=== PATIENT | female | born 1935 | race Native Hawaiian/Other Pacific Islander ===

== ENCOUNTER 2017-08-09 15:29 | Inpatient (IN) | payer MEDICARE, OTHER ==
[2017-08-09] MEDS ORDERED: ASPIRIN 325 MG TAB PO STA (17:19)
[2017-08-09 17:52] LABS: Anisocytosis Slight; Basophils # (A) 0.1 k/uL (0-0.2); Basophils % (A) 1 %; Eosinophils # (A) 0.3 k/uL (0-0.7); Eosinophils % (A) 2 %; Lymphocytes # (A) 2.3 k/uL (1.0-4.8); Lymphocytes % (A) 17 %; MCH 28.1 pg (25.0-35.0); MCHC 33.3 g/dL (31.0-37.0); MCV 84.2 fL (80.0-100.0); Mean Platelet Volume 6.8; Monocytes # (A) 0.9 k/uL (0-1.0); Monocytes % (A) 7 %; Neutrophils # (A) 9.7 k/uL (1.3-7.7); Neutrophils % (A) 71 %; Platelet Count 278 k/uL (150-450); RBC 4.27 m/uL (3.80-5.40); RDW 16.3 % (11.5-15.5); WBC 13.7 k/uL (3.8-10.6)
[2017-08-09 18:04] LABS: Calcium 8.9 mg/dL (8.4-10.2); Potassium 4.4 mmol/L (3.5-5.1)
[2017-08-09 18:07] LABS: Prothrombin Time 10.1 sec (9.0-12.0)
--- NOTE | 2017-08-09 18:13 | XR ---
EXAMINATION TYPE: XR chest 2V DATE OF EXAM: 08/09/2017 COMPARISON: 08/23/2013 HISTORY: Chest pain TECHNIQUE: Frontal and lateral views of the chest are obtained. FINDINGS: There is no heart failure nor confluent pneumonic infiltrate. There is some coarsening of interstitial markings. Bony thorax is intact. Costophrenic angles are clear. IMPRESSION: Mild pulmonary fibrosis. No active cardiopulmonary disease. No change. There is arthritic change noted at the shoulder joints.
[2017-08-09] MEDS ORDERED: traMADol 50 MG TAB PO PRN (20:22)
[2017-08-09] MEDS ORDERED: MORPHINE SULFATE 2 MG/ML SYRINGE IV PRN (20:22)
[2017-08-09] MEDS ORDERED: IBUPROFEN 400 MG TAB PO PRN (20:22)
[2017-08-09] MEDS ORDERED: NALOXONE 0.4 MG/ML 1 ML VIAL IV PRN (20:22)
[2017-08-09] MEDS ORDERED: ONDANSETRON 4 MG/2 ML VIAL IVP PRN (20:22)
[2017-08-09] MEDS ORDERED: ACETAMINOPHEN TAB 325 MG TAB PO PRN (20:22)
--- NOTE | 2017-08-09 20:22 | ED ---
General Adult HPI - General Chief complaint: Back Pain/Injury Stated complaint: left shoulder/back pain Time Seen by Provider: 08/09/17 16:37 Source: family Mode of arrival: ambulatory Limitations: language barrier - History of Present Illness Initial comments: 81-year-old female presenting for evaluation of left upper back pain for the last couple months. She states that there was no identifiable etiology that has been unrelenting. It is nonreproducible and there is no associated chest pain however she does state that she has some paresthesias to her left arm with it. The patient is not very active and is unsure if there is associated worsening with exertion. Denies associated fevers, chills, nausea, vomiting, shortness of breath. She does have risk factors and states she has a family history. Last stress test was years ago and she is unsure when it was. She does have a roofing superintendent Dr. Saha who she follows with. - Related Data Home Medications Medication Instructions Recorded Confirmed Atorvastatin [Lipitor] 10 mg PO HS 08/23/13 08/09/17 Gabapentin [Neurontin] 300 mg PO BID 08/23/13 08/09/17 Hydrocortisone [Cortef] 10 mg PO QAM 08/23/13 08/09/17 Hydrocortisone [Cortef] 20 mg PO HS 08/23/13 08/09/17 Insulin Aspart [NovoLOG 15 unit SQ TID 08/23/13 08/09/17 (formulary)] Insulin Glargine [Lantus] 26 unit SQ DAILY 08/23/13 08/09/17 Levothyroxine Sodium [Synthroid] 137 mcg PO DAILY 08/23/13 08/09/17 Allopurinol [Zyloprim] 100 mg PO DAILY 08/09/17 08/09/17 Carvedilol [Coreg] 25 mg PO HS 08/09/17 08/09/17 Furosemide [Lasix] 20 mg PO DAILY 08/09/17 08/09/17 amLODIPine BESYLATE [Norvasc] 10 mg PO HS 08/09/17 08/09/17 hydrALAZINE HCL [Apresoline] 25 mg PO TID 08/09/17 08/09/17 Allergies Allergy/AdvReac Type Severity Reaction Status Date / Time No Known Allergies Allergy Verified 08/09/17 16:51 Review of Systems ROS Statement: Those systems with pertinent positive or pertinent negative responses have been documented in the HPI. ROS Other: All systems not noted in ROS Statement are negative. Constitutional: Denies: fever, chills Eyes: Denies: eye pain, vision change ENT: Denies: ear pain, throat pain Respiratory: Denies: cough, dyspnea, wheezes Cardiovascular: Denies: chest pain, palpitations, dyspnea on exertion, syncope Endocrine: Denies: fatigue, polydipsia, polyuria Gastrointestinal: Denies: abdominal pain, nausea, vomiting, diarrhea, constipation Genitourinary: Denies: urgency, dysuria Musculoskeletal: Reports: back pain. Denies: arthralgia, myalgia Skin: Denies: rash, lesions Neurological: Reports: paresthesias (left arm). Denies: headache, weakness Psychiatric: Denies: anxiety, depression Hematological/Lymphatic: Denies: easy bleeding, easy bruising Past Medical History Past Medical History: COPD, Diabetes Mellitus, GERD/Reflux, Hyperlipidemia, Hypertension, Osteoarthritis (OA), Thyroid Disorder Additional Past Medical History / Comment(s): Adrenal insufficiency requiring chronic hydrocortisone replacement, menopause, prior UTI, diabetic neuropathy gout History of Any Multi-Drug Resistant Organisms: ESBL Date of last positivie culture/infection: 08-24-13 MDRO Source:: Urine Past Surgical History: Joint Replacement Past Anesthesia/Blood Transfusion Reactions: No Reported Reaction, Postoperative Nausea & Vomiting (PONV) Past Psychological History: No Psychological Hx Reported Smoking Status: Never smoker Past Alcohol Use History: None Reported Past Drug Use History: None Reported General Exam Limitations: language barrier General appearance: alert, in no apparent distress Head exam: Present: atraumatic, normocephalic Eye exam: Present: normal appearance, PERRL, EOMI ENT exam: Present: normal exam, normal oropharynx Neck exam: Present: normal inspection. Absent: tenderness Respiratory exam: Present: normal lung sounds bilaterally. Absent: respiratory distress, wheezes, rales, rhonchi, stridor Cardiovascular Exam: Present: regular rate, normal rhythm GI/Abdominal exam: Present: soft. Absent: distended, tenderness, guarding, rebound, rigid Rectal exam: Present: deferred Extremities exam: Present: normal inspection, full ROM Back exam: Present: normal inspection, full ROM Neurological exam: Present: alert, oriented X3 Psychiatric exam: Present: normal affect, normal mood Skin exam: Present: warm, dry, intact Course Vital Signs 06/22/18 06/22/18 15:37 19:01 Temperature 98.2 F Pulse Rate 90 82 Respiratory 20 18 Rate Blood Pressure 169/73 175/87 O2 Sat by Pulse 97 99 Oximetry EKG Findings - EKG Comments: EKG Findings:: Normal sinus rhythm with LVH and QRS widening and a rate of 80. QRS duration 116 MS Medical Decision Making - Medical Decision Making 81-year-old female with multiple risk factors for ACS (diabetes, hyperlipidemia, family history, hypertension) presented for evaluation of left upper back pain and paresthesias to the left upper extremity. On physical examination she appears to be in no apparent distress and vitals signs are stable. There is no worsened pain with range of motion of the upper extremity or movement of the back. No lower extremity edema, erythema, or pain. Remainder physical exam benign. Labs revealed a leukocytosis of 13.7 and mild kidney abnormalities however this is her baseline. There is an elevation of her BNP 899. Patient was reevaluated and had no change in physical exam. She was informed of all results and through shared decision making it was determined she would be admitted for further treatment and evaluation. Discussed the patient with 's PA who accepted the admission with request for consult with Dr. Saha her roofing superintendent. Admission order placed and bed request submitted. - Lab Data Result diagrams: 08/09/17 17:39 08/09/17 17:39 Lab Results 08/09/17 08/09/17 08/09/17 Range/Units 17:39 17:39 17:39 WBC 13.7 H (3.8-10.6) k/uL RBC 4.27 (3.80-5.40) m/uL Hgb 12.0 (11.4-16.0) gm/dL Hct 36.0 (34.0-46.0) % MCV 84.2 (80.0-100.0) fL MCH 28.1 (25.0-35.0) pg MCHC 33.3 (31.0-37.0) g/dL RDW 16.3 H (11.5-15.5) % Plt Count 278 (150-450) k/uL Neutrophils % 71 % Lymphocytes % 17 % Monocytes % 7 % Eosinophils % 2 % Basophils % 1 % Neutrophils # 9.7 H (1.3-7.7) k/uL Lymphocytes # 2.3 (1.0-4.8) k/uL Monocytes # 0.9 (0-1.0) k/uL Eosinophils # 0.3 (0-0.7) k/uL Basophils # 0.1 (0-0.2) k/uL Anisocytosis Slight PT (9.0-12.0) sec INR (<1.2) APTT (22.0-30.0) sec Sodium 138 (137-145) mmol/L Potassium 4.4 (3.5-5.1) mmol/L Chloride 100 (98-107) mmol/L Carbon Dioxide 25 (22-30) mmol/L Anion Gap 13 mmol/L BUN 33 H (7-17) mg/dL Creatinine 1.32 H (0.52-1.04) mg/dL Est GFR (CKD-EPI)AfAm 44 (>60 ml/min/1.73 sqM) Est GFR (CKD-EPI)NonAf 38 (>60 ml/min/1.73 sqM) Glucose 191 H (74-99) mg/dL Calcium 8.9 (8.4-10.2) mg/dL Troponin I (0.000-0.034) ng/mL NT-Pro-B Natriuret Pep 899 pg/mL 08/09/17 08/09/17 Range/Units 17:39 17:39 WBC (3.8-10.6) k/uL RBC (3.80-5.40) m/uL Hgb (11.4-16.0) gm/dL Hct (34.0-46.0) % MCV (80.0-100.0) fL MCH (25.0-35.0) pg MCHC (31.0-37.0) g/dL RDW (11.5-15.5) % Plt Count (150-450) k/uL Neutrophils % % Lymphocytes % % Monocytes % % Eosinophils % % Basophils % % Neutrophils # (1.3-7.7) k/uL Lymphocytes # (1.0-4.8) k/uL Monocytes # (0-1.0) k/uL Eosinophils # (0-0.7) k/uL Basophils # (0-0.2) k/uL Anisocytosis PT 10.1 (9.0-12.0) sec INR 1.0 (<1.2) APTT 21.0 L (22.0-30.0) sec Sodium (137-145) mmol/L Potassium (3.5-5.1) mmol/L Chloride (98-107) mmol/L Carbon Dioxide (22-30) mmol/L Anion Gap mmol/L BUN (7-17) mg/dL Creatinine (0.52-1.04) mg/dL Est GFR (CKD-EPI)AfAm (>60 ml/min/1.73 sqM) Est GFR (CKD-EPI)NonAf (>60 ml/min/1.73 sqM) Glucose (74-99) mg/dL Calcium (8.4-10.2) mg/dL Troponin I <0.012 (0.000-0.034) ng/mL NT-Pro-B Natriuret Pep pg/mL Disposition Clinical Impression: Moderate coronary artery risk chest pain Disposition: ADMITTED IP TO THIS HOSP Referrals: Lewis Isaac DO [Primary Care Provider] - 1-2 days Time of Disposition: 20:22
[2017-08-09 21:38] VITALS: BMI 32.0
[2017-08-09] MEDS: CARVEDILOL 12.5 MG TAB PO SCH (22:10)
[2017-08-09] MEDS: HYDROCORTISONE 20 MG TAB PO SCH (22:10)
[2017-08-09] MEDS: amLODIPine 10 MG TAB PO SCH (22:10)
[2017-08-09] MEDS: hydrALAZINE HCL 25 MG TAB PO SCH (22:10)
[2017-08-09] MEDS: ATORVASTATIN 10 MG TAB PO SCH (22:10)
[2017-08-09] MEDS: GABAPENTIN 300 MG CAP PO SCH (22:11)
[2017-08-10 01:08] LABS: Creatine Kinase MB 0.7 ng/mL (0.0-2.4)
[2017-08-10] MEDS: LEVOTHYROXINE 137 MCG TAB PO SCH (06:25)
[2017-08-10 06:36] LABS: Anisocytosis Slight; Basophils # (A) 0.1 k/uL (0-0.2); Basophils % (A) 1 %; Eosinophils # (A) 0.2 k/uL (0-0.7); Eosinophils % (A) 2 %; HCT 35.2 % (34.0-46.0); HGB 11.2 gm/dL (11.4-16.0); Lymphocytes # (A) 1.4 k/uL (1.0-4.8); Lymphocytes % (A) 16 %; MCH 27.4 pg (25.0-35.0); MCHC 31.8 g/dL (31.0-37.0); Mean Platelet Volume 7.3; Monocytes # (A) 0.4 k/uL (0-1.0); Monocytes % (A) 5 %; Neutrophils # (A) 6.6 k/uL (1.3-7.7); Neutrophils % (A) 74 %; Platelet Count 247 k/uL (150-450); RDW 16.4 % (11.5-15.5); WBC 8.9 k/uL (3.8-10.6)
[2017-08-10 06:46] LABS: Calcium 8.6 mg/dL (8.4-10.2)
[2017-08-10 06:52] LABS: Potassium 5.7 mmol/L (3.5-5.1)
[2017-08-10 06:54] LABS: Creatine Kinase 57 U/L (30-135)
[2017-08-10 07:06] LABS: Creatine Kinase MB 0.4 ng/mL (0.0-2.4); Troponin I <0.012 ng/mL (0.000-0.034)
[2017-08-10 07:41] LABS: Glucose,Whole Blood 296 mg/dL (75-99)
[2017-08-10] MEDS ORDERED: IBUPROFEN 600 MG TAB PO STA (09:08)
[2017-08-10] MEDS: GABAPENTIN 300 MG CAP PO SCH ×2 (09:32→20:19)
[2017-08-10] MEDS: HYDROCORTISONE 10 MG TAB PO SCH (09:32)
[2017-08-10] MEDS: FUROSEMIDE 20 MG TAB PO SCH (09:32)
[2017-08-10] MEDS: ALLOPURINOL 100 MG TAB PO SCH (09:34)
[2017-08-10] MEDS: hydrALAZINE HCL 25 MG TAB PO SCH ×3 (09:34→20:22)
[2017-08-10] MEDS: INSULIN DETEMIR 100 UNIT/ML 10 ML VIAL SQ SCH (09:34)
[2017-08-10] MEDS: INSULIN ASPART 100 UNIT/ML 1 ML 10 ML VIAL SQ SCH ×5 (10:08→21:10)
--- NOTE | 2017-08-10 11:18 | P.CRDCN ---
History of Present Illness History of present illness: 81-year-old female who speaks mostly Setsw[place] complaining of chest and left shoulder pain but predominantly left shoulder pain that goes around to her back. Blood pressure is fluctuating and has been heart control the past. Cardiac enzymes are normal Blood pressure 139/65 mmHg pulse rate in the 70s ECG does not show any ST segment abnormalities. Suggest CT chest/angiogram to evaluate the aorta. While the BUN and creatinine has improved the potassium is 5.7 today and we would like to repeat this before proceeding with CT of the chest with angina IV fluids 50 mL an hour Past Medical History Past Medical History: COPD, Diabetes Mellitus, GERD/Reflux, Hyperlipidemia, Hypertension, Osteoarthritis (OA), Thyroid Disorder Additional Past Medical History / Comment(s): Adrenal insufficiency requiring chronic hydrocortisone replacement, menopause, prior UTI, diabetic neuropathy gout History of Any Multi-Drug Resistant Organisms: ESBL Date of last positivie culture/infection: 08-24-13 MDRO Source:: Urine Past Surgical History: Joint Replacement Additional Past Surgical History / Comment(s): Total Lt knee replace and total Rt hip replace, cataracts removed bilat, Past Anesthesia/Blood Transfusion Reactions: No Reported Reaction, Postoperative Nausea & Vomiting (PONV) Past Psychological History: No Psychological Hx Reported Smoking Status: Never smoker Past Alcohol Use History: None Reported Past Drug Use History: None Reported - Past Family History Mother Family Medical History: Diabetes Mellitus Medications and Allergies Home Medications Medication Instructions Recorded Confirmed Type Atorvastatin [Lipitor] 10 mg PO HS 08/23/13 08/09/17 History Gabapentin [Neurontin] 300 mg PO BID 08/23/13 08/09/17 History Hydrocortisone [Cortef] 10 mg PO [facility] 08/23/13 08/09/17 History Hydrocortisone [Cortef] 20 mg PO 08/23/13 08/09/17 History Insulin Aspart [NovoLOG 15 unit SQ TID 08/23/13 08/09/17 History (formulary)] Insulin Glargine [Lantus] 26 unit SQ DAILY 08/23/13 08/09/17 History Levothyroxine Sodium [Synthroid] 137 mcg PO DAILY 08/23/13 08/09/17 History Allopurinol [Zyloprim] 100 mg PO DAILY 08/09/17 08/09/17 History Carvedilol [Coreg] 25 mg PO HS 08/09/17 08/09/17 History Furosemide [Lasix] 20 mg PO DAILY 08/09/17 08/09/17 History amLODIPine BESYLATE [Norvasc] 10 mg PO HS 08/09/17 08/09/17 History hydrALAZINE HCL [Apresoline] 25 mg PO TID 08/09/17 08/09/17 History Allergies Allergy/AdvReac Type Severity Reaction Status Date / Time No Known Allergies Allergy Verified 08/09/17 16:51 Physical Exam Vitals: Vital Signs Temp Pulse Pulse Resp BP BP Pulse Ox 08/10/17 08:00 98.1 F 76 16 137/58 95 08/10/17 04:00 98.5 F 72 18 139/65 96 08/10/17 00:00 68 18 08/09/17 23:45 98.3 F 68 18 150/69 95 08/09/17 21:31 98.2 F 78 18 199/86 98 08/09/17 19:01 82 18 175/87 99 08/09/17 15:37 98.2 F 90 20 169/73 97 Intake and Output 08/09/17 08/10/17 08/10/17 22:59 06:59 14:59 Intake Total 450 Balance 450 Intake: Oral 450 Other: Voiding Method Toilet Toilet # Voids 2 Weight 84.7 kg Results 08/10/17 05:33 08/10/17 05:33 Cardiac Enzymes 08/09/17 08/10/17 08/10/17 Range/Units 17:39 00:11 05:41 CK-MB (CK-2) 0.7 0.4 (0.0-2.4) ng/mL Troponin I <0.012 <0.012 (0.000-0.034) ng/mL Coagulation 08/09/17 Range/Units 17:39 PT 10.1 (9.0-12.0) sec APTT 21.0 L (22.0-30.0) sec CBC 08/09/17 08/10/17 Range/Units 17:39 05:33 WBC 13.7 H 8.9 (3.8-10.6) k/uL RBC 4.27 4.10 (3.80-5.40) m/uL Hgb 12.0 11.2 L (11.4-16.0) gm/dL Hct 36.0 35.2 (34.0-46.0) % Plt Count 278 247 (150-450) k/uL Comprehensive Metabolic Panel 08/09/17 08/10/17 Range/Units 17:39 05:33 Sodium 138 136 L (137-145) mmol/L Potassium 4.4 5.7 H (3.5-5.1) mmol/L Chloride 100 101 (98-107) mmol/L Carbon Dioxide 25 23 (22-30) mmol/L BUN 33 H 32 H (7-17) mg/dL Creatinine 1.32 H 1.15 H (0.52-1.04) mg/dL Glucose 191 H 325 H (74-99) mg/dL Calcium 8.9 8.6 (8.4-10.2) mg/dL Current Medications Generic Name Dose Route Start Last Admin Trade Name Freq PRN Reason Stop Dose Admin Acetaminophen 650 mg 08/09/17 20:22 Tylenol Tab PO Q6HR PRN Mild Pain or Fever > 100.5 Allopurinol 100 mg 08/10/17 09:00 08/10/17 09:34 Zyloprim PO 100 mg DAILY [facility] Administration Amlodipine Besylate 10 mg 08/09/17 21:00 08/09/17 22:10 Norvasc PO 10 mg HS [place] Administration Atorvastatin Calcium 10 mg 08/09/17 21:00 08/09/17 22:10 Lipitor PO 10 mg HS [place] Administration Carvedilol 25 mg 08/09/17 21:00 08/09/17 22:10 Coreg PO 25 mg HS [place] Administration Furosemide 20 mg 08/10/17 09:00 08/10/17 09:32 Lasix PO 20 mg DAILY [facility] Administration Gabapentin 300 mg 08/09/17 21:00 08/10/17 09:32 Neurontin PO 300 mg BID [place] Administration Hydralazine HCl 25 mg 08/09/17 22:00 08/10/17 09:34 Apresoline PO 25 mg TID [place] Administration Hydrocortisone 20 mg 08/09/17 21:00 08/09/17 22:10 Cortef PO 20 mg HS [facility] Administration Hydrocortisone 10 mg 08/10/17 09:00 08/10/17 09:32 Cortef PO 10 mg QAM [facility] Administration Ibuprofen 400 mg 08/09/17 20:22 Motrin PO Q6HR PRN Mild Pain or Fever > 100.5 Insulin Aspart 15 unit 08/10/17 07:30 08/10/17 10:08 Novolog SQ 15 unit AC-TID [facility] Administration Insulin Detemir 26 unit 08/10/17 09:00 08/10/17 09:34 Levemir SQ 26 unit DAILY [facility] Administration Levothyroxine Sodium 137 mcg 08/10/17 06:30 08/10/17 06:25 Synthroid PO 137 mcg DAILY@0630 [facility] Administration Morphine Sulfate 4 mg 08/09/17 20:22 Morphine Sulfate (Inj) IV Q4HR PRN Severe Pain Naloxone HCl 0.2 mg 08/09/17 20:22 Narcan IV Q2M PRN Opioid Reversal Ondansetron HCl 4 mg 08/09/17 20:22 Zofran IVP Q8HR PRN Nausea And Vomiting Tramadol HCl 50 mg 08/09/17 20:22 Ultram PO Q6H PRN Moderate Pain Intake and Output 08/09/17 08/10/17 08/10/17 22:59 06:59 14:59 Intake Total 450 Balance 450 Intake: Oral 450 Other: Voiding Method Toilet Toilet # Voids 2 Weight 84.7 kg 08/10/17 05:33 08/10/17 05:33
--- NOTE | 2017-08-10 11:25 | P.CRDCN ---
History of Present Illness History of present illness: Mrs. Casarez is a pleasant [place] female. Past medical history significant for diabetes mellitus, hypertension and dyslipidemia. If necessary consultation for symptoms of chest discomfort. The patient does not speak very good [place] and a staff member assisted with interpretation during the exam. The patient complains of an achy sensation in the left upper back radiates across to the right shoulder and into the left shoulder and in down into the left arm. She states this has been ongoing for a couple of months. No specific aggravating or alleviating factor. She does however states she has a history of arthritis. She states this achy sensation does feel similar to her arthritic pain. She denies associated shortness of breath, nausea, vomiting, diaphoresis, palpitations or dizziness. She follows in the office with Dr. Saha. She recently had an echocardiogram in the office 07/30/2017 which revealed normal left ventricular systolic function with ejection fraction 55% with mild mitral regurgitation noted. EKG on arrival reveals sinus mechanism with no acute ST or T wave abnormalities noted evidence of left ventricular hypertrophy. Chest x-ray reveals mild pulmonary fibrosis with no acute cardiopulmonary process. There is arthritic changes noted at the shoulder joints. Laboratory data reviewed, WBC on admission 13.7 repeat this morning 8.9, hemoglobin 11.2, platelets 247, sodium 136, potassium 5.7, creatinine on admission 1.32 repeat this morning 1.15, cardiac enzymes negative 2, proBNP 899. Recent stress test performed in the office 2014 with a Lexiscan stress test which was negative for reversible cardiac ischemia. Current cardiac medications include atorvastatin 10 mg daily, carvedilol 25 mg daily, Lasix 20 mg daily, amlodipine 10 mg daily and hydralazine 25 mg 3 times a day. At the time of my exam: CONSTITUTIONAL: Denies fever. Denies chills. EYES: Denies blurred vision. Denies vision changes. Denies eye pain. EARS, NOSE, MOUTH & THROAT: Denies headache. Denies sore throat. Denies ear pain. CARDIOVASCULAR: Denies chest pain. Denies shortness of breath. Denies orthopnea. Denies PND. Denies palpitations. RESPIRATORY: Denies cough. GASTROINTESTINAL: Denies abdominal pain. Denies diarrhea. Denies constipation. Denies nausea. Denies vomiting. MUSCULOSKELETAL: Dull ache to the left upper back in the scapular region as well as bilateral shoulder discomfort. INTEGUMENTARY: Denies pruitis. Denies rash. NEUROLOGIC: Denies numbness. Denies tingling. Denies weakness. PSYCHIATRIC: Denies anxiety. Denies depression. ENDOCRINE: Denies fatigue. Denies weight change. Denies polydipsia. Denies polyurina. GENITOURINARY: Denies burning, hematuria or urgency with micturation. HEMATOLOGIC: Denies history of anemia. Denies bleeding. Blood pressure 137/58 heart rate 76 afebrile maintaining oxygen saturation on room air GENERAL: This is a 81-year-old occasion female in no apparent distress at the time of my examination. HEENT: Head is atraumatic, normocephalic. Pupils are equal, round. Sclerae anicteric. Conjunctivae are clear. Mucous membranes of the mouth are moist. Neck is supple. There is no jugular venous distention. No carotid bruit is heard. LUNGS: Clear to auscultation no wheezes, rales or rhonchi. No chest wall tenderness is noted on palpation or with deep breathing. HEART: Regular rate and rhythm with systolic murmur at the left sternal border, no rubs or gallops. S1 and S2 heard. ABDOMEN: Soft, nontender. Bowel sounds are heard. No organomegaly noted. EXTREMITIES: No evidence of peripheral edema and no calf tenderness noted. Mild discomfort to the posterior left shoulder with movement. VASCULAR: Radial and dorsalis pedis pulses palpated, no evidence of clubbing. NEUROLOGIC: Patient is awake, alert and oriented x3. ASSESSMENT 1. Musculoskeletal shoulder and back pain 2. Hypertension 3. Dyslipidemia 4. Diabetes mellitus 5. COPD 6. Gastroesophageal reflux disease 7. Chronic kidney disease, GFR 38, stage III PLAN We will not repeat an echocardiogram this admission since she just had one in the office which was normal. Give dose of ibuprofen now for pain. Hydrate with normal saline, repeat bmp this afternoon. If potassium is normal we will order a CT angio of the chest to assess aorta. Further recommendations to follow. Thank you kindly for this consultation. Nurse Practitioner note has been reviewed, I agree with a documented findings and plan of care. Patient was seen and examined. Past Medical History Past Medical History: COPD, Diabetes Mellitus, GERD/Reflux, Hyperlipidemia, Hypertension, Osteoarthritis (OA), Thyroid Disorder Additional Past Medical History / Comment(s): Adrenal insufficiency requiring chronic hydrocortisone replacement, menopause, prior UTI, diabetic neuropathy gout History of Any Multi-Drug Resistant Organisms: ESBL Date of last positivie culture/infection: 08-24-13 MDRO Source:: Urine Past Surgical History: Joint Replacement Additional Past Surgical History / Comment(s): Total Lt knee replace and total Rt hip replace, cataracts removed bilat, Past Anesthesia/Blood Transfusion Reactions: No Reported Reaction, Postoperative Nausea & Vomiting (PONV) Past Psychological History: No Psychological Hx Reported Smoking Status: Never smoker Past Alcohol Use History: None Reported Past Drug Use History: None Reported - Past Family History Mother Family Medical History: Diabetes Mellitus Medications and Allergies Home Medications Medication Instructions Recorded Confirmed Type Atorvastatin [Lipitor] 10 mg PO HS 08/23/13 08/09/17 History Gabapentin [Neurontin] 300 mg PO BID 08/23/13 08/09/17 History Hydrocortisone [Cortef] 10 mg PO QAM 08/23/13 08/09/17 History Hydrocortisone [Cortef] 20 mg PO HS 08/23/13 08/09/17 History Insulin Aspart [NovoLOG 15 unit SQ TID 08/23/13 08/09/17 History (formulary)] Insulin Glargine [Lantus] 26 unit SQ DAILY 08/23/13 08/09/17 History Levothyroxine Sodium [Synthroid] 137 mcg PO DAILY 08/23/13 08/09/17 History Allopurinol [Zyloprim] 100 mg PO DAILY 08/09/17 08/09/17 History Carvedilol [Coreg] 25 mg PO HS 08/09/17 08/09/17 History Furosemide [Lasix] 20 mg PO DAILY 08/09/17 08/09/17 History amLODIPine BESYLATE [Norvasc] 10 mg PO HS 08/09/17 08/09/17 History hydrALAZINE HCL [Apresoline] 25 mg PO TID 08/09/17 08/09/17 History Allergies Allergy/AdvReac Type Severity Reaction Status Date / Time No Known Allergies Allergy Verified 08/09/17 16:51 Physical Exam Vitals: Vital Signs Temp Pulse Pulse Resp BP BP Pulse Ox 08/10/17 04:00 98.5 F 72 18 139/65 96 08/10/17 00:00 68 18 08/09/17 23:45 98.3 F 68 18 150/69 95 08/09/17 21:31 98.2 F 78 18 199/86 98 08/09/17 19:01 82 18 175/87 99 08/09/17 15:37 98.2 F 90 20 169/73 97 Intake and Output 08/09/17 08/10/17 08/10/17 22:59 06:59 14:59 Intake Total 450 Balance 450 Intake: Oral 450 Other: Voiding Method Toilet # Voids 2 Weight 84.7 kg Results 08/10/17 05:33 08/10/17 05:33 Cardiac Enzymes 08/09/17 08/10/17 08/10/17 Range/Units 17:39 00:11 05:41 CK-MB (CK-2) 0.7 0.4 (0.0-2.4) ng/mL Troponin I <0.012 <0.012 (0.000-0.034) ng/mL Coagulation 08/09/17 Range/Units 17:39 PT 10.1 (9.0-12.0) sec APTT 21.0 L (22.0-30.0) sec CBC 08/09/17 08/10/17 Range/Units 17:39 05:33 WBC 13.7 H 8.9 (3.8-10.6) k/uL RBC 4.27 4.10 (3.80-5.40) m/uL Hgb 12.0 11.2 L (11.4-16.0) gm/dL Hct 36.0 35.2 (34.0-46.0) % Plt Count 278 247 (150-450) k/uL Comprehensive Metabolic Panel 08/09/17 08/10/17 Range/Units 17:39 05:33 Sodium 138 136 L (137-145) mmol/L Potassium 4.4 5.7 H (3.5-5.1) mmol/L Chloride 100 101 (98-107) mmol/L Carbon Dioxide 25 23 (22-30) mmol/L BUN 33 H 32 H (7-17) mg/dL Creatinine 1.32 H 1.15 H (0.52-1.04) mg/dL Glucose 191 H 325 H (74-99) mg/dL Calcium 8.9 8.6 (8.4-10.2) mg/dL Current Medications Generic Name Dose Route Start Last Admin Trade Name Freq PRN Reason Stop Dose Admin Acetaminophen 650 mg 08/09/17 20:22 Tylenol Tab PO Q6HR PRN Mild Pain or Fever > 100.5 Allopurinol 100 mg 08/10/17 09:00 Zyloprim PO DAILY [facility] Amlodipine Besylate 10 mg 08/09/17 21:00 08/09/17 22:10 Norvasc PO 10 mg HS [facility] Administration Atorvastatin Calcium 10 mg 08/09/17 21:00 08/09/17 22:10 Lipitor PO 10 mg HS [facility] Administration Carvedilol 25 mg 08/09/17 21:00 08/09/17 22:10 Coreg PO 25 mg HS [facility] Administration Furosemide 20 mg 08/10/17 09:00 Lasix PO DAILY [facility] Gabapentin 300 mg 08/09/17 21:00 08/09/17 22:11 Neurontin PO 300 mg BID [facility] Administration Hydralazine HCl 25 mg 08/09/17 22:00 08/09/17 22:10 Apresoline PO 25 mg TID [facility] Administration Hydrocortisone 20 mg 08/09/17 21:00 08/09/17 22:10 Cortef PO 20 mg HS [facility] Administration Hydrocortisone 10 mg 08/10/17 09:00 Cortef PO QAM [facility] Ibuprofen 400 mg 08/09/17 20:22 Motrin PO Q6HR PRN Mild Pain or Fever > 100.5 Insulin Aspart 15 unit 08/10/17 07:30 Novolog SQ AC-TID [facility] Insulin Detemir 26 unit 08/10/17 09:00 Levemir SQ DAILY [facility] Levothyroxine Sodium 137 mcg 08/10/17 06:30 08/10/17 06:25 Synthroid PO 137 mcg DAILY@0630 [facility] Administration Morphine Sulfate 4 mg 08/09/17 20:22 Morphine Sulfate (Inj) IV Q4HR PRN Severe Pain Naloxone HCl 0.2 mg 08/09/17 20:22 Narcan IV Q2M PRN Opioid Reversal Ondansetron HCl 4 mg 08/09/17 20:22 Zofran IVP Q8HR PRN Nausea And Vomiting Tramadol HCl 50 mg 08/09/17 20:22 Ultram PO Q6H PRN Moderate Pain Intake and Output 08/09/17 08/10/17 08/10/17 22:59 06:59 14:59 Intake Total 450 Balance 450 Intake: Oral 450 Other: Voiding Method Toilet # Voids 2 Weight 84.7 kg 08/10/17 05:33 08/10/17 05:33
[2017-08-10] MEDS: SODIUM CHLORIDE 0.9% 1,000 ML IV SCH ×2 (12:41→15:06)
[2017-08-10 12:48] LABS: Glucose,Whole Blood 340 mg/dL (75-99)
[2017-08-10 13:03] LABS: Hemoglobin A1C 8.8 % (4.0-6.0)
[2017-08-10 13:39] LABS: Potassium 4.7 mmol/L (3.5-5.1)
--- NOTE | 2017-08-10 16:17 | P.HPIM ---
History of Present Illness Patient is German speaking or and translation was done with the help of her daughters at bedside This is a pleasant 81 years old female with past medical history of COPD on no home oxygen, diabetes mellitus, GERD, hyperlipidemia, hypertension, history of arthritis, thyroid disorder, adrenal insufficiency on chronic hydrocortisone replacement therapy, history of UTI and diabetic neuropathy, and gout who presents because of left upper back pain for 2 months associated with numbness in her left upper extremity. Patient has been evaluated in the emergency room and showing her sodium 136, potassium 5.7 creatinine 1.31 down to 1.125 GFR 44, 52. Troponins are negative. Chest x-ray shows no active cardiopulmonary disease. Patient has been evaluated by design painter was suspected aortic disease for example dissecting aortic aneurysm and recommended CT angina which was already done. By the time I saw the patient on the floor her upper back pain was minimal and almost resolved however patient is still complaining of from numbness in her left upper extremity Review of Systems CONSTITUTIONAL: No fever, no malaise, no fatigue. HEENT: No recent visual problems or hearing problems. Denied any sore throat. CARDIOVASCULAR: No orthopnea, PND, no palpitations, no syncope. PULMONARY: No shortness of breath, no cough, no hemoptysis. GASTROINTESTINAL: No diarrhea, no nausea, no vomiting, no abdominal pain. Normoactive bowel sounds. NEUROLOGICAL: No headaches, no weakness, no numbness. HEMATOLOGICAL: Denies any bleeding or petechiae. GENITOURINARY: Denies any burning micturition, frequency, or urgency. MUSCULOSKELETAL/RHEUMATOLOGICAL: Denies any joint pain, swelling, or any muscle pain. ENDOCRINE: Denies any polyuria or polydipsia. Past Medical History Past Medical History: COPD, Diabetes Mellitus, GERD/Reflux, Hyperlipidemia, Hypertension, Osteoarthritis (OA), Thyroid Disorder Additional Past Medical History / Comment(s): Adrenal insufficiency requiring chronic hydrocortisone replacement, menopause, prior UTI, diabetic neuropathy gout History of Any Multi-Drug Resistant Organisms: ESBL Date of last positivie culture/infection: 08-24-13 MDRO Source:: Urine Past Surgical History: Joint Replacement Additional Past Surgical History / Comment(s): Total Lt knee replace and total Rt hip replace, cataracts removed bilat, Past Anesthesia/Blood Transfusion Reactions: No Reported Reaction, Postoperative Nausea & Vomiting (PONV) Past Psychological History: No Psychological Hx Reported Smoking Status: Never smoker Past Alcohol Use History: None Reported Past Drug Use History: None Reported - Past Family History Mother Family Medical History: Diabetes Mellitus Medications and Allergies Home Medications Medication Instructions Recorded Confirmed Type Atorvastatin [Lipitor] 10 mg PO HS 08/23/13 08/09/17 History Gabapentin [Neurontin] 300 mg PO BID 08/23/13 08/09/17 History Hydrocortisone [Cortef] 10 mg PO QAM 08/23/13 08/09/17 History Hydrocortisone [Cortef] 20 mg PO HS 08/23/13 08/09/17 History Insulin Aspart [NovoLOG 15 unit SQ TID 08/23/13 08/09/17 History (formulary)] Insulin Glargine [Lantus] 26 unit SQ DAILY 08/23/13 08/09/17 History Levothyroxine Sodium [Synthroid] 137 mcg PO DAILY 08/23/13 08/09/17 History Allopurinol [Zyloprim] 100 mg PO DAILY 08/09/17 08/09/17 History Carvedilol [Coreg] 25 mg PO HS 08/09/17 08/09/17 History Furosemide [Lasix] 20 mg PO DAILY 08/09/17 08/09/17 History amLODIPine BESYLATE [Norvasc] 10 mg PO HS 08/09/17 08/09/17 History hydrALAZINE HCL [Apresoline] 25 mg PO TID 08/09/17 08/09/17 History Allergies Allergy/AdvReac Type Severity Reaction Status Date / Time No Known Allergies Allergy Verified 08/09/17 16:51 Physical Exam Vitals: Vital Signs Temp Pulse Pulse Resp BP BP Pulse Ox 08/10/17 12:00 97.9 F 78 16 166/75 98 08/10/17 08:00 98.1 F 76 16 137/58 95 08/10/17 04:00 98.5 F 72 18 139/65 96 08/10/17 00:00 68 18 08/09/17 23:45 98.3 F 68 18 150/69 95 08/09/17 21:31 98.2 F 78 18 199/86 98 08/09/17 19:01 82 18 175/87 99 Intake and Output 08/10/17 08/10/17 08/10/17 06:59 14:59 22:59 Intake Total 450 120 Balance 450 120 Intake: Oral 450 120 Other: Voiding Method Toilet Toilet # Voids 2 Weight 84.2 kg GENERAL: The patient is alert and oriented x3, not in any acute distress. Well developed, well nourished. HEENT: Pupils are round and equally reacting to light. EOMI. No scleral icterus. No conjunctival pallor. Normocephalic, atraumatic. No pharyngeal erythema. No thyromegaly. CARDIOVASCULAR: S1 and S2 present. No murmurs, rubs, or gallops. PULMONARY: Chest is clear to auscultation, no wheezing or crackles. ABDOMEN: Soft, nontender, nondistended, normoactive bowel sounds. No palpable organomegaly. MUSCULOSKELETAL: No joint swelling or deformity. EXTREMITIES: No cyanosis, clubbing, or pedal edema. NEUROLOGICAL: Gross neurological examination did not reveal any focal deficits. SKIN: No rashes. Results CBC & Chem 7: 08/10/17 05:33 08/10/17 13:15 Labs: Abnormal Lab Results - Last 24 Hours (Table) 08/09/17 08/09/17 08/09/17 Range/Units 17:39 17:39 17:39 WBC 13.7 H (3.8-10.6) k/uL Hgb (11.4-16.0) gm/dL RDW 16.3 H (11.5-15.5) % Neutrophils # 9.7 H (1.3-7.7) k/uL APTT 21.0 L (22.0-30.0) sec Sodium (137-145) mmol/L Potassium (3.5-5.1) mmol/L BUN 33 H (7-17) mg/dL Creatinine 1.32 H (0.52-1.04) mg/dL Glucose 191 H (74-99) mg/dL POC Glucose (mg/dL) (75-99) mg/dL 08/10/17 08/10/17 08/10/17 Range/Units 05:33 05:33 07:26 WBC (3.8-10.6) k/uL Hgb 11.2 L (11.4-16.0) gm/dL RDW 16.4 H (11.5-15.5) % Neutrophils # (1.3-7.7) k/uL APTT (22.0-30.0) sec Sodium 136 L (137-145) mmol/L Potassium 5.7 H (3.5-5.1) mmol/L BUN 32 H (7-17) mg/dL Creatinine 1.15 H (0.52-1.04) mg/dL Glucose 325 H (74-99) mg/dL POC Glucose (mg/dL) 296 H (75-99) mg/dL 08/10/17 08/10/17 Range/Units 12:28 13:15 WBC (3.8-10.6) k/uL Hgb (11.4-16.0) gm/dL RDW (11.5-15.5) % Neutrophils # (1.3-7.7) k/uL APTT (22.0-30.0) sec Sodium (137-145) mmol/L Potassium (3.5-5.1) mmol/L BUN 29 H (7-17) mg/dL Creatinine 1.20 H (0.52-1.04) mg/dL Glucose 348 H (74-99) mg/dL POC Glucose (mg/dL) 340 H (75-99) mg/dL Thrombosis Risk Factor Assmnt - Choose All That Apply Each Factor Represents 1 point: Swollen legs (current) Each Risk Factor Represents 3 Points: Age 75 years or older Thrombosis Risk Factor Assessment Total Risk Factor Score: 4 Thrombosis Risk Factor Assessment Level: Moderate Risk Assessment and Plan Plan: -Left upper back pain, suspicious for aortic dissection. Pouncer evaluated the patient and recommended CT angio. Continue with pain management -History of diabetes continue with Levemir 26 units daily and NovoLog 15 units 3 times a day with meals -Chronic kidney disease stage III with GFR between 44 and 52, patient already got IV contrast. And she is already on IV fluids normal saline at 75 mL/h. Follow-up creatinine level. DC ibuprofen -Bilateral lower extremity swelling, we'll check Doppler to rule out DVT -History of gout, continue with same and treatment -History of arterial insufficiency on Cortef 10 mg daily and 20 mg at bedtime -History of hypertension on hydralazine and Norvasc and Coreg -DVT prophylaxis, SCDs. No heparin in view SUSPECTED aortic aneurysm and bleeding risk GI prophylaxis continue with Pepcid PT OT is pending
[2017-08-10 17:03] LABS: Glucose,Whole Blood 297 mg/dL (75-99)
[2017-08-10] MEDS: FAMOTIDINE 20 MG/2 ML VIAL IV SCH (17:16)
[2017-08-10 17:31] LABS: Calcium 9.3 mg/dL (8.4-10.2); Potassium 4.6 mmol/L (3.5-5.1)
--- NOTE | 2017-08-10 20:08 | US ---
EXAMINATION TYPE: US venous doppler duplex LE BI DATE OF EXAM: 08/10/2017 4:17 PM COMPARISON: 81-year-old female CLINICAL HISTORY: Rule out DVT. Bilateral leg swelling. Not on blood thinners. No redness. SIDE PERFORMED: Bilateral TECHNIQUE: The lower extremity deep venous system is examined utilizing real time linear array sonog john with graded compression, doppler sonography and color-flow sonography. FINDINGS: VESSELS IMAGED: External Iliac Vein (EIV) Common Femoral Vein Deep Femoral Vein Greater Saphenous Vein * Femoral Vein Popliteal Vein Small Saphenous Vein * Proximal Calf Veins (* superficial vessels) Right Leg: Negative for DVT Left Leg: Negative for DVT IMPRESSION: No evidence for DVT within the bilateral lower extremities imaged from the groin to the upper calves.
[2017-08-10] MEDS: ATORVASTATIN 10 MG TAB PO SCH (20:19)
[2017-08-10] MEDS: CARVEDILOL 12.5 MG TAB PO SCH (20:19)
[2017-08-10] MEDS: amLODIPine 10 MG TAB PO SCH (20:19)
[2017-08-10] MEDS: HYDROCORTISONE 20 MG TAB PO SCH (20:19)
[2017-08-10 20:49] LABS: Glucose,Whole Blood 127 mg/dL (75-99)
--- NOTE | 2017-08-10 21:27 | CT ---
EXAMINATION TYPE: CT angio thoracic/abd aorta DATE OF EXAM: 08/10/2017 COMPARISON: Abdomen and pelvis 08/23/2013 HISTORY: 81-year-old female with pain, assess aorta for dissection TECHNIQUE: Contiguous axial scanning of the chest, abdomen, and pelvis performed with IV Contrast, pa tient injected with 80 mL of Isovue 370. Coronal/sagittal MIP reconstructions performed. 3-D reconstr uctions generated on a dedicated independent workstation. CT DLP: 814 mGycm Automated exposure control for dose reduction was used. FINDINGS: Heart is upper limits of normal in size without pericardial effusion. Scattered coronary vessel calci fications are present entering marker for coronary artery disease. The aorta is normal caliber with a bovine configuration to the aortic arch and mild atherosclerotic a rch calcifications. The descending thoracic aorta is mildly tortuous. No evidence for aortic dissecti on. Prominent but nonenlarged 9 mm right paratracheal lymph node. Prominent but not enlarged 1.3 cm subca rinal lymph node. No thoracic lymphadenopathy by CT size criteria. Strandy atelectasis at the lung bases. No pleural effusion. ABDOMEN: Small hiatal hernia. Liver mildly enlarged at 19.4 cm. Arterial phase imaging of the liver, gallbladd er, adrenal glands, kidneys, spleen, and pancreas show no gross abnormally. No dilated small bowel, free fluid, or free air. Some prominent fluid-filled small bowel loops in the mid and lower abdomen and pelvis nonspecific possibly transient. No mesenteric or retroperitoneal ly mphadenopathy. Mild atherosclerotic calcification within the abdominal aorta without aneurysm. Moderate atherosclero tic calcifications at the origin of the celiac axis and mild at the origin of the SMA. Contreras clara l arteries. Scattered mild to moderate stool with left hemicolonic diverticulosis greatest in the sigmoid colon. No pericolonic inflammatory change. Pelvis: Bladder urine distended. There is a small uterus with arcuate vessel calcifications. No adnexal mass or pelvic free fluid. No pelvic lymphadenopathy identified. 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 Degenerative changes throughout the lumbar spine with grade 1 anterolisthesis at L4- L5 and grade 1 retrolisthesis at L1-L2. Baastrup's disease. End-stage degenerative change of the righ t shoulder and severe at the left. IMPRESSION: 1. NO EVIDENCE FOR AORTIC DISSECTION OR ANEURYSM. 2. SMALL HIATAL HERNIA, HEPATOMEGALY (19.4 CM) AND LEFT-SIDED COLONIC DIVERTICULOSIS, GREATEST IN THE SIGMOID COLON. 3. SOME PROMINENT FLUID-FILLED SMALL BOWEL LOOPS COULD BE TRANSIENT OR COULD REPRESENT AN ENTERITIS.
[2017-08-11 03:51] LABS: Bilirubin, Delta 0.2 mg/dL (0.0-0.2); Total Bilirubin 0.2 mg/dL (0.2-1.3); Total Protein 7.6 g/dL (6.3-8.2)
[2017-08-11 06:17] LABS: Glucose,Whole Blood 244 mg/dL (75-99)
[2017-08-11] MEDS: LEVOTHYROXINE 137 MCG TAB PO SCH (06:39)
[2017-08-11] MEDS: INSULIN ASPART 100 UNIT/ML 1 ML 10 ML VIAL SQ SCH ×7 (07:00→21:59)
[2017-08-11 07:19] LABS: Albumin 3.2 g/dL (3.5-5.0); Bilirubin, Delta 0.2 mg/dL (0.0-0.2); Calcium 8.3 mg/dL (8.4-10.2); Potassium 4.7 mmol/L (3.5-5.1); Total Bilirubin 0.2 mg/dL (0.2-1.3); Total Protein 6.1 g/dL (6.3-8.2)
[2017-08-11 07:24] LABS: Anisocytosis Slight; Basophils # (A) 0.1 k/uL (0-0.2); Basophils % (A) 1 %; Eosinophils # (A) 0.2 k/uL (0-0.7); Eosinophils % (A) 2 %; HCT 33.4 % (34.0-46.0); HGB 11.1 gm/dL (11.4-16.0); Lymphocytes % (A) 19 %; MCH 28.4 pg (25.0-35.0); MCHC 33.2 g/dL (31.0-37.0); MCV 85.5 fL (80.0-100.0); Mean Platelet Volume 7.4; Monocytes # (A) 0.6 k/uL (0-1.0); Monocytes % (A) 6 %; Neutrophils # (A) 7.4 k/uL (1.3-7.7); Neutrophils % (A) 70 %; Platelet Count 252 k/uL (150-450); RDW 16.3 % (11.5-15.5); WBC 10.4 k/uL (3.8-10.6)
[2017-08-11] MEDS: INSULIN DETEMIR 100 UNIT/ML 10 ML VIAL SQ SCH (08:09)
[2017-08-11] MEDS: FAMOTIDINE 20 MG/2 ML VIAL IV SCH (08:10)
[2017-08-11] MEDS: FUROSEMIDE 20 MG TAB PO SCH (08:10)
[2017-08-11] MEDS: GABAPENTIN 300 MG CAP PO SCH ×2 (08:10→20:36)
[2017-08-11] MEDS: ALLOPURINOL 100 MG TAB PO SCH (08:10)
[2017-08-11] MEDS: hydrALAZINE HCL 25 MG TAB PO SCH (08:11)
[2017-08-11] MEDS: HYDROCORTISONE 10 MG TAB PO SCH (08:11)
--- NOTE | 2017-08-11 09:01 | P.PN ---
Subjective Patient is Croatian speaking or and translation was done with the help of her daughters at bedside This is a pleasant 81 years old female with past medical history of COPD on no home oxygen, diabetes mellitus, GERD, hyperlipidemia, hypertension, history of arthritis, thyroid disorder, adrenal insufficiency on chronic hydrocortisone replacement therapy, history of UTI and diabetic neuropathy, and gout who presents because of left upper back pain for 2 months associated with numbness in her left upper extremity. Patient has been evaluated in the emergency room and showing her sodium 136, potassium 5.7 creatinine 1.31 down to 1.125 GFR 44, 52. Troponins are negative. Chest x-ray shows no active cardiopulmonary disease. Patient has been evaluated by dag coater was suspected aortic disease for example dissecting aortic aneurysm and recommended CT angina which was already done. By the time I saw the patient on the floor her upper back pain was minimal and almost resolved however patient is still complaining of from numbness in her left upper extremity Review of Systems CONSTITUTIONAL: No fever, no malaise, no fatigue. HEENT: No recent visual problems or hearing problems. Denied any sore throat. CARDIOVASCULAR: No orthopnea, PND, no palpitations, no syncope. PULMONARY: No shortness of breath, no cough, no hemoptysis. GASTROINTESTINAL: No diarrhea, no nausea, no vomiting, no abdominal pain. Normoactive bowel sounds. NEUROLOGICAL: No headaches, no weakness, no numbness. HEMATOLOGICAL: Denies any bleeding or petechiae. GENITOURINARY: Denies any burning micturition, frequency, or urgency. MUSCULOSKELETAL/RHEUMATOLOGICAL: Denies any joint pain, swelling, or any muscle pain. ENDOCRINE: Denies any polyuria or polydipsia. Objective - Vital Signs Vital signs: Vital Signs Temp 97.1 F L 08/11/17 08:10 Pulse 76 08/11/17 08:10 Resp 16 08/11/17 08:10 BP 151/67 08/11/17 08:10 Pulse Ox 97 08/11/17 08:10 Intake & Output 08/10/17 08/11/17 08/11/17 18:59 06:59 18:59 Intake Total 660 650 240 Balance 660 650 240 Weight 84.2 kg 83.1 kg Intake: Intake, IV Titration 300 650 Amount Sodium Chloride 0.9% 1, 300 650 000 ml @ 75 mls/hr IV . [id number] [facility] Rx#:[id number] Oral 360 240 Other: Voiding Method Toilet Toilet # Voids 2 - Exam GENERAL: The patient is alert and oriented x3, not in any acute distress. Well developed, well nourished. HEENT: Pupils are round and equally reacting to light. EOMI. No scleral icterus. No conjunctival pallor. Normocephalic, atraumatic. No pharyngeal erythema. No thyromegaly. CARDIOVASCULAR: S1 and S2 present. No murmurs, rubs, or gallops. PULMONARY: Chest is clear to auscultation, no wheezing or crackles. ABDOMEN: Soft, nontender, nondistended, normoactive bowel sounds. No palpable organomegaly. MUSCULOSKELETAL: No joint swelling or deformity. EXTREMITIES: No cyanosis, clubbing, or pedal edema. NEUROLOGICAL: Gross neurological examination did not reveal any focal deficits. SKIN: No rashes. - Labs CBC & Chem 7: 08/11/17 05:54 08/11/17 05:54 Labs: Abnormal Lab Results - Last 24 Hours (Table) 08/10/17 08/10/17 08/10/17 Range/Units 05:33 12:28 13:15 Hgb (11.4-16.0) gm/dL Hct (34.0-46.0) % RDW (11.5-15.5) % Carbon Dioxide (22-30) mmol/L BUN 29 H (7-17) mg/dL Creatinine 1.20 H (0.52-1.04) mg/dL Glucose 348 H (74-99) mg/dL POC Glucose (mg/dL) 340 H (75-99) mg/dL Hemoglobin A1c 8.8 H (4.0-6.0) % Calcium (8.4-10.2) mg/dL Total Protein (6.3-8.2) g/dL Albumin (3.5-5.0) g/dL 08/10/17 08/10/17 08/10/17 Range/Units 16:40 16:51 20:47 Hgb (11.4-16.0) gm/dL Hct (34.0-46.0) % RDW (11.5-15.5) % Carbon Dioxide (22-30) mmol/L BUN 30 H (7-17) mg/dL Creatinine 1.40 H (0.52-1.04) mg/dL Glucose 273 H (74-99) mg/dL POC Glucose (mg/dL) 297 H 127 H (75-99) mg/dL Hemoglobin A1c (4.0-6.0) % Calcium (8.4-10.2) mg/dL Total Protein (6.3-8.2) g/dL Albumin (3.5-5.0) g/dL 08/11/17 08/11/17 08/11/17 Range/Units 05:54 05:54 06:15 Hgb 11.1 L (11.4-16.0) gm/dL Hct 33.4 L (34.0-46.0) % RDW 16.3 H (11.5-15.5) % Carbon Dioxide 21 L (22-30) mmol/L BUN 29 H (7-17) mg/dL Creatinine 1.29 H (0.52-1.04) mg/dL Glucose 232 H (74-99) mg/dL POC Glucose (mg/dL) 244 H (75-99) mg/dL Hemoglobin A1c (4.0-6.0) % Calcium 8.3 L (8.4-10.2) mg/dL Total Protein 6.1 L (6.3-8.2) g/dL Albumin 3.2 L (3.5-5.0) g/dL Assessment and Plan Plan: -Left upper back pain, suspicious for aortic dissection. Windows Deployment Technician evaluated the patient and recommended CT angio: No evidence of aortic dissection or aneurysm. Continue with pain management -History of diabetes continue with Levemir 26 units daily and NovoLog 15 units 3 times a day with meals -Chronic kidney disease stage III with GFR between 44 and 52, patient already got IV contrast. And she is already on IV fluids normal saline at 75 mL/h. Follow-up creatinine level. DC ibuprofen. Call nephrology consult -Bilateral lower extremity swelling, Doppler negative for DVT -History of gout, continue with same and treatment -History of arterial insufficiency on Cortef 10 mg daily and 20 mg at bedtime -History of hypertension on hydralazine and Norvasc and Coreg -DVT prophylaxis, SCDs. heparin GI prophylaxis continue with Pepcid PT OT is pending
[2017-08-11] MEDS ORDERED: FUROSEMIDE 10 MG/ML 2 ML VIAL IV ONE (10:22)
--- NOTE | 2017-08-11 10:34 | P.NPCON ---
History of Present Illness - Reason for Consult chronic renal failure - History of Present Illness Reason for consultation: Chronic kidney disease History of present illness: Patient is a 81-year-old female seen in renal consultation for chronic kidney disease. Patient has chronic kidney disease stage III with baseline creatinine in the range of 1.1-1.3. Creatinine peaked at 1.4 this admission and is 1.29 today. She does have history of diabetes mellitus. Patient presented to the hospital with left-sided back pain which has been going on for quite some time. She underwent CAT scan with IV contrast which revealed no evidence of aortic dissection. Patient speaks [place] and a family member is at bedside who does the translation. She admits to good urine output. Denies any hematuria or dysuria. Denies any nausea vomiting or diarrhea. Her back pain has resolved. Denies chest pain or shortness of breath. Oral intake is good. Denies use of NSAIDs. She does not follow with a installation technician as an outpatient. Blood pressures are running in the systolic 140s to 150s. She does have some swelling in her legs. She is currently maintained on normal saline at 75 mL an hour. Vital signs are stable. General: The patient appeared well nourished and normally developed. HEENT: Head exam is unremarkable. Neck is without jugular venous distension. LUNGS: Lungs are clear to auscultation and percussion. Breath sounds decreased. HEART: Rate and Rhythm are regular. First and second heart sounds normal. No murmurs, rubs or gallops. ABDOMEN: Abdominal exam reveals normal bowel sounds. Non-tender and non- distended. No evidence of peritonitis. EXTREMITITES: 1+ edema. Past Medical History Past Medical History: COPD, Diabetes Mellitus, GERD/Reflux, Hyperlipidemia, Hypertension, Osteoarthritis (OA), Thyroid Disorder Additional Past Medical History / Comment(s): Adrenal insufficiency requiring chronic hydrocortisone replacement, menopause, prior UTI, diabetic neuropathy gout History of Any Multi-Drug Resistant Organisms: ESBL Date of last positivie culture/infection: 08-24-13 MDRO Source:: Urine Past Surgical History: Joint Replacement Additional Past Surgical History / Comment(s): Total Lt knee replace and total Rt hip replace, cataracts removed bilat, Past Anesthesia/Blood Transfusion Reactions: No Reported Reaction, Postoperative Nausea & Vomiting (PONV) Past Psychological History: No Psychological Hx Reported Smoking Status: Never smoker Past Alcohol Use History: None Reported Past Drug Use History: None Reported - Past Family History Mother Family Medical History: Diabetes Mellitus Medications and Allergies Home Medications Medication Instructions Recorded Confirmed Type Atorvastatin [Lipitor] 10 mg PO HS 08/23/13 08/09/17 History Gabapentin [Neurontin] 300 mg PO BID 08/23/13 08/09/17 History Hydrocortisone [Cortef] 10 mg PO QAM 08/23/13 08/09/17 History Hydrocortisone [Cortef] 20 mg PO HS 08/23/13 08/09/17 History Insulin Aspart [NovoLOG 15 unit SQ TID 08/23/13 08/09/17 History (formulary)] Insulin Glargine [Lantus] 26 unit SQ DAILY 08/23/13 08/09/17 History Levothyroxine Sodium [Synthroid] 137 mcg PO DAILY 08/23/13 08/09/17 History Allopurinol [Zyloprim] 100 mg PO DAILY 08/09/17 08/09/17 History Carvedilol [Coreg] 25 mg PO HS 08/09/17 08/09/17 History Furosemide [Lasix] 20 mg PO DAILY 08/09/17 08/09/17 History amLODIPine BESYLATE [Norvasc] 10 mg PO HS 08/09/17 08/09/17 History hydrALAZINE HCL [Apresoline] 25 mg PO TID 08/09/17 08/09/17 History Allergies Allergy/AdvReac Type Severity Reaction Status Date / Time No Known Allergies Allergy Verified 08/09/17 16:51 Physical Exam Vitals: Vital Signs Temp Pulse Resp BP Pulse Ox 08/11/17 08:10 97.1 F L 76 16 151/67 97 08/11/17 04:00 96.5 F L 68 16 149/69 95 08/11/17 00:00 97.5 F L 71 18 151/67 94 L 08/10/17 20:00 97.0 F L 70 16 163/71 96 08/10/17 16:30 70 16 177/73 97 08/10/17 12:00 97.9 F 78 16 166/75 98 Intake and Output 08/10/17 08/11/17 08/11/17 22:59 06:59 14:59 Intake Total 890 240 Balance 890 240 Intake: Intake, IV Titration 650 Amount Sodium Chloride 0.9% 1, 650 000 ml @ 75 mls/hr IV . [id number] [facility] Rx#:[id number] Oral 240 240 Other: Voiding Method Toilet Toilet Toilet # Voids 1 2 Weight 83.1 kg Results - Lab Results Most recent lab results Calcium 8.3 mg/dL (8.4-10.2) L 08/11/17 05:54 08/11/17 05:54 08/11/17 05:54 Assessment and Plan Plan: Assessment: 1. Mild nonoliguric acute kidney injury mostly prerenal. Improved. Creatinine peaked at 1.4 this admission and is 1.29 today. 2. Chronic kidney disease stage III with baseline creatinine in the range of 1.1-1.3. Etiology is nephrosclerosis most likely. 3. Hypertension with chronic kidney disease. Blood pressures in the systolic 140s to 150s. 4. Mild metabolic acidosis secondary to IV fluids. 5. Diabetes mellitus. 6. Hyperkalemia on admission. Potassium today was 4.7. Plan: Hep-Lock IV fluids. Check urinalysis. Continue with current antihypertensives. Discussed with cardiology regarding resuming Coreg as well. Avoid nephrotoxic agents and hypotensive episodes. Additional dose of Lasix 20 mg IV once due to edema. Repeat electrolytes in the morning. Thank you for the consultation. I will continue to follow patient with you during her hospital stay.
--- NOTE | 2017-08-11 11:28 | PN ---
PROGRESS NOTE Ms. Casarez is an 81-year-old female who presented with shoulder discomfort going to her back. She underwent a CT of the chest which did not show any evidence for aortic dissection. Her blood pressure was quite elevated and she was started on antihypertensives and her antihypertensive therapy was adjusted. While her shoulder discomfort continues, she does not have any back pain. No anterior chest wall pain. She is lying comfortably in bed. PHYSICAL EXAMINATION: On examination, she is afebrile 97.1 degrees Fahrenheit. Pulse rate 60s to 70s. Respirations normal at 14 to 16. Blood pressure 149/69 and 151/67 mmHg. Head and neck examination normal. Heart sounds are normal. Lungs are clear to auscultation. Extremities are warm. No edema. LABS: Reviewed. Hemoglobin is 11.1, electrolytes are normal. The glucose is elevated. Liver functions are normal. She is currently on antihypertensive therapy. She is on amlodipine 10 mg q.h.s. as well as carvedilol 12.5 mg twice daily. She has also been started on hydrocortisone. She has diabetes and is on losartan. IMPRESSION: 1. Uncontrolled hypertension, hypertensive urgency, hydralazine will be discontinued. Clonidine will be discontinued. Carvedilol will be changed to twice daily and losartan will be added. 2. Adult onset diabetes. 3. No evidence for aortic dissection. 4. Lipid panel. 5. Continue statin therapy. MMODL / IJN: [id number] /
[2017-08-11] MEDS: CARVEDILOL 12.5 MG TAB PO SCH ×2 (11:32→17:39)
[2017-08-11] MEDS: HEPARIN SODIUM,PORCINE 5,000 UNIT/ML 1 ML VIAL SQ SCH ×2 (11:32→20:36)
[2017-08-11] MEDS: LOSARTAN 50 MG TAB PO SCH (11:32)
[2017-08-11 11:44] LABS: Cholesterol 140 mg/dL (<200); HDL Cholesterol 26 mg/dL (40-60); LDL Cholesterol,Calculated 60 mg/dL (0-99); Triglycerides 271 mg/dL (<150)
[2017-08-11 12:20] LABS: Glucose,Whole Blood 250 mg/dL (75-99)
[2017-08-11 12:26] LABS: Appearance,Urine Clear (Clear); Bilirubin,Urine Negative (Negative); Blood,Urine Negative (Negative); Color,Urine Light Yellow; Glucose,Urine (UA) Negative (Negative); Ketones,Urine Negative (Negative); Leukocyte Esterase,Urine Negative (Negative); Nitrite,Urine Negative (Negative); Protein,Urine Trace (Negative); Specific Gravity,Urine 1.007 (1.001-1.035); Urobilinogen,Urine <2.0 mg/dL (<2.0)
[2017-08-11 17:21] LABS: Glucose,Whole Blood 142 mg/dL (75-99)
[2017-08-11] MEDS: amLODIPine 10 MG TAB PO SCH (20:36)
[2017-08-11] MEDS: ATORVASTATIN 10 MG TAB PO SCH (20:36)
[2017-08-11] MEDS: HYDROCORTISONE 20 MG TAB PO SCH (20:36)
[2017-08-11 21:20] LABS: Glucose,Whole Blood 153 mg/dL (75-99)
[2017-08-12 06:01] LABS: Glucose,Whole Blood 215 mg/dL (75-99)
[2017-08-12 06:16] VITALS: RESP 18
[2017-08-12] MEDS: LEVOTHYROXINE 137 MCG TAB PO SCH (06:30)
[2017-08-12] MEDS: CARVEDILOL 12.5 MG TAB PO SCH (06:30)
[2017-08-12 06:53] LABS: Anisocytosis Slight; Basophils # (A) 0.1 k/uL (0-0.2); Basophils % (A) 1 %; Eosinophils # (A) 0.2 k/uL (0-0.7); Eosinophils % (A) 2 %; HCT 35.3 % (34.0-46.0); HGB 11.5 gm/dL (11.4-16.0); Lymphocytes # (A) 2.5 k/uL (1.0-4.8); Lymphocytes % (A) 25 %; MCH 28.1 pg (25.0-35.0); MCHC 32.7 g/dL (31.0-37.0); Mean Platelet Volume 6.9; Monocytes # (A) 0.6 k/uL (0-1.0); Monocytes % (A) 6 %; Neutrophils # (A) 6.2 k/uL (1.3-7.7); Neutrophils % (A) 64 %; Platelet Count 261 k/uL (150-450); RDW 16.8 % (11.5-15.5); WBC 9.8 k/uL (3.8-10.6)
[2017-08-12] MEDS: INSULIN ASPART 100 UNIT/ML 1 ML 10 ML VIAL SQ SCH ×4 (06:57→12:29)
[2017-08-12 07:04] LABS: Albumin 3.6 g/dL (3.5-5.0); Bilirubin, Delta 0.2 mg/dL (0.0-0.2); Calcium 8.9 mg/dL (8.4-10.2); Potassium 4.6 mmol/L (3.5-5.1); Total Bilirubin 0.2 mg/dL (0.2-1.3); Total Protein 6.8 g/dL (6.3-8.2)
[2017-08-12] MEDS: FUROSEMIDE 20 MG TAB PO SCH (08:44)
[2017-08-12] MEDS: ALLOPURINOL 100 MG TAB PO SCH (08:44)
[2017-08-12] MEDS: FAMOTIDINE 20 MG/2 ML VIAL IV SCH (08:44)
[2017-08-12] MEDS: LOSARTAN 50 MG TAB PO SCH (08:44)
[2017-08-12] MEDS: HEPARIN SODIUM,PORCINE 5,000 UNIT/ML 1 ML VIAL SQ SCH (08:44)
[2017-08-12] MEDS: HYDROCORTISONE 10 MG TAB PO SCH (08:44)
[2017-08-12] MEDS: GABAPENTIN 300 MG CAP PO SCH (08:44)
[2017-08-12] MEDS: INSULIN DETEMIR 100 UNIT/ML 10 ML VIAL SQ SCH (08:45)
[2017-08-12] MEDS ORDERED: LOSARTAN 50 MG TAB PO ONE (10:00)
[2017-08-12] MEDS ORDERED: CARVEDILOL 12.5 MG TAB PO STA (10:04)
--- NOTE | 2017-08-12 10:39 | P.PN ---
Subjective Progress Note Date: 08/12/17 Principal diagnosis: hypertension Mrs. Casarez is a pleasant [place] female. Past medical history significant for diabetes mellitus, hypertension and dyslipidemia. If necessary consultation for symptoms of chest discomfort. The patient does not speak very good Hebrew and a staff member assisted with interpretation during the exam. The patient complains of an achy sensation in the left upper back radiates across to the right shoulder and into the left shoulder and in down into the left arm. She states this has been ongoing for a couple of months. No specific aggravating or alleviating factor. She does however states she has a history of arthritis. She states this achy sensation does feel similar to her arthritic pain. She denies associated shortness of breath, nausea, vomiting, diaphoresis, palpitations or dizziness. She follows in the office with Dr. Saha. She recently had an echocardiogram in the office 07/30/2017 which revealed normal left ventricular systolic function with ejection fraction 55% with mild mitral regurgitation noted. EKG on arrival reveals sinus mechanism with no acute ST or T wave abnormalities noted evidence of left ventricular hypertrophy.Chest x-ray reveals mild pulmonary fibrosis with no acute cardiopulmonary process. There is arthritic changes noted at the shoulder joints.Laboratory data reviewed, WBC on admission 13.7 repeat this morning 8.9, hemoglobin 11.2, platelets 247, sodium 136, potassium 5.7, creatinine on admission 1.32 repeat this morning 1.15, cardiac enzymes negative 2, proBNP 899. Recent stress test performed in the office 2014 with a Lexiscan stress test which was negative for reversible cardiac ischemia.Current cardiac medications include atorvastatin 10 mg daily, carvedilol 25 mg daily, Lasix 20 mg daily, amlodipine 10 mg daily and hydralazine 25 mg 3 times a day. 08/12/2017 Patient seen and examined this morning, blood pressure 150/80, heart rate in the 70s, 98% on room air. White blood cell count 9.8, hemoglobin 11.5, platelet count 261. Sodium 137, potassium 4.6, BUN 29, creatinine 1.2. Objective - Vital Signs Vital signs: Vital Signs Temp 98.4 F 08/12/17 04:00 Pulse 70 08/12/17 04:00 Resp 18 08/12/17 04:00 BP 151/89 08/12/17 04:00 Pulse Ox 98 08/12/17 04:00 Intake & Output 08/11/17 08/12/17 08/12/17 18:59 06:59 18:59 Intake Total 630 180 Output Total 400 Balance 230 180 Weight 86.5 kg Intake: Intake, IV Titration 150 Amount Sodium Chloride 0.9% 1, 150 000 ml @ 75 mls/hr IV . [id number] [place] Rx#:[id number] Oral 480 180 Output: Urine 400 Other: Voiding Method Toilet Toilet # Voids 1 2 - Exam Blood pressure 137/58 heart rate 76 afebrile maintaining oxygen saturation on room air GENERAL: This is a 81-year-old occasion female in no apparent distress at the time of my examination. HEENT: Head is atraumatic, normocephalic. Pupils are equal, round. Sclerae anicteric. Conjunctivae are clear. Mucous membranes of the mouth are moist. Neck is supple. There is no jugular venous distention. No carotid bruit is heard. LUNGS: Clear to auscultation no wheezes, rales or rhonchi. No chest wall tenderness is noted on palpation or with deep breathing. HEART: Regular rate and rhythm with systolic murmur at the left sternal border, no rubs or gallops. S1 and S2 heard. ABDOMEN: Soft, nontender. Bowel sounds are heard. No organomegaly noted. EXTREMITIES: No evidence of peripheral edema and no calf tenderness noted. Mild discomfort to the posterior left shoulder with movement. VASCULAR: Radial and dorsalis pedis pulses palpated, no evidence of clubbing. NEUROLOGIC: Patient is awake, alert and oriented x3. - Labs CBC & Chem 7: 08/12/17 06:19 08/12/17 06:19 Labs: Abnormal Lab Results - Last 24 Hours (Table) 08/11/17 08/11/17 08/11/17 Range/Units 05:54 11:44 12:15 RDW (11.5-15.5) % Carbon Dioxide (22-30) mmol/L BUN (7-17) mg/dL Creatinine (0.52-1.04) mg/dL Glucose (74-99) mg/dL POC Glucose (mg/dL) 250 H (75-99) mg/dL Triglycerides 271 H (<150) mg/dL HDL Cholesterol 26 L (40-60) mg/dL Urine Protein Trace H (Negative) 08/11/17 08/11/17 08/12/17 Range/Units 16:58 21:19 06:00 RDW (11.5-15.5) % Carbon Dioxide (22-30) mmol/L BUN (7-17) mg/dL Creatinine (0.52-1.04) mg/dL Glucose (74-99) mg/dL POC Glucose (mg/dL) 142 H 153 H 215 H (75-99) mg/dL Triglycerides (<150) mg/dL HDL Cholesterol (40-60) mg/dL Urine Protein (Negative) 08/12/17 08/12/17 Range/Units 06:19 06:19 RDW 16.8 H (11.5-15.5) % Carbon Dioxide 20 L (22-30) mmol/L BUN 29 H (7-17) mg/dL Creatinine 1.20 H (0.52-1.04) mg/dL Glucose 199 H (74-99) mg/dL POC Glucose (mg/dL) (75-99) mg/dL Triglycerides (<150) mg/dL HDL Cholesterol (40-60) mg/dL Urine Protein (Negative) Assessment and Plan Plan: ASSESSMENT 1. Musculoskeletal shoulder and back pain 2. accelerated hypertension 3. Dyslipidemia 4. Diabetes mellitus 5. COPD 6. Gastroesophageal reflux disease 7. Chronic kidney disease, GFR 38, stage III Plan From cardiology's perspective, patient may be able to be discharged home once cleared by primary. We will make a follow-up appointment in the office post discharge.
[2017-08-12 11:57] LABS: Glucose,Whole Blood 181 mg/dL (75-99)
[2017-08-12 16:12] VITALS: BP 154/76; PULSE 70; TEMP 97
[2017-08-12] MEDS ORDERED: CARVEDILOL 12.5 MG TAB PO SCH ×2 (17:30)
--- NOTE | 2017-08-12 22:58 | P.DS ---
Providers Date of admission: 08/10/17 08:31 Attending physician: Mirella Antonio Consults: 08/09/17 20:23 Consult Physician Routine Consulting Provider: Catrachito Saha Consult Reason/Comments: Back pain/chest pain Do you want consulting provider notified?: Yes 08/10/17 19:41 Consult Physician Routine Consulting Provider: Crystal Pak Consult Reason/Comments: chronic kidney disease Do you want consulting provider notified?: Yes Primary care physician: [facility] Course: Patient is Zambian speaking or and translation was done with the help of her daughters at bedside , her daughter Miss Pinon was on the room on the day of discharge home she speaks Iranian and helped and translation This is a pleasant 81 years old female with past medical history of COPD on no home oxygen, diabetes mellitus, GERD, hyperlipidemia, hypertension, history of arthritis, thyroid disorder, adrenal insufficiency on chronic hydrocortisone replacement therapy, history of UTI and diabetic neuropathy, and gout who presents because of left upper back pain for 2 months associated with numbness in her left upper extremity. Patient has been evaluated in the emergency room and showing her sodium 136, potassium 5.7 creatinine 1.31 down to 1.125 GFR 44, 52. Troponins are negative. Chest x-ray shows no active cardiopulmonary disease. Patient has been evaluated by hazardous materials tanker driver was suspected aortic disease for example dissecting aortic aneurysm and recommended CT angina which was negative. Patient showed interval improvement and on the day of discharge she denies to me any chest pain. No dyspnea. And stating that her back pain is completely resolved. And the numbness is also completely resolved. Most likely it was musculoskeletal 18. Chest x-ray showed arthritic changes involving the left shoulder, however there is no restriction of movement both passive and active or tenderness on shoulders on the day of discharge. Patient was cleared by hazardous materials tanker driver for discharge and asked her to follow-up as an outpatient in the office. On the presentation blood pressure was uncontrolled with her blood pressure medication was adjusted. She will be discharged on Coreg 25 mg twice a day and losartan 50 mg daily plus Lasix. On discontinue hydralazine. Patient's and daughter at bedside. Her creatinine on admission since improved from 1.4-1.2 Informed with these changes or recommendations and they verbalized understanding and acceptance. Patient was cleared by cardiology and nephrology for discharge. Problem list and management plan were discussed with the patient and she and her daughter Kathrin both verbalized understanding and acceptance and Patient is found stable and can be discharged home however she needs follow-up as an outpatient. An appointment is made with a hazardous materials tanker driver and PCP. An appointment and timing were discussed with the patient and daughters and both agreed with them. Also instructed to make an appointment and follow-up with nephrology and they agree to. Please look at today's note for discharge examination Time spent more than 35 minutes Patient Condition at Discharge: Good Plan - Discharge Summary Discharge Rx Participant: No New Discharge Prescriptions: New Acetaminophen Tab [Tylenol] 650 mg PO Q6HR PRN 3 Days tab PRN Reason: Mild Pain Or Fever > 100.5 Losartan [Cozaar] 100 mg PO DAILY #30 tab Continue Gabapentin [Neurontin] 300 mg PO BID Levothyroxine Sodium [Synthroid] 137 mcg PO DAILY Hydrocortisone [Cortef] 10 mg PO QAM Insulin Glargine [Lantus] 26 unit SQ DAILY Atorvastatin [Lipitor] 10 mg PO HS Insulin Aspart [NovoLOG (formulary)] 15 unit SQ TID Hydrocortisone [Cortef] 20 mg PO HS Furosemide [Lasix] 20 mg PO DAILY Allopurinol [Zyloprim] 100 mg PO DAILY amLODIPine BESYLATE [Norvasc] 10 mg PO HS Carvedilol [Coreg] 25 mg PO HS Discontinued hydrALAZINE HCL [Apresoline] 25 mg PO TID Discharge Medication List Atorvastatin [Lipitor] 10 mg PO HS 08/23/13 [History] Gabapentin [Neurontin] 300 mg PO BID 08/23/13 [History] Hydrocortisone [Cortef] 10 mg PO QAM 08/23/13 [History] Hydrocortisone [Cortef] 20 mg PO HS 08/23/13 [History] Insulin Aspart [NovoLOG (formulary)] 15 unit SQ TID 08/23/13 [History] Insulin Glargine [Lantus] 26 unit SQ DAILY 08/23/13 [History] Levothyroxine Sodium [Synthroid] 137 mcg PO DAILY 08/23/13 [History] Allopurinol [Zyloprim] 100 mg PO DAILY 08/09/17 [History] Carvedilol [Coreg] 25 mg PO HS 08/09/17 [History] Furosemide [Lasix] 20 mg PO DAILY 08/09/17 [History] amLODIPine BESYLATE [Norvasc] 10 mg PO HS 08/09/17 [History] Acetaminophen Tab [Tylenol] 650 mg PO Q6HR PRN 3 Days tab 08/12/17 [Rx] Losartan [Cozaar] 100 mg PO DAILY #30 tab 08/12/17 [Rx] Follow up Appointment(s)/Referral(s): Catrachito Saha MD [STAFF PHYSICIAN] - 08/27/17 3:00 pm (Saturday. Plasma Table Operator.) [facility], [NON-STAFF] - Lewis Isaac DO [Primary Care Provider] - 08/19/17 2:10 pm (Saturday.) Lloyd Fernandez DO [STAFF PHYSICIAN] - 2 Weeks (Office to call with follow up appointment. Kidney doctor.) Patient Instructions/Handouts: Chest Pain (DC), Potassium Content of Foods List (DC), DASH Eating Plan (DC), Hypertension (DC) Activity/Diet/Wound Care/Special Instructions: cardiac diet Activity as tolerated Discharge Disposition: HOME WITH HOME HEALTH SERVICES
[2017-08-13] MEDS ORDERED: LOSARTAN 50 MG TAB PO SCH (09:00)
== END 2017-08-12 17:22 | disposition home health service (06) | DRG 552 ==
LOC: EC 15:29 → 3OBS 20:22 → OBSVTOIN 08-10 08:31 → 6SEL 08-10 12:25
PROVIDERS: ADMIT Hospitalist; ATTEND Hospitalist
DX: M54.89 Other dorsalgia (principal); E27.40 Unspecified adrenocortical insufficiency; E87.2 Acidosis; N17.9 Acute kidney failure, unspecified; D72.829 Elevated white blood cell count, unspecified; E11.22 Type 2 diabetes mellitus with diabetic chronic kidney disease; E11.40 Type 2 diabetes mellitus with diabetic neuropathy, unspecified; E78.5 Hyperlipidemia, unspecified; E87.5 Hyperkalemia; M19.012 Primary osteoarthritis, left shoulder; I12.9 Hypertensive chronic kidney disease with stage 1 through stage 4 chronic kidney disease, or unspecified chronic kidney disease; I16.0 Hypertensive urgency; I34.0 Nonrheumatic mitral (valve) insufficiency; J44.9 Chronic obstructive pulmonary disease, unspecified; J84.10 Pulmonary fibrosis, unspecified; K21.9 Gastro-esophageal reflux disease without esophagitis; N18.3 Chronic kidney disease, stage 3 (moderate); M10.9 Gout, unspecified; Z96.641 Presence of right artificial hip joint; Z96.652 Presence of left artificial knee joint; Z79.4 Long term (current) use of insulin; Z79.899 Other long term (current) drug therapy; Z82.49 Family history of ischemic heart disease and other diseases of the circulatory system; Z83.3 Family history of diabetes mellitus; Z87.440 Personal history of urinary (tract) infections; Z98.42 Cataract extraction status, left eye; Z98.41 Cataract extraction status, right eye; Z79.890 Hormone replacement therapy; Z79.52 Long term (current) use of systemic steroids
CPT/HCPCS: 36415; 71046; 71275; 75635; 80048; 80061; 80076; 81003; 82550; 82553; 83036; 83880; 84484; 85025; 85610; 85730; 93005; 93970; 99284

== ENCOUNTER 2018-09-01 11:10 | Inpatient (IN) | payer MEDICARE, OTHER ==
[~2018-09-01 11:10] MED LIST: ACETAMINOPHEN TAB 500 MG TAB PO ONE; HYDROmorphone 0.5 MG/0.5 ML SYRINGE IVP PRN; LIDOCAINE 1% 20 ML VIAL (10MG/ML) FOR IV START INTRADERMA PRN; MELOXICAM 7.5 MG TAB PO ONE; ONDANSETRON 4 MG/2 ML VIAL IVP ONE; TRANEXAMIC ACID 1,000 MG in SODIUM CHLORIDE 0.9% 100 ML IVPB ONE; VANCOMYCIN 1,250 MG in SODIUM CHLORIDE 0.9% 250 ML IVPB ONE
[2018-09-01] MEDS: LACTATED RINGERS 1,000 ML IV SCH ×3 (11:43→20:22)
[2018-09-01 11:44] LABS: Glucose,Whole Blood 110 mg/dL (75-99)
[2018-09-01] MEDS ORDERED: MIDAZOLAM (PF) 2 MG/2 ML VIAL IV ONE (12:01)
[2018-09-01] MEDS ORDERED: fentaNYL (PF) 50 MCG/ML 2 ML AMP IV ONE (12:01)
[2018-09-01] MEDS ORDERED: ROPIVACAINE 246.25 MG, EPINEPHrine 0.5 MG, KETOROLAC 30 MG, cloNIDine HCL/PF 80 MCG, WA... MISCELLANE ONE ×5 (12:20)
[2018-09-01] MEDS ORDERED: fentaNYL (PF) 50 MCG/ML 2 ML AMP ONE (12:54)
[2018-09-01] MEDS ORDERED: PROPOFOL 10 MG/ML 20 ML VIAL IV ONE (12:54)
[2018-09-01] MEDS ORDERED: TRANEXAMIC ACID 1,000 MG/10 ML VIAL ONE (12:54)
[2018-09-01] MEDS ORDERED: MIDAZOLAM 2 MG/2 ML VIAL ONE (12:54)
[2018-09-01] MEDS ORDERED: [UNRECOGNIZED DRUG - OTHER] ONE (12:54)
[2018-09-01] MEDS ORDERED: SODIUM CHLORIDE 0.9% 100 ML BAG ONE (12:54)
[2018-09-01] MEDS ORDERED: ceFAZolin 3,000 MG in SODIUM CHLORIDE 0.9% IRRIGATIO 3,000 ML IRRIGATION ONE (12:59)
[2018-09-01] MEDS ORDERED: ROPIVACAINE 1,100 MG, SODIUM CHLORIDE 0.9% 500 ML 330 ML MISCELLANE PRN ×2 (14:19)
--- NOTE | 2018-09-01 14:21 | P.ANPRN ---
Procedure Note - Anesthesia - Nerve Block Performed Right Adductor Canal Infusion Time Out Performed: Yes Date of Procedure: 09/01/18 Procedure Start Time: 12:00 Procedure Stop Time: 12:10 Location of Patient Procedure: PreOp Indication: Acute Post-Operative Pain Sedation Type: Sedate with meaningful contact maintained Preparation: Sterile Prep, Sterile Dressing Position: Supine Catheter: Indwelling Needle Types: Pajunk Needle Gauge: 18 Technique: Ultrasound Injectate: 0.5% Ropivacaine (see comment for volume) (20 ml)
--- NOTE | 2018-09-01 15:03 | P.OP ---
Date of Procedure: 09/01/18 Procedure(s) Performed: PREOPERATIVE DIAGNOSIS: Right knee severe osteoarthritis with genu varum POSTOPERATIVE DIAGNOSIS: Right knee severe osteoarthritis with genu varum OPERATION: Right knee cemented total replacement arthroplasty. ANESTHESIA: Spinal ESTIMATED BLOOD LOSS: 50 ml. MARKETING PROJECT MANAGER: Lauren Zamorano PA-C (assistance with: patient positioning, retraction, exposure, hemostasis, leg positioning, implantation, irrigation, closure, dressing) COMPLICATIONS: None apparent. COMPONENTS IMPLANTED: Journey II total knee system from [employer] INDICATIONS: Mrs. Casarez is an 82-year-old lady with a history of right knee osteoarthritis. She has already undergone successful left knee replacement previously. The patient's right knee is end-stage, and conservative management has failed. The operation of knee replacement has been discussed at length in the office, as well as potential risks and complications. These are inclusive of, but not limited to: bleeding, infection, scarring, discomfort, blood vessel and nerve damage, need for further surgery, failure to relieve symptoms, persistence, recurrence, or worsening of problems, loosening, dislocation, wear, blood clot, pulmonary embolism, , gait dysfunction, stiffness, and other risks as discussed in the office. The patient elects to proceed and the consent form has been signed. PROCEDURE: The patient was taken to the operating room and positioned on the operating room table in the supine position. Anesthesia was initiated. Care was taken to make sure that all pressure points were adequately padded. The right operative lower extremity was prepped and draped in the usual aseptic fashion using ChloraPrep. Ioban drape was used for the case and the patient received intravenous antibiotics within one hour of the incision. A pneumotourniquet and leg mcbride were used for the case. The limb was exsanguinated with an Esmarch bandage and the tourniquet was inflated to 350 mmHg. Time-out was called confirming the patient's identity, side, procedure and administration of antibiotics and tranexamic acid. The incision was then created midline directly over the left knee, carried down through skin and into the subcutaneous tissues and down to fascia. Full thickness subcutaneous medial flap was developed. Medial parapatellar arthrotomy was performed and the interior of the knee was inspected. There was end-stage osteoarthritis of the knee with a mild to moderate genu varum type deformity. The fat pad was excised and proximal medial release on the tibia was completed using meticulous dissection and a curved osteotome. The anterior cruciate ligament was taken down. Note was made of significant attrition of the anterior and significant degenerative appearance of the cruciate ligaments. The exposure was excellent. The knee was flexed 90 degrees and the patella was everted. The [employer] pre- made distal cutting block was attached and pinned into position. The planned cut was analyzed visually and found to be satisfactory without the need for any adjustment. The oscillating saw was then used to make the distal femoral cut. This cut was confirmed to be flat with the flat end of an osteotome. The retractors were placed around the tibia and the tibial surface was addressed. The [employer] pre-made guide was placed onto the exposed tibial surface and pinned into position to alonso the rotational alignment. The alignment of the guide was checked for depth of plannned resection, slope, and varus valgus. Guide was confirmed to be in good position and the tibial cut was then created with protection of the posterior neurovascular structures and the collateral ligaments. The tibial cut surface was removed and sized. Femoral sizing was then accomplished using posterior referencing. Care was taken to analyze the posterior condyles for signs of deficiency or severe wear, and adjustments to the guide were made, as appropriate. 3 degree external rotation pins were placed relative to [place]'s line. The cutting jig for the femur was applied to these pins. The planned cuts were further analyzed prior to performing them with the oscillating saw. No femoral notching was produced. Bone fragments were removed and the cut surfaces were finished, as necessary, with a reciprocating saw. Spacer block technique was then used to confirm that the flexion and extension gaps were equal. Soft tissue releases and adjustment of the tibial and/or femoral cuts were made, as necessary, until the gaps were equal. This included release of the posterior cruciate ligament, which was excessively tight in this patient. The femur was then further finished for a posterior cruciate ligament substituting component. Patellar resurfacing was performed using a reamer. The size of the required patellar component was estimated and the patellar surface was then reamed down t o a residual thickness which would recreate the gakona thickness with the component. The exact placement of the patellar component was adjusted for position based on preoperative x-rays and intraoperative findings. Prior to placing trial components, anesthetic solution consisting of ropivicaine with epinephrine, ketorolac, and clonidine was injected carefully and methodically in a grid pattern using aspiration technique into the soft tissue around the knee circumferentially, starting with the deeper tissues first and progressing to fascia, and then finally the skin/subcutaneous tissue. Par ticular care was taken when injecting the posterior capsule. The trial components were inserted. The tibial tray was allowed to self center and the patella was noted to track very well. The position of the tibial component was marked and noted to be nearly exactly aligned with the pre-drilled holes from the [employer] guide. The tibia was then finished for a stemmed tibial component. Cement was mixed on the back table and applied to the final components. Trial components were removed and the cut surfaces of the bone were pulse lavaged thoroughly and dried. Cement was then applied to the tibial surface and pressurized into the surface using finger pressurization technique. The tibial component was then applied and excess cement was removed after it was impacted securely and noted to be flush with the cut surface. In similar fashion, the cement was applied to the cut femoral surface, pressurized in using finger pressurization and the component was impacted into place. Excess cement was removed. The polyethylene spacer was then implanted and locked into position. The patellar component was then applied in similar technique and a patellar clamp was used to hold the patella in place as the cement hardened. Once the cement had fully hardened, the knee was reinspected. Any other cement extrusion was removed and final kinematic testing showed range of motion from 0 to 130 degrees with excellent stability, both medially and laterally and appropriate alignment of the leg. Patellar tracking was excellent. The knee was then thoroughly pulse lavaged with normal saline. The tourniquet was deflated and hemostasis was obtained with electrocautery and IV tranexamic acid, 1 g given at the start of the operation and 1 g at the start of closure. Closure was with #2 Ethibond in the fascia/capsule and supplemented with #2 Quill, 2-0 Vicryl suture was used for the subcutaneous tissues and 3-0 Quill for the skin. Dermabond/Steri-Strips were then applied. A lightly compressive dres sing was applied using Webril and an Dennis wrap. The patient was then transferred to stretcher and taken to the recovery room in stable condition. Sponge and needle counts were correct.
[2018-09-01] MEDS ORDERED: TEMAZEPAM 15 MG CAP PO PRN (15:20)
[2018-09-01] MEDS ORDERED: HYDROmorphone 0.5 MG/0.5 ML SYRINGE IVP PRN ×3 (15:20)
[2018-09-01] MEDS ORDERED: ONDANSETRON 4 MG/2 ML VIAL IVP PRN (15:20)
[2018-09-01] MEDS ORDERED: NA PHOS,M-B/NA PHOS,DI-BA 133 ML ENEMA RECTAL PRN (15:20)
[2018-09-01] MEDS ORDERED: BISACODYL 10 MG SUPP RECTAL PRN (15:20)
[2018-09-01] MEDS ORDERED: NALOXONE 0.4 MG/ML 1 ML VIAL IV PRN (15:20)
[2018-09-01] MEDS ORDERED: MAGNESIUM HYDROXIDE 2,400 MG/10 ML CUP PO PRN (15:20)
--- NOTE | 2018-09-01 16:04 | XR ---
EXAMINATION TYPE: XR knee limited RT DATE OF EXAM: 09/01/2018 COMPARISON: NONE TECHNIQUE: Two views submitted HISTORY: Post op FINDINGS: There is a prosthetic knee in near anatomic alignment. There is soft tissue edema and emphysema. IMPRESSION: 1. Postoperative change. Appears in near-anatomic alignment
[2018-09-01 16:13] LABS: Glucose,Whole Blood 198 mg/dL (75-99)
[2018-09-01] MEDS: ceFAZolin IN SWFI 2 GM/20 ML SYRINGE IVP SCH (16:52)
[2018-09-01 16:58] VITALS: BMI 31.7
[2018-09-01] MEDS: HYDROcodone/APAP 5-325MG 1 EACH TAB PO PRN (17:08)
[2018-09-01 17:13] LABS: Glucose,Whole Blood 246 mg/dL (75-99)
[2018-09-01] MEDS: ASPIRIN 325 MG TAB PO SCH (20:22)
[2018-09-01] MEDS: SENNOSIDES-DOCUSATE SODIUM 1 EACH TAB PO SCH (20:22)
[2018-09-01 21:10] LABS: Glucose,Whole Blood 269 mg/dL (75-99)
[2018-09-02 00:14] LABS: Glucose,Whole Blood 278 mg/dL (75-99)
[2018-09-02] MEDS: amLODIPine 10 MG TAB PO SCH ×2 (00:14→20:56)
[2018-09-02] MEDS: HYDROCORTISONE 20 MG TAB PO SCH ×2 (00:14→20:56)
[2018-09-02] MEDS: CARVEDILOL 12.5 MG TAB PO SCH ×2 (00:14→20:55)
[2018-09-02] MEDS: ATORVASTATIN 10 MG TAB PO SCH ×2 (00:14→20:56)
[2018-09-02] MEDS: ceFAZolin IN SWFI 2 GM/20 ML SYRINGE IVP SCH (00:15)
[2018-09-02] MEDS: INSULIN DETEMIR (LEVEMIR) 100 UNIT/ML SYR SQ SCH ×2 (00:15→22:05)
[2018-09-02] MEDS: LACTATED RINGERS 1,000 ML IV SCH ×4 (02:59→21:09)
[2018-09-02] MEDS: LEVOTHYROXINE 137 MCG TAB PO SCH (05:29)
[2018-09-02 07:35] LABS: Glucose,Whole Blood 196 mg/dL (75-99)
[2018-09-02] MEDS: ALLOPURINOL 100 MG TAB PO SCH (07:55)
[2018-09-02] MEDS: LOSARTAN 50 MG TAB PO SCH (07:55)
[2018-09-02] MEDS: ASPIRIN 325 MG TAB PO SCH ×2 (07:55→20:55)
[2018-09-02] MEDS: CHOLECALCIFEROL 1,000 UNIT TAB PO SCH (07:55)
[2018-09-02] MEDS: MELOXICAM 7.5 MG TAB PO SCH (07:56)
[2018-09-02] MEDS: MULTIVITAMINS, THERA 1 EACH TAB PO SCH (07:57)
[2018-09-02] MEDS: INSULIN ASPART (NovoLOG) 100 UNIT/ML VIAL SQ SCH ×3 (07:57→20:55)
[2018-09-02] MEDS: HYDROCORTISONE 10 MG TAB PO SCH (07:57)
[2018-09-02 07:58] LABS: Basophils % (A) 0 %; Eosinophils % (A) 0 %; HCT 36.8 % (34.0-46.0); Lymphocytes # (A) 1.3 k/uL (1.0-4.8); Lymphocytes % (A) 7 %; MCH 31.5 pg (25.0-35.0); MCHC 32.5 g/dL (31.0-37.0); MCV 96.8 fL (80.0-100.0); Mean Platelet Volume 7.1; Monocytes # (A) 0.8 k/uL (0-1.0); Monocytes % (A) 4 %; Neutrophils # (A) 17.6 k/uL (1.3-7.7); Neutrophils % (A) 88 %; Platelet Count 260 k/uL (150-450); RDW 14.9 % (11.5-15.5); WBC 19.9 k/uL (3.8-10.6)
--- NOTE | 2018-09-02 09:51 | P.PN ---
Subjective Progress Note Date: 09/02/18 Principal diagnosis: Degenerative arthritis right knee. Status post total right knee arthroplasty. This is an 82-year-old female who is status post total right knee arthroplasty. She is doing well from an orthopedic standpoint. She has no new complaints or concerns today. She did require some assistance with ambulation today. Vital signs are stable. Objective - Vital Signs Vital signs: Vital Signs Temp 98.2 F 09/02/18 07:07 Pulse 76 09/02/18 07:07 Resp 16 09/02/18 07:07 BP 130/70 09/02/18 07:07 Pulse Ox 97 09/02/18 07:07 Intake & Output 09/01/18 09/02/18 09/02/18 18:59 06:59 18:59 Intake Total 1411 1150 420 Output Total 50 Balance 1361 1150 420 Intake: IV 1051 Intake, IV Titration 900 Amount Lactated Ringers 1,000 ml 900 @ 100 mls/hr IV .Q10H [place] Rx#:[id number] Oral 360 250 420 Output: Estimated Blood Loss 50 Other: Voiding Method Toilet # Voids 1 - Exam This is a pleasant 82-year-old female in no acute distress. She is alert and oriented at this time. Exam of the right knee reveals that her dressing is clean, dry and intact. She has full foot and ankle motion without difficulty or pain. Neurovascular status to the lower extremity is intact. - Labs CBC & Chem 7: 09/02/18 07:37 Labs: Abnormal Lab Results - Last 24 Hours (Table) 09/01/18 09/01/18 09/01/18 Range/Units 11:42 16:10 17:12 WBC (3.8-10.6) k/uL Neutrophils # (1.3-7.7) k/uL POC Glucose (mg/dL) 110 H 198 H 246 H (75-99) mg/dL 09/01/18 09/02/18 09/02/18 Range/Units 21:08 00:13 07:24 WBC (3.8-10.6) k/uL Neutrophils # (1.3-7.7) k/uL POC Glucose (mg/dL) 269 H 278 H 196 H (75-99) mg/dL 09/02/18 Range/Units 07:37 WBC 19.9 H (3.8-10.6) k/uL Neutrophils # 17.6 H (1.3-7.7) k/uL POC Glucose (mg/dL) (75-99) mg/dL Assessment and Plan (1) Diabetes Current Visit: Yes Status: Acute Code(s): E11.9 - TYPE 2 DIABETES MELLITUS WITHOUT COMPLICATIONS SNOMED Code(s): 19790160 (2) Diabetic neuropathy Current Visit: Yes Status: Acute Code(s): E11.40 - TYPE 2 DIABETES MELLITUS WITH DIABETIC NEUROPATHY, UNSP SNOMED Code(s): 532004323 (3) Status post total right knee replacement Current Visit: Yes Status: Acute Code(s): Z96.651 - PRESENCE OF RIGHT ARTIFICIAL KNEE JOINT SNOMED Code(s): 5740454629824 (4) Moderate coronary artery risk chest pain Current Visit: No Status: Acute Code(s): R07.9 - CHEST PAIN, UNSPECIFIED SNOMED Code(s): 89533527 Plan: The clinical findings are discussed with the patient. We are planning discharge to home tomorrow if cleared medically. Continue current care.
[2018-09-02 11:50] LABS: Glucose,Whole Blood 193 mg/dL (75-99)
--- NOTE | 2018-09-02 11:51 | P.PN ---
Progress Note - Text Progress Note Date: 09/02/18 Postoperative day # 1 status post right total knee arthroplasty, under spinal anesthesia, and adductor canal catheter placed for postoperative analgesia, currently at ropivacaine 0.2% 8 mL per hour and continuous infusion, visual analogue scale is 5-6/10. Assessment and plan= Acute postoperative pain, adductor canal catheter for pain control, encouraged patient to use oral breakthrough pain medication. Note= patient was seen today at 6:45 AM 09/02/2018
[2018-09-02] MEDS: HYDROcodone/APAP 5-325MG 1 EACH TAB PO PRN ×2 (13:24→20:54)
--- NOTE | 2018-09-02 15:32 | P.CONS ---
History of Present Illness - Reason for Consult Leukocytosis - History of Present Illness Patient is a pleasant 8-year-old female came in for right total knee arthroplasty is excess renin surgery patient denied any fever chills nausea vomiting abdominal pain. Patient does have leukocytosis but doesn't have any Dysuria no evidence of infection at this time. Patient does have multiple other the chronic medical problems including chronic disease stage II this time creatinine 1.1 is on Lasix which will be continued I do not have any basic metabolic profile available. Patient probably will be discharged today and is medically stable to be discharged. If patient is taking back I'll obtain a basic metabolic profile tomorrow morning patient was resumed on her antiemesis including Lasix was with fairly controlled the blood pressure and vital signs. Review of Systems REVIEW OF SYSTEMS: CONSTITUTIONAL: No fever, no malaise, no fatigue. HEENT: No recent visual problems or hearing problems. Denied any sore throat. CARDIOVASCULAR: No chest pain, orthopnea, PND, no palpitations, no syncope. PULMONARY: No shortness of breath, no cough, no hemoptysis. GASTROINTESTINAL: No diarrhea, no nausea, no vomiting, no abdominal pain. NEUROLOGICAL: No headaches, no weakness, no numbness. HEMATOLOGICAL: Denies any bleeding or petechiae. GENITOURINARY: Denies any burning micturition, frequency, or urgency. MUSCULOSKELETAL/RHEUMATOLOGICAL: Denies any joint pain, swelling, or any muscle pain. ENDOCRINE: Denies any polyuria or polydipsia. The rest of the 14-point review of systems is negative. Past Medical History Past Medical History: COPD, Diabetes Mellitus, GERD/Reflux, Hyperlipidemia, Hypertension, Osteoarthritis (OA), Thyroid Disorder Additional Past Medical History / Comment(s): Adrenal insufficiency requiring chronic hydrocortisone replacement, menopause, prior UTI, diabetic neuropathy go ut History of Any Multi-Drug Resistant Organisms: ESBL Year Discovered:: 08-24-13 MDRO Source:: Urine Past Surgical History: Joint Replacement Additional Past Surgical History / Comment(s): Total Lt knee replace and total Rt hip replace, cataracts removed bilat, Past Anesthesia/Blood Transfusion Reactions: Previous Problems w/ Anesthesia, Postoperative Nausea & Vomiting (PONV) Past Psychological History: No Psychological Hx Reported Additional Psychological History / Comment(s): Patient does not have any O2 requirements at home she lives with family members at daughter there is no assistive devices. patient's full code there is no CPAP needs no assistive devices for ambulation Smoking Status: Never smoker Past Alcohol Use History: None Reported Past Drug Use History: None Reported - Past Family History Mother Family Medical History: Diabetes Mellitus Medications and Allergies Home Medications Medication Instructions Recorded Confirmed Type Atorvastatin [Lipitor] 10 mg PO HS 08/23/13 09/01/18 History Hydrocortisone [Cortef] 10 mg PO QAM 08/23/13 09/01/18 History Hydrocortisone [Cortef] 20 mg PO HS 08/23/13 09/01/18 History INSULIN ASPART (NovoLOG) [NovoLOG 15 unit SQ TID 08/23/13 09/01/18 History (formulary)] Insulin Glargine [Lantus] 26 unit SQ HS 08/23/13 09/01/18 History Levothyroxine Sodium [Synthroid] 137 mcg PO DAILY 08/23/13 09/01/18 History Allopurinol [Zyloprim] 100 mg PO DAILY 08/09/17 09/01/18 History Carvedilol [Coreg] 25 mg PO HS 08/09/17 09/01/18 History Furosemide [Lasix] 20 mg PO DAILY 08/09/17 09/01/18 History amLODIPine BESYLATE [Norvasc] 10 mg PO HS 08/09/17 09/01/18 History Acetaminophen Tab [Tylenol] 650 mg PO Q6HR PRN 3 Days tab 08/12/17 09/01/18 Rx Losartan [Cozaar] 100 mg PO DAILY #30 tab 08/12/17 09/01/18 Rx Cholecalciferol (Vitamin D3) 2,000 unit PO DAILY 08/28/18 09/01/18 History [Vitamin D3] Ciprofloxacin HCl [Cipro] 500 mg PO Q12HR 08/28/18 09/01/18 History Denosumab [Prolia] 60 mg SQ Q6M 08/28/18 09/01/18 History Multivitamins, Thera [Multivitamin 1 tab PO DAILY 08/28/18 09/01/18 History (formulary)] Mupirocin 2% Oint [Bactroban 2% 1 applic NASAL DAILY 08/28/18 09/01/18 History Oint] Pioglitazone HCl [Actos] 15 mg PO DAILY 08/28/18 09/01/18 History Aspirin 325 mg PO BID #1 tab 07/15/19 Rx HYDROcodone/APAP 5-325MG [[place] 1 - 2 each PO Q4-6H PRN #50 tab 09/01/18 Rx 5-325] Sennosides-Docusate Sodium 1 tab PO BID #60 tablet 09/01/18 Rx [Senokot-S] Allergies Allergy/AdvReac Type Severity Reaction Status Date / Time No Known Allergies Allergy Verified 08/28/18 14:53 Physical Exam Vitals: Vital Signs Temp Pulse Pulse Resp BP BP Pulse Ox 09/02/18 14:31 98.4 F 81 16 150/70 97 09/02/18 07:07 98.2 F 76 16 130/70 97 09/02/18 03:07 16 09/02/18 01:11 97.8 F 73 18 119/69 95 09/02/18 00:20 84 131/68 09/02/18 00:15 15 09/01/18 21:43 75 138/80 09/01/18 19:14 97.6 F 70 18 127/75 94 L 09/01/18 18:43 80 154/77 09/01/18 18:13 89 152/77 09/01/18 17:58 83 148/75 09/01/18 17:44 81 149/66 09/01/18 17:28 81 148/69 09/01/18 17:13 75 18 138/68 97 09/01/18 16:58 81 18 151/73 95 09/01/18 16:43 97.7 F 82 18 146/70 93 L 09/01/18 16:03 77 16 153/69 94 L 09/01/18 15:45 76 16 151/66 93 L 09/01/18 15:30 76 16 148/65 94 L Intake and Output 09/02/18 09/02/18 09/02/18 06:59 14:59 22:59 Intake Total 900 657 Balance 900 657 Intake: Intake, IV Titration 900 Amount Lactated Ringers 1,000 ml 900 @ 100 mls/hr IV .Q10H ON LICENSE OF [facility] Rx#:[id number] Oral 657 Other: # Voids 1 2 PHYSICAL EXAMINATION: GENERAL: The patient is alert and oriented x3, not in any acute distress. Well developed, well nourished. HEENT: Pupils are round and equally reacting to light. EOMI. No scleral icterus. No conjunctival pallor. Normocephalic, atraumatic. No pharyngeal erythema. No thyromegaly. CARDIOVASCULAR: S1 and S2 present. No murmurs, rubs, or gallops. PULMONARY: Chest is clear to auscultation, no wheezing or crackles. ABDOMEN: Soft, nontender, nondistended, normoactive bowel sounds. No palpable organomegaly. MUSCULOSKELETAL: No joint swelling or deformity. EXTREMITIES: No cyanosis, clubbing, or pedal edema. Right knee has a postsurg ical plaquing without any drains. NEUROLOGICAL: Gross neurological examination did not reveal any focal deficits. SKIN: No rashes. Results CBC & Chem 7: 09/02/18 07:37 Labs: Abnormal Lab Results - Last 24 Hours (Table) 09/01/18 09/01/18 09/01/18 Range/Units 16:10 17:12 21:08 WBC (3.8-10.6) k/uL Neutrophils # (1.3-7.7) k/uL POC Glucose (mg/dL) 198 H 246 H 269 H (75-99) mg/dL 09/02/18 09/02/18 09/02/18 Range/Units 00:13 07:24 07:37 WBC 19.9 H (3.8-10.6) k/uL Neutrophils # 17.6 H (1.3-7.7) k/uL POC Glucose (mg/dL) 278 H 196 H (75-99) mg/dL 09/02/18 Range/Units 11:38 WBC (3.8-10.6) k/uL Neutrophils # (1.3-7.7) k/uL POC Glucose (mg/dL) 193 H (75-99) mg/dL Assessment and Plan Plan: -Hypertension patient was resumed on all her home medications with out hypotension -Leukocytosis: Reactive secondary to surgery -COPD without any acute acceleration -hyperlipidemia -Hypertension -Knee arthroplasty pain management due to prophylaxis per memory service Line-type 2 diabetes mellitus patient was resumed on home regimen monitor blood sugars
[2018-09-02 15:56] LABS: Glucose,Whole Blood 293 mg/dL (75-99)
[2018-09-02 20:43] LABS: Glucose,Whole Blood 220 mg/dL (75-99)
[2018-09-02] MEDS: SENNOSIDES-DOCUSATE SODIUM 1 EACH TAB PO SCH (20:55)
[2018-09-03 02:20] VITALS: RESP 18
[2018-09-03] MEDS: LEVOTHYROXINE 137 MCG TAB PO SCH (05:26)
[2018-09-03 07:11] LABS: Glucose,Whole Blood 109 mg/dL (75-99)
[2018-09-03 07:48] VITALS: BP 171/77; PULSE 68; TEMP 97.8
[2018-09-03] MEDS: LACTATED RINGERS 1,000 ML IV SCH (08:31)
[2018-09-03 08:39] LABS: Calcium 9.1 mg/dL (8.4-10.2); Potassium 4.8 mmol/L (3.5-5.1)
[2018-09-03] MEDS: HYDROCORTISONE 10 MG TAB PO SCH (08:45)
[2018-09-03] MEDS: MELOXICAM 7.5 MG TAB PO SCH (08:45)
[2018-09-03] MEDS: MULTIVITAMINS, THERA 1 EACH TAB PO SCH (08:45)
[2018-09-03] MEDS: LOSARTAN 50 MG TAB PO SCH (08:45)
[2018-09-03] MEDS: INSULIN ASPART (NovoLOG) 100 UNIT/ML VIAL SQ SCH (08:46)
[2018-09-03] MEDS: ASPIRIN 325 MG TAB PO SCH (08:46)
[2018-09-03] MEDS: CHOLECALCIFEROL 1,000 UNIT TAB PO SCH (08:46)
[2018-09-03] MEDS: ALLOPURINOL 100 MG TAB PO SCH (08:46)
--- NOTE | 2018-09-03 10:24 | P.DS ---
Providers Date of admission: 09/03/18 08:38 Expected date of discharge: 09/03/18 Attending physician: Cortez Christie Consults: 09/01/18 17:55 Consult Physician Routine Consulting Provider: Mirella Antonio Consult Reason/Comments: Medical management Do you want consulting provider notified?: Yes Primary care physician: Lewis Isaac - Discharge Diagnosis(es) (1) Diabetes Current Visit: Yes Status: Acute (2) Diabetic neuropathy Current Visit: Yes Status: Acute (3) Status post total right knee replacement Current Visit: Yes Status: Acute (4) Moderate coronary artery risk chest pain Current Visit: No Status: Acute Hospital Course: This is an 82-year-old female who was last seen with complaint of continued right knee pain. The patient has a known history of degenerative arthritis of the right knee and presents to discuss surgical options. After discussion and consideration the patient elects to proceed with total right knee arthroplasty. The patient is seen preoperatively by her primary care physician and cleared for surgery. The patient is admitted to [facility] for total right knee arthroplasty. The procedures performed without complication or sequelae. Patient is doing well postoperatively. Vital signs are stable at discharge. Labs are stable at discharge. the patient is ambulating well with walker with minimal assistance. The patient is discharged to home on postop day #2 pending medical clearance. Please see orders and refer to the [facility] rec for accurate list of medications. Plan - Discharge Summary Discharge Rx Participant: Yes New Discharge Prescriptions: New Aspirin 325 mg PO BID #1 tab HYDROcodone/APAP 5-325MG [[place] 5-325] 1 - 2 each PO Q4-6H PRN #50 tab PRN Reason: Pain Sennosides-Docusate Sodium [Senokot-S] 1 tab PO BID #60 tablet No Action Levothyroxine Sodium [Synthroid] 137 mcg PO DAILY Hydrocortisone [Cortef] 10 mg PO QAM Insulin Glargine [Lantus] 26 unit SQ HS Atorvastatin [Lipitor] 10 mg PO HS INSULIN ASPART (NovoLOG) [NovoLOG (formulary)] 15 unit SQ TID Hydrocortisone [Cortef] 20 mg PO HS Furosemide [Lasix] 20 mg PO DAILY Allopurinol [Zyloprim] 100 mg PO DAILY amLODIPine BESYLATE [Norvasc] 10 mg PO HS Carvedilol [Coreg] 25 mg PO HS Acetaminophen Tab [Tylenol] 650 mg PO Q6HR PRN 3 Days tab PRN Reason: Mild Pain Or Fever > 100.5 Losartan [Cozaar] 100 mg PO DAILY #30 tab Denosumab [Prolia] 60 mg SQ Q180D Pioglitazone HCl [Actos] 15 mg PO DAILY Multivitamins, Thera [Multivitamin (formulary)] 1 tab PO DAILY Ciprofloxacin HCl [Cipro] 500 mg PO Q12HR Mupirocin 2% Oint [Bactroban 2% Oint] 1 applic NASAL DAILY Cholecalciferol (Vitamin D3) [Vitamin D3] 2,000 unit PO DAILY Discharge Medication List Atorvastatin [Lipitor] 10 mg PO HS 08/23/13 [History] Hydrocortisone [Cortef] 10 mg PO QAM 08/23/13 [History] Hydrocortisone [Cortef] 20 mg PO HS 08/23/13 [History] INSULIN ASPART (NovoLOG) [NovoLOG (formulary)] 15 unit SQ TID 08/23/13 [History] Insulin Glargine [Lantus] 26 unit SQ HS 08/23/13 [History] Levothyroxine Sodium [Synthroid] 137 mcg PO DAILY 08/23/13 [History] Allopurinol [Zyloprim] 100 mg PO DAILY 08/09/17 [History] Carvedilol [Coreg] 25 mg PO HS 08/09/17 [History] Furosemide [Lasix] 20 mg PO DAILY 08/09/17 [History] amLODIPine BESYLATE [Norvasc] 10 mg PO HS 08/09/17 [History] Acetaminophen Tab [Tylenol] 650 mg PO Q6HR PRN 3 Days tab 08/12/17 [Rx] Losartan [Cozaar] 100 mg PO DAILY #30 tab 08/12/17 [Rx] Cholecalciferol (Vitamin D3) [Vitamin D3] 2,000 unit PO DAILY 08/28/18 [History] Ciprofloxacin HCl [Cipro] 500 mg PO Q12HR 08/28/18 [History] Denosumab [Prolia] 60 mg SQ Q180D 08/28/18 [History] Multivitamins, Thera [Multivitamin (formulary)] 1 tab PO DAILY 08/28/18 [History] Mupirocin 2% Oint [Bactroban 2% Oint] 1 applic NASAL DAILY 08/28/18 [History] Pioglitazone HCl [Actos] 15 mg PO DAILY 08/28/18 [History] Aspirin 325 mg PO BID #1 tab 09/01/18 [Rx] HYDROcodone/APAP 5-325MG [[place] 5-325] 1 - 2 each PO Q4-6H PRN #50 tab 09/01/18 [Rx] Sennosides-Docusate Sodium [Senokot-S] 1 tab PO BID #60 tablet 09/01/18 [Rx] Follow up Appointment(s)/Referral(s): Lauren Zamorano PAC [PHYSICIAN [facility]OR[facility]] - 09/17/18 2:45 pm [facility], [NON-STAFF] - Lewis Isaac DO [Primary Care Provider] - 09/09/18 2:00 pm Activity/Diet/Wound Care/Special Instructions: May bear wt as tolerated w walker. May shower if no drainage from incision. Discharge Disposition: HOME WITH HOME HEALTH SERVICES
[2018-09-03 11:29] LABS: Glucose,Whole Blood 187 mg/dL (75-99)
[2018-09-03] MEDS: HYDROcodone/APAP 5-325MG 1 EACH TAB PO PRN (11:56)
--- NOTE | 2018-09-03 14:27 | P.PN ---
Subjective No overnight events patient is clinically doing well is being discharged from orthopedic perspective and medical patient is medically stable to be discharged discharge medications were reviewed. Patient's creatinine is 1.1 Constitutional: Denied any fatigue denied any fever. Cardio vascular: denied any chest pain, palpitations Gastrointestinal denied any nausea vomiting Pulmonary: Denied any shortness of breath cough Neurologic denied any new focal deficits All inpatient medications were reviewed and appropriate changes in these medications as dictated in the interval history and assessment and plan. Objective - Vital Signs Vital signs: Vital Signs Temp 97.8 F 09/03/18 07:03 Pulse 68 09/03/18 07:03 Resp 18 09/03/18 03:53 BP 171/77 09/03/18 07:03 Pulse Ox 98 09/03/18 07:03 Intake & Output 09/02/18 09/03/18 09/03/18 18:59 06:59 18:59 Intake Total 957 200 300 Balance 957 200 300 Intake: Oral 957 200 300 Other: Voiding Method Toilet Toilet # Voids 1 1 3 - Exam PHYSICAL EXAMINATION: GENERAL: The patient is alert and oriented x3, not in any acute distress. Well developed, well nourished. HEENT: Pupils are round and equally reacting to light. EOMI. No scleral icterus. No conjunctival pallor. Normocephalic, atraumatic. No pharyngeal erythema. No thyromegaly. CARDIOVASCULAR: S1 and S2 present. No murmurs, rubs, or gallops. PULMONARY: Chest is clear to auscultation, no wheezing or crackles. ABDOMEN: Soft, nontender, nondistended, normoactive bowel sounds. No palpable organomegaly. MUSCULOSKELETAL: No joint swelling or deformity. EXTREMITIES: No cyanosis, clubbing, or pedal edema. Right knee has a postsurgical packing without any drains. NEUROLOGICAL: Gross neurological examination did not reveal any focal deficits. SKIN: No rashes. - Labs CBC & Chem 7: 09/02/18 07:37 09/03/18 07:46 Labs: Abnormal Lab Results - Last 24 Hours (Table) 09/02/18 09/02/18 09/03/18 Range/Units 15:45 20:32 07:00 Chloride (98-107) mmol/L BUN (7-17) mg/dL Creatinine (0.52-1.04) mg/dL Glucose (74-99) mg/dL POC Glucose (mg/dL) 293 H 220 H 109 H (75-99) mg/dL 09/03/18 09/03/18 Range/Units 07:46 11:18 Chloride 109 H (98-107) mmol/L BUN 36 H (7-17) mg/dL Creatinine 1.14 H (0.52-1.04) mg/dL Glucose 162 H (74-99) mg/dL POC Glucose (mg/dL) 187 H (75-99) mg/dL Assessment and Plan Plan: -Hypertension patient was resumed on all her home medications with out hypotension -Leukocytosis: Reactive secondary to surgery -COPD without any acute acceleration -hyperlipidemia -Hypertension -Knee arthroplasty pain management due to prophylaxis per memory service Line-type 2 diabetes mellitus patient was resumed on home regimen and blood sugars are fairly well controlled titration can be done as an outpatient
== END 2018-09-03 14:20 | disposition home health service (06) | DRG 470 ==
LOC: OR 11:10 → EDSTATUS 12:30 → 4SSUR 15:46 → OR 09-03 08:38 → 4SSUR 09-03 08:38
PROVIDERS: ADMIT Orthopaedic Surgery; ATTEND Orthopaedic Surgery
PROC: 0SRC069 Replacement of Right Knee Joint with Oxidized Zirconium on Polyethylene Synthetic Substitute, Cemented, Open Approach (ICD-10-PCS; principal; 2018-09-03)
DX: M17.11 Unilateral primary osteoarthritis, right knee (principal); E27.40 Unspecified adrenocortical insufficiency; E11.40 Type 2 diabetes mellitus with diabetic neuropathy, unspecified; J44.9 Chronic obstructive pulmonary disease, unspecified; M21.161 Varus deformity, not elsewhere classified, right knee; E03.9 Hypothyroidism, unspecified; M10.9 Gout, unspecified; I10 Essential (primary) hypertension; E78.5 Hyperlipidemia, unspecified; D72.829 Elevated white blood cell count, unspecified; K21.9 Gastro-esophageal reflux disease without esophagitis; G89.18 Other acute postprocedural pain; Z79.4 Long term (current) use of insulin; Z79.890 Hormone replacement therapy; Z79.82 Long term (current) use of aspirin; Z79.52 Long term (current) use of systemic steroids; Z79.899 Other long term (current) drug therapy; Z86.19 Personal history of other infectious and parasitic diseases; Z96.653 Presence of artificial knee joint, bilateral; Z96.641 Presence of right artificial hip joint; Z87.440 Personal history of urinary (tract) infections; Z98.42 Cataract extraction status, left eye; Z98.41 Cataract extraction status, right eye; Z83.3 Family history of diabetes mellitus
CPT/HCPCS: 80048; 85025; 88300

== ENCOUNTER 2020-02-14 13:43 | Inpatient (IN) | payer MEDICARE, OTHER ==
--- NOTE | 2020-02-14 14:24 | ED ---
General Adult HPI - General Chief complaint: Shortness of Breath Stated complaint: SOB Time Seen by Provider: 02/14/20 13:52 Source: family Mode of arrival: EMS Limitations: altered mental status, physical limitation - History of Present Illness Initial comments: Dictation was produced using [employer] dictation software. please excuse any grammatical, word or spelling errors. This patient was cared for during a federal and state declared state of emergency secondary to Covid 19 Chief Complaint: 84-year-old female presents with shortness of breath cough and fever 2 days. History of Present Illness: His 84-year-old female she was accompanied by her daughter. Patient has multiple comorbidities. She has history of heart failure, COPD and diabetes. Patient was recently admitted for 7 days at [facility] for similar complaint. Daughter at bedside reports that her shortness of breath was secondary to CHF exacerbation. Patient states that since last week her swelling has improved. Over the last couple days she's developed a productive cough. Daughter states that she's not sure if she was tested for coronavirus easily. Patient does have mild fevers at home. Denies a sore throat runny nose. The ROS documented in this emergency department record has been reviewed and confirmed by me. Those systems with pertinent positive or negative responses have been documented in the HPI. All other systems are other negative and/or noncontributory. PHYSICAL EXAM: General Impression: Alert and oriented x3, mildly dyspneic HEENT: Normocephalic atraumatic, extra-ocular movements intact, pupils equal and reactive to light bilaterally, mucous membranes moist. Cardiovascular: Heart regular rate and rhythm Chest: Able to complete full sentences, no retractions, no tachypnea Abdomen: abdomen soft, non-tender, non-distended, no organomegaly Musculoskeletal: Pulses present and equal in all extremities, 2+ pitting edema to bilateral lower extremities Motor: no focal deficits noted Neurological: CN II-XII grossly intact, no focal motor or sensory deficits noted Skin: Intact with no visualized rashes Psych: Normal affect and mood ED course: 84-year-old female presents emergency department for chief complaint of dyspnea. She's recently admitted and [facility] for CHF exacerbation. Vital signs upon arrival shows temperature of 99.3, 94% on 2 L nasal cannula. Patient's oxygen drops to the low 90s and upper 80s without any oxygen. Laboratory evaluation obtained. No leukocytosis. Coag panel is unremarkable. Metabolic panel shows sodium 131 glucose 57. Patient given dextrose. Renal markers repeated be elevated slightly from recent treatment for heart failure exacerbation. She has elevated LDH and CRP coronavirus is positive. Patient given dextrose with improvement of blood sugars. Chest x-ray shows CHF and pulmonary infiltrates concerning for infectious process. Slightly infiltrates secondary to Clomid 19. Patient given 6 mg of Decadron. Patient reevaluated at bedside and still has mild respiratory distress. Although not significantly hypoxic given her age, comorbidities and work of breathing we will have her admitted with consultation pulmonology. Case discussed with Dr. Che who is willing to accept patients care. Pulmonology will be on consult. EKG interpretation: Ventricular rate 65, normal sinus rhythm,. Interval 150, QRS 120, QTC 4:30. No VA prolongation, no QTC prolongation, no ST or T-wave changes noted. EKG compared to August 09 2017 showing no changes. Overall, this EKG is unremarkable - Related Data Home Medications Medication Instructions Recorded Confirmed Hydrocortisone [Cortef] 10 mg PO DAILY 08/23/13 02/14/20 Hydrocortisone [Cortef] 20 mg PO HS 08/23/13 02/14/20 Levothyroxine Sodium [Synthroid] 137 mcg PO DAILY 08/23/13 02/14/20 amLODIPine BESYLATE [Norvasc] 10 mg PO HS 08/09/17 02/14/20 Acetaminophen Tab [Tylenol] 650 mg PO Q6H PRN 02/14/20 02/14/20 Allopurinol [Zyloprim] 300 mg PO DAILY 02/14/20 02/14/20 Aspirin EC [Ecotrin Low Dose] 81 mg PO DAILY 02/14/20 02/14/20 Carvedilol [Coreg] 25 mg PO BID 02/14/20 02/14/20 Furosemide [Lasix] 40 mg PO DAILY 02/14/20 02/14/20 Insulin Glargine,Hum.rec.anlog 30 unit SQ HS 02/14/20 02/14/20 [Lantus Solostar] Insulin Lispro [humaLOG Kwikpen] 28 unit SQ AC-TID 02/14/20 02/14/20 Rosuvastatin Calcium [Crestor] 5 mg PO DAILY 02/14/20 02/14/20 hydrALAZINE HCL [Apresoline] 25 mg PO TID 02/14/20 02/14/20 Allergies Allergy/AdvReac Type Severity Reaction Status Date / Time No Known Allergies Allergy Verified 02/14/20 15:17 Review of Systems ROS Statement: Those systems with pertinent positive or pertinent negative responses have been documented in the HPI. ROS Other: All systems not noted in ROS Statement are negative. Past Medical History Past Medical History: Heart Failure, COPD, Diabetes Mellitus, GERD/Reflux, Hyperlipidemia, Hypertension, Osteoarthritis (OA), Thyroid Disorder Additional Past Medical History / Comment(s): Adrenal insufficiency requiring chronic hydrocortisone replacement, menopause, prior UTI, diabetic neuropathy gout History of Any Multi-Drug Resistant Organisms: ESBL Date of last positivie culture/infection: 08-24-13 MDRO Source:: Urine Past Surgical History: Joint Replacement Additional Past Surgical History / Comment(s): Total Lt knee replace and total Rt hip replace, cataracts removed bilat, Past Anesthesia/Blood Transfusion Reactions: Previous Problems w/ Anesthesia, Postoperative Nausea & Vomiting (PONV) Past Psychological History: No Psychological Hx Reported Smoking Status: Never smoker Past Alcohol Use History: None Reported Past Drug Use History: None Reported - Past Family History Mother Family Medical History: Diabetes Mellitus General Exam Limitations: altered mental status, physical limitation Course Vital Signs 02/14/20 02/14/20 02/14/20 13:50 13:57 14:00 Temperature 99.3 F Pulse Rate 66 Respiratory 24 28 H Rate Blood Pressure 151/68 O2 Sat by Pulse 90 L 94 L Oximetry Medical Decision Making - Lab Data Result diagrams: 02/14/20 14:22 02/14/20 14:22 Lab Results 02/14/20 02/14/20 02/14/20 Range/Units 14:22 14:22 14:22 WBC 10.4 (3.8-10.6) k/uL RBC 3.44 L (3.80-5.40) m/uL Hgb 11.2 L (11.4-16.0) gm/dL Hct 33.2 L (34.0-46.0) % MCV 96.4 (80.0-100.0) fL MCH 32.5 (25.0-35.0) pg MCHC 33.7 (31.0-37.0) g/dL RDW 14.6 (11.5-15.5) % Plt Count 212 (150-450) k/uL MPV 7.6 Neutrophils % 83 % Lymphocytes % 7 % Monocytes % 6 % Eosinophils % 1 % Basophils % 2 % Neutrophils # 8.6 H (1.3-7.7) k/uL Lymphocytes # 0.8 L (1.0-4.8) k/uL Monocytes # 0.6 (0-1.0) k/uL Eosinophils # 0.1 (0-0.7) k/uL Basophils # 0.2 (0-0.2) k/uL PT 10.4 (9.0-12.0) sec INR 1.0 (<1.2) APTT 27.8 (22.0-30.0) sec Sodium 131 L (137-145) mmol/L Potassium 5.2 H (3.5-5.1) mmol/L Chloride 100 (98-107) mmol/L Carbon Dioxide 22 (22-30) mmol/L Anion Gap 9 mmol/L BUN 61 H (7-17) mg/dL Creatinine 2.20 H (0.52-1.04) mg/dL Est GFR (CKD-EPI)AfAm 23 (>60 ml/min/1.73 sqM) Est GFR (CKD-EPI)NonAf 20 (>60 ml/min/1.73 sqM) Glucose 57 L (74-99) mg/dL POC Glucose (mg/dL) (75-99) mg/dL POC Glu [employer] Sales Agent ID Plasma Lactic Acid Janak (0.7-2.0) mmol/L Calcium 8.8 (8.4-10.2) mg/dL Magnesium 2.0 (1.6-2.3) mg/dL Total Bilirubin 0.5 (0.2-1.3) mg/dL AST 42 H (14-36) U/L ALT 29 (4-34) U/L Alkaline Phosphatase 77 (38-126) U/L Lactate Dehydrogenase 1000 H (313-618) U/L C-Reactive Protein 79.0 H (<10.0) mg/L NT-Pro-B Natriuret Pep pg/mL Total Protein 7.3 (6.3-8.2) g/dL Albumin 4.0 (3.5-5.0) g/dL Coronavirus (PCR) (Not Detectd) 02/14/20 02/14/20 02/14/20 Range/Units 14:22 14:22 14:22 WBC (3.8-10.6) k/uL RBC (3.80-5.40) m/uL Hgb (11.4-16.0) gm/dL Hct (34.0-46.0) % MCV (80.0-100.0) fL MCH (25.0-35.0) pg MCHC (31.0-37.0) g/dL RDW (11.5-15.5) % Plt Count (150-450) k/uL MPV Neutrophils % % Lymphocytes % % Monocytes % % Eosinophils % % Basophils % % Neutrophils # (1.3-7.7) k/uL Lymphocytes # (1.0-4.8) k/uL Monocytes # (0-1.0) k/uL Eosinophils # (0-0.7) k/uL Basophils # (0-0.2) k/uL PT (9.0-12.0) sec INR (<1.2) APTT (22.0-30.0) sec Sodium (137-145) mmol/L Potassium (3.5-5.1) mmol/L Chloride (98-107) mmol/L Carbon Dioxide (22-30) mmol/L Anion Gap mmol/L BUN (7-17) mg/dL Creatinine (0.52-1.04) mg/dL Est GFR (CKD-EPI)AfAm (>60 ml/min/1.73 sqM) Est GFR (CKD-EPI)NonAf (>60 ml/min/1.73 sqM) Glucose (74-99) mg/dL POC Glucose (mg/dL) (75-99) mg/dL POC Glu Mutual Fund Sales Agent ID Plasma Lactic Acid Janak 0.9 (0.7-2.0) mmol/L Calcium (8.4-10.2) mg/dL Magnesium (1.6-2.3) mg/dL Total Bilirubin (0.2-1.3) mg/dL AST (14-36) U/L ALT (4-34) U/L Alkaline Phosphatase (38-126) U/L Lactate Dehydrogenase (313-618) U/L C-Reactive Protein (<10.0) mg/L NT-Pro-B Natriuret Pep 2490 pg/mL Total Protein (6.3-8.2) g/dL Albumin (3.5-5.0) g/dL Coronavirus (PCR) Detected A (Not Detectd) 02/14/20 Range/Units 15:11 WBC (3.8-10.6) k/uL RBC (3.80-5.40) m/uL Hgb (11.4-16.0) gm/dL Hct (34.0-46.0) % MCV (80.0-100.0) fL MCH (25.0-35.0) pg MCHC (31.0-37.0) g/dL RDW (11.5-15.5) % Plt Count (150-450) k/uL MPV Neutrophils % % Lymphocytes % % Monocytes % % Eosinophils % % Basophils % % Neutrophils # (1.3-7.7) k/uL Lymphocytes # (1.0-4.8) k/uL Monocytes # (0-1.0) k/uL Eosinophils # (0-0.7) k/uL Basophils # (0-0.2) k/uL PT (9.0-12.0) sec INR (<1.2) APTT (22.0-30.0) sec Sodium (137-145) mmol/L Potassium (3.5-5.1) mmol/L Chloride (98-107) mmol/L Carbon Dioxide (22-30) mmol/L Anion Gap mmol/L BUN (7-17) mg/dL Creatinine (0.52-1.04) mg/dL Est GFR (CKD-EPI)AfAm (>60 ml/min/1.73 sqM) Est GFR (CKD-EPI)NonAf (>60 ml/min/1.73 sqM) Glucose (74-99) mg/dL POC Glucose (mg/dL) 56 L (75-99) mg/dL POC Glu Mutual Fund Sales Agent ID Lilliana Miller Plasma Lactic Acid Janak (0.7-2.0) mmol/L Calcium (8.4-10.2) mg/dL Magnesium (1.6-2.3) mg/dL Total Bilirubin (0.2-1.3) mg/dL AST (14-36) U/L ALT (4-34) U/L Alkaline Phosphatase (38-126) U/L Lactate Dehydrogenase (313-618) U/L C-Reactive Protein (<10.0) mg/L NT-Pro-B Natriuret Pep pg/mL Total Protein (6.3-8.2) g/dL Albumin (3.5-5.0) g/dL Coronavirus (PCR) (Not Detectd) Disposition Clinical Impression: COVID-19 Disposition: ADMITTED IP TO THIS HOSP Condition: Fair Referrals: Lewis Isaac DO [Primary Care Provider] - 1-2 days Decision Time: 15:31
[2020-02-14 14:43] LABS: Basophils # (A) 0.2 k/uL (0-0.2); Basophils % (A) 2 %; Eosinophils # (A) 0.1 k/uL (0-0.7); Eosinophils % (A) 1 %; HCT 33.2 % (34.0-46.0); HGB 11.2 gm/dL (11.4-16.0); Lymphocytes # (A) 0.8 k/uL (1.0-4.8); Lymphocytes % (A) 7 %; MCH 32.5 pg (25.0-35.0); MCHC 33.7 g/dL (31.0-37.0); MCV 96.4 fL (80.0-100.0); Mean Platelet Volume 7.6; Monocytes # (A) 0.6 k/uL (0-1.0); Monocytes % (A) 6 %; Neutrophils # (A) 8.6 k/uL (1.3-7.7); Neutrophils % (A) 83 %; Platelet Count 212 k/uL (150-450); RBC 3.44 m/uL (3.80-5.40); RDW 14.6 % (11.5-15.5); WBC 10.4 k/uL (3.8-10.6)
[2020-02-14 14:57] LABS: Calcium 8.8 mg/dL (8.4-10.2); Potassium 5.2 mmol/L (3.5-5.1); Total Bilirubin 0.5 mg/dL (0.2-1.3); Total Protein 7.3 g/dL (6.3-8.2)
[2020-02-14 15:00] LABS: Partial Thromboplastin Time 27.8 sec (22.0-30.0); Prothrombin Time 10.4 sec (9.0-12.0)
[2020-02-14] MEDS ORDERED: DEXTROSE 50% SYRINGE 50 ML IVP STA (15:09)
--- NOTE | 2020-02-14 15:09 | XR ---
EXAMINATION TYPE: XR chest 1V portable DATE OF EXAM: 02/14/2020 COMPARISON: 08/09/2017 HISTORY: Short of breath. TECHNIQUE: FINDINGS: There is pulmonary vascular congestion and pulmonary interstitial edema. Heart is enlarged. There are chest leads. There is mild blunting of the costophrenic angles. There is poor inspiration. IMPRESSION: Congestive heart failure. There is also evidence of right upper lobe and right lower lobe hernia. There is probably underlying pulmonary fibrosis. Heart failure and pneumonia are new compare d to old exam.
[2020-02-14] MEDS ORDERED: DEXAMETHASONE SOD PHOSPHATE 10 MG/ML 1 ML VIAL IV STA (15:16)
[2020-02-14 15:23] LABS: Glucose,Whole Blood 56 mg/dL (75-99)
[2020-02-14] MEDS ORDERED: NALOXONE 0.4 MG/ML 1 ML VIAL IV PRN (15:27)
[2020-02-14] MEDS ORDERED: ACETAMINOPHEN TAB 325 MG TAB PO PRN (15:27)
[2020-02-14 15:42] LABS: Glucose,Whole Blood 175 mg/dL (75-99)
[2020-02-14] MEDS ORDERED: ALBUTEROL HFA INHALER INHALATION PRN (16:05)
[2020-02-14] MEDS ORDERED: PNEUMONIA PROTOCOL UTILIZED 1 EACH MISC PO PRN (16:11)
[2020-02-14 16:34] LABS: Glucose,Whole Blood 119 mg/dL (75-99)
--- NOTE | 2020-02-14 16:40 | P.HPIM ---
History of Present Illness H&P Date: 02/14/20 Chief Complaint: CC: shortness of breath Patient is a 84-year-old lady with a past medical history of COPD (not on home O2), diabetes, chronic diastolic heart failure, hyperlipidemia, hypertension, hypothyroidism, arthritis, adrenal insufficiency who presents to the ED with shortness of breath 1 day. Patient is spanic speaking so history was obtained with the help of her daughter at bedside who is translating. Patient was rencently treated for heart failure at [facility] and discharged on 02/08. Patient states she was doing well until yesterday. She had trouble breathing at night. She stated that she was compliant with her medication and also with her fluid restriction. She says that her breathing is worse when she lays down flat. In the ED patient COVID 19 PCR wasa positive. Her chest x-ray showed findings consistent with congestive heart failure and there is also right upper lobe and right lower lobe consolidation consistent with pneumonia. Patient's creatinine was 2.2. She is satting 90% on room air however is short of breath. Review of Systems 10 ROS reviewed and are negative except as noted in HPI Past Medical History Past Medical History: Heart Failure, COPD, Diabetes Mellitus, GERD/Reflux, Hyperlipidemia, Hypertension, Osteoarthritis (OA), Thyroid Disorder Additional Past Medical History / Comment(s): Adrenal insufficiency requiring chronic hydrocortisone replacement, menopause, prior UTI, diabetic neuropathy gout History of Any Multi-Drug Resistant Organisms: ESBL Date of last positivie culture/infection: 08-24-13 MDRO Source:: Urine Past Surgical History: Joint Replacement Additional Past Surgical History / Comment(s): 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 patient's full code there is no CPAP needs no assistive devices for ambulation Smoking Status: Never smoker, Second hand smoke exposure Past Alcohol Use History: None Reported Past Drug Use History: None Reported - Past Family History Mother Family Medical History: Diabetes Mellitus Medications and Allergies Home Medications Medication Instructions Recorded Confirmed Type Hydrocortisone [Cortef] 10 mg PO DAILY 08/23/13 02/14/20 History Hydrocortisone [Cortef] 20 mg PO HS 08/23/13 02/14/20 History Levothyroxine Sodium [Synthroid] 137 mcg PO DAILY 08/23/13 02/14/20 History amLODIPine BESYLATE [Norvasc] 10 mg PO HS 08/09/17 02/14/20 History Acetaminophen Tab [Tylenol] 650 mg PO Q6H PRN 02/14/20 02/14/20 History Allopurinol [Zyloprim] 300 mg PO DAILY 02/14/20 02/14/20 History Aspirin EC [Ecotrin Low Dose] 81 mg PO DAILY 02/14/20 02/14/20 History Carvedilol [Coreg] 25 mg PO BID 02/14/20 02/14/20 History Furosemide [Lasix] 40 mg PO DAILY 02/14/20 02/14/20 History Insulin Glargine,Hum.rec.anlog 30 unit SQ HS 02/14/20 02/14/20 History [Lantus Solostar] Insulin Lispro [humaLOG Kwikpen] 28 unit SQ AC-TID 02/14/20 02/14/20 History Rosuvastatin Calcium [Crestor] 5 mg PO DAILY 02/14/20 02/14/20 History hydrALAZINE HCL [Apresoline] 25 mg PO TID 02/14/20 02/14/20 History Allergies Allergy/AdvReac Type Severity Reaction Status Date / Time No Known Allergies Allergy Verified 02/14/20 15:17 Physical Exam Osteopathic Statement: *. No significant issues noted on an osteopathic structural exam other than those noted in the History and Physical/Consult. Vitals: Vital Signs Temp Pulse Resp BP Pulse Ox 02/14/20 15:33 58 L 26 H 144/83 92 L 02/14/20 14:00 28 H 02/14/20 13:57 94 L 02/14/20 13:50 99.3 F 66 24 151/68 90 L Intake and Output 02/14/20 02/14/20 02/14/20 06:59 14:59 22:59 Other: Weight 80.966 kg 81.445 kg General: [Alert and oriented, well nourished, mild respiratory distress, appears chronically debilitated]. Eye: [PERRL, EOMI, normal conjunctiva]. HENT: [Normocephalic, clear tympanic membranes, normal hearing, moist oral mucosa, no scleral icterus, no sinus tenderness]. Neck: [Supple, non-tender, no carotid bruits, no JVD, no lymphadenopathy]. Lungs: [Diminished breath sounds bilaterally]. Heart: [Normal rate, regular rhythm, no murmur, gallop or +3 pitting edema bilaterally]. Abdomen: [Soft, non-tender, non-distended, normal bowel sounds, no masses]. Musculoskeletal: [Normal range of motion and strength, no tenderness or swelling]. Skin: [Skin is warm, dry and pink, no rashes or lesions]. Neurologic: [Awake, alert, and oriented X3, CN II-XII intact]. Psychiatric: [Cooperative, appropriate mood and affect]. Results CBC & Chem 7: 02/14/20 14:22 02/14/20 14:22 Labs: Abnormal Lab Results - Last 24 Hours (Table) 02/14/20 02/14/20 02/14/20 Range/Units 14:22 14:22 14:22 RBC 3.44 L (3.80-5.40) m/uL Hgb 11.2 L (11.4-16.0) gm/dL Hct 33.2 L (34.0-46.0) % Neutrophils # 8.6 H (1.3-7.7) k/uL Lymphocytes # 0.8 L (1.0-4.8) k/uL Sodium 131 L (137-145) mmol/L Potassium 5.2 H (3.5-5.1) mmol/L BUN 61 H (7-17) mg/dL Creatinine 2.20 H (0.52-1.04) mg/dL Glucose 57 L (74-99) mg/dL POC Glucose (mg/dL) (75-99) mg/dL AST 42 H (14-36) U/L Lactate Dehydrogenase 1000 H (313-618) U/L C-Reactive Protein 79.0 H (<10.0) mg/L Coronavirus (PCR) Detected A (Not Detectd) 02/14/20 02/14/20 02/14/20 Range/Units 15:11 15:31 16:33 RBC (3.80-5.40) m/uL Hgb (11.4-16.0) gm/dL Hct (34.0-46.0) % Neutrophils # (1.3-7.7) k/uL Lymphocytes # (1.0-4.8) k/uL Sodium (137-145) mmol/L Potassium (3.5-5.1) mmol/L BUN (7-17) mg/dL Creatinine (0.52-1.04) mg/dL Glucose (74-99) mg/dL POC Glucose (mg/dL) 56 L 175 H 119 H (75-99) mg/dL AST (14-36) U/L Lactate Dehydrogenase (313-618) U/L C-Reactive Protein (<10.0) mg/L Coronavirus (PCR) (Not Detectd) Assessment and Plan Assessment: Patient is a 84-year-old lady with a past medical history of COPD (not on home O2), diabetes, chronic diastolic heart failure, hyperlipidemia, hypertension, hypothyroidism, arthritis, adrenal insufficiency who presents to the ED with shortness of breath 1 day. #Acute dyspnea which is multifocal #COVID 19 pneumonia #Acute on chronic diastolic heart failure -We'll start patient on IV Lasix 40 mg twice a day -2 L fluid restriction, daily weight, strict I's and O's -Start dexamethasone -D-dimer pending. We'll start patient on Lovenox 30 mg daily -Pro calcitonin pending. We'll empirically start patient on IV ceftriaxone and azithromycin -Vitamin D, zinc and vitamin C -O2 supplement as needed, albuterol scheduled and as needed -Check echocardiogram, trend troponin 3 -Consult cardiology and pulmonology #Acute kidney injury likely cardiorenal (baseline creatinine 1.2) -Creatinine on admission is 2.2 -Start IV Lasix 40 mg twice a day -Nephrology consult #COPD -No wheezing -Stable #Hypertension -Resume home meds however discontinue amlodipine due to heart failure #Hyperlipidemia -Resume statin #Hypothyroidism -Resume Synthroid #Adrenal insufficiency -Resume home dose hydrocortisone -Patient also started on dexamethasone which will be her stress dose steroids as well as treatment to Covid 19 #Gout -Resume allopurinol #Diabetes -Resume Lantus 30 units subcu bedtime -Sliding-scale insulin -Diabetic diet -Check hemoglobin A1c CODE STATUS:full code DVT prophylaxis: Lovenox Discussed with: Patient, ER, rn Anticipated length of stay > than [address]: home A total of 75 minutes was spent on the care of this complex patient more than 50% of the time was spent in counseling and care coordination.
[2020-02-14] MEDS: ASCORBIC ACID 500 MG TAB PO SCH (18:12)
[2020-02-14] MEDS: carvediloL 12.5 MG TAB PO SCH (18:12)
[2020-02-14] MEDS: INSULIN ASPART (NovoLOG) 100 UNIT/ML VIAL SQ SCH ×2 (18:12→20:43)
[2020-02-14] MEDS: FUROSEMIDE 10 MG/ML 4 ML VIAL IV SCH (18:12)
[2020-02-14] MEDS: ZINC SULFATE 220 MG CAP PO SCH (18:12)
[2020-02-14] MEDS: SODIUM CHLORIDE 0.9% 1,000 ML IV SCH (18:26)
[2020-02-14] MEDS: CHOLECALCIFEROL 400 UNIT TAB PO SCH (18:32)
[2020-02-14] MEDS: ENOXAPARIN 30 MG/0.3 ML SYRINGE SQ SCH (18:32)
[2020-02-14 20:11] LABS: Glucose,Whole Blood 309 mg/dL (75-99)
[2020-02-14] MEDS: INSULIN DETEMIR (LEVEMIR) 100 UNIT/ML SYR SQ SCH (20:35)
[2020-02-14] MEDS: hydrALAZINE HCL 25 MG TAB PO SCH (20:42)
[2020-02-14] MEDS: HYDROCORTISONE 20 MG TAB PO SCH (20:42)
[2020-02-14] MEDS: ALBUTEROL HFA INHALER INHALATION SCH (21:09)
[2020-02-14 22:46] LABS: Ferritin 122.5 ng/mL (10.0-291.0)
[2020-02-15] MEDS: ALBUTEROL HFA INHALER INHALATION SCH ×4 (02:52→19:46)
[2020-02-15] MEDS: FUROSEMIDE 10 MG/ML 4 ML VIAL IV SCH ×2 (04:39→16:31)
[2020-02-15] MEDS: LEVOTHYROXINE 137 MCG TAB PO SCH (05:35)
[2020-02-15 05:59] LABS: Basophils % (A) 0 %; Eosinophils % (A) 0 %; HCT 31.3 % (34.0-46.0); HGB 10.3 gm/dL (11.4-16.0); Lymphocytes # (A) 0.5 k/uL (1.0-4.8); Lymphocytes % (A) 6 %; MCH 32.9 pg (25.0-35.0); MCHC 32.9 g/dL (31.0-37.0); MCV 99.8 fL (80.0-100.0); Macrocytosis Slight; Mean Platelet Volume 7.7; Monocytes # (A) 0.2 k/uL (0-1.0); Monocytes % (A) 2 %; Neutrophils # (A) 7.4 k/uL (1.3-7.7); Neutrophils % (A) 92 %; Platelet Count 184 k/uL (150-450); RBC 3.13 m/uL (3.80-5.40); RDW 14.4 % (11.5-15.5); WBC 8.1 k/uL (3.8-10.6)
[2020-02-15 07:04] LABS: Glucose,Whole Blood 427 mg/dL (75-99)
[2020-02-15] MEDS: ENOXAPARIN 30 MG/0.3 ML SYRINGE SQ SCH (08:30)
[2020-02-15] MEDS: INSULIN ASPART (NovoLOG) 100 UNIT/ML VIAL SQ SCH ×8 (08:31→20:45)
[2020-02-15] MEDS: dexAMETHasone 2 MG TAB PO SCH (08:32)
[2020-02-15] MEDS: ZINC SULFATE 220 MG CAP PO SCH (08:32)
[2020-02-15] MEDS: ASPIRIN 81 MG PO SCH (08:32)
[2020-02-15] MEDS: HYDROCORTISONE 10 MG TAB PO SCH (08:33)
[2020-02-15] MEDS: ASCORBIC ACID 500 MG TAB PO SCH (08:33)
[2020-02-15] MEDS: ATORVASTATIN 10 MG TAB PO SCH (08:33)
[2020-02-15] MEDS: carvediloL 12.5 MG TAB PO SCH ×2 (08:33→16:31)
[2020-02-15] MEDS: hydrALAZINE HCL 25 MG TAB PO SCH ×3 (08:33→21:50)
[2020-02-15] MEDS: CHOLECALCIFEROL 400 UNIT TAB PO SCH (08:34)
[2020-02-15] MEDS ORDERED: allopurinoL 300 MG TAB PO SCH (09:00)
[2020-02-15] MEDS ORDERED: AZITHROMYCIN 500 MG TAB PO SCH (09:00)
--- NOTE | 2020-02-15 09:18 | P.CRDCN ---
History of Present Illness History of present illness: 84-year-old female admitted with altered mental status and shortness of breath Diagnoses chart review Patient was brought in with shortness of breath cough and fever for the last 2 days. She was at [facility] for the same complaint and was admitted for week At home she has low-grade fever and a productive cough She was short of breath at rest but alert and oriented 3 according to the ER heart rate was normal regular rhythm 2+ pitting edema was noted in the lower extremities She is febrile 99.3, also walks 94% on 2 L oxygen Without oxygen it would drop into the upper 80s Positive PCR for coronavirus she received Decadron Twelve-lead ECG shows sinus rhythm normal VA narrow QRS and no ST segment abnormalities. LVH noted Labs reviewed White count 10.4 thousand him a hemoglobin 11.2, platelet count 212,000 Lymphopenia D-dimer 1.67 Sodium 131 potassium 5.2, BUN 61 creatinine 2.2 Normal troponin Imes to Coronavirus PCR detected C-reactive protein 79 Per calcitonin normal LDH 1000, ALT and AST minimally abnormal, normal ferritin On examination blood pressure 144/65, pulse rate is in the 60s and 70s, currently afebrile Medications reviewed Medical plan reviewed Blood pressure control with hydralazine 25 mg 3 times a day and carvedilol 25 mg twice daily Atorvastatin 10 mg daily Aspirin 81 mg by mouth daily Patient is on subcutaneous heparin and is also on dexamethasone line she is on Lasix Suggest From a cardiac standpoint she has elevated CRP with normal troponins & normal ECG Continue blood pressure control continue IV diuresis Management of Covid per primary team No other specific cardiac issues at this time Please call as needed Consideration for workup of elevated d-dimer per primary team Past Medical History Past Medical History: Heart Failure, COPD, Diabetes Mellitus, GERD/Reflux, Hyperlipidemia, Hypertension, Osteoarthritis (OA), Thyroid Disorder Additional Past Medical History / Comment(s): Adrenal insufficiency requiring chronic hydrocortisone replacement, menopause, prior UTI, diabetic neuropathy gout History of Any Multi-Drug Resistant Organisms: ESBL Date of last positivie culture/infection: 08-24-13 MDRO Source:: Urine Past Surgical History: Joint Replacement Additional Past Surgical History / Comment(s): 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 patient's full code there is no CPAP needs no assistive devices for ambulation Smoking Status: Never smoker, Second hand smoke exposure Past Alcohol Use History: None Reported Past Drug Use History: None Reported - Past Family History Mother Family Medical History: Diabetes Mellitus Medications and Allergies Home Medications Medication Instructions Recorded Confirmed Type Hydrocortisone [Cortef] 10 mg PO DAILY 08/23/13 02/14/20 History Hydrocortisone [Cortef] 20 mg PO HS 08/23/13 02/14/20 History Levothyroxine Sodium [Synthroid] 137 mcg PO DAILY 08/23/13 02/14/20 History amLODIPine BESYLATE [Norvasc] 10 mg PO HS 08/09/17 02/14/20 History Acetaminophen Tab [Tylenol] 650 mg PO Q6H PRN 02/14/20 02/14/20 History Allopurinol [Zyloprim] 300 mg PO DAILY 02/14/20 02/14/20 History Aspirin EC [Ecotrin Low Dose] 81 mg PO DAILY 02/14/20 02/14/20 History Carvedilol [Coreg] 25 mg PO BID 02/14/20 02/14/20 History Furosemide [Lasix] 40 mg PO DAILY 02/14/20 02/14/20 History Insulin Glargine,Hum.rec.anlog 30 unit SQ HS 02/14/20 02/14/20 History [Lantus Solostar] Insulin Lispro [humaLOG Kwikpen] 28 unit SQ AC-TID 02/14/20 02/14/20 History Rosuvastatin Calcium [Crestor] 5 mg PO DAILY 02/14/20 02/14/20 History hydrALAZINE HCL [Apresoline] 25 mg PO TID 02/14/20 02/14/20 History Allergies Allergy/AdvReac Type Severity Reaction Status Date / Time No Known Allergies Allergy Verified 02/14/20 15:17 Physical Exam Vitals: Vital Signs Temp Pulse Pulse Resp BP BP Pulse Ox 02/15/20 05:15 97.8 F 56 L 16 124/63 94 L 02/14/20 22:26 97.7 F 60 20 135/61 93 L 02/14/20 21:09 92 L 02/14/20 20:00 60 20 02/14/20 18:35 97.0 F L 78 18 144/65 93 L 02/14/20 15:33 58 L 26 H 144/83 92 L 02/14/20 14:00 28 H 02/14/20 13:57 94 L 02/14/20 13:50 99.3 F 66 24 151/68 90 L Intake and Output 02/14/20 02/15/20 02/15/20 22:59 06:59 14:59 Intake Total 60 590 Balance 60 590 Intake: Oral 60 590 Other: Voiding Method Bedside Commode Diaper Incontinent # Voids 3 # Bowel Movements 1 3 Weight 81.445 kg Results 02/15/20 04:51 02/14/20 14:22 Cardiac Enzymes 02/14/20 02/14/20 02/14/20 Range/Units 14:22 14:22 17:10 AST 42 H (14-36) U/L Lactate Dehydrogenase 1000 H (313-618) U/L Troponin I <0.012 <0.012 (0.000-0.034) ng/mL Coagulation 02/14/20 Range/Units 14:22 PT 10.4 (9.0-12.0) sec APTT 27.8 (22.0-30.0) sec CBC 02/14/20 02/15/20 Range/Units 14:22 04:51 WBC 10.4 8.1 (3.8-10.6) k/uL RBC 3.44 L 3.13 L (3.80-5.40) m/uL Hgb 11.2 L 10.3 L (11.4-16.0) gm/dL Hct 33.2 L 31.3 L (34.0-46.0) % Plt Count 212 184 (150-450) k/uL Comprehensive Metabolic Panel 02/14/20 Range/Units 14:22 Sodium 131 L (137-145) mmol/L Potassium 5.2 H (3.5-5.1) mmol/L Chloride 100 (98-107) mmol/L Carbon Dioxide 22 (22-30) mmol/L BUN 61 H (7-17) mg/dL Creatinine 2.20 H (0.52-1.04) mg/dL Glucose 57 L (74-99) mg/dL Calcium 8.8 (8.4-10.2) mg/dL AST 42 H (14-36) U/L ALT 29 (4-34) U/L Alkaline Phosphatase 77 (38-126) U/L Total Protein 7.3 (6.3-8.2) g/dL Albumin 4.0 (3.5-5.0) g/dL Current Medications Generic Name Dose Route Start Last Admin Trade Name Freq PRN Reason Stop Dose Admin Acetaminophen 650 mg 02/14/20 15:27 Acetaminophen Tab 325 Mg Tab PO Q6HR PRN Mild Pain or Fever > 100.5 Albuterol Sulfate 2 puff 02/14/20 16:05 Albuterol Hfa Inhaler INHALATION RT-Q6H PRN Shortness Of Breath Or Wheezing Albuterol Sulfate 2 puff 02/14/20 20:00 02/15/20 08:23 Albuterol Hfa Inhaler INHALATION Not Given RT-Q6H [facility] Allopurinol 300 mg 02/15/20 09:00 02/15/20 08:33 Allopurinol 300 Mg Tab PO 300 mg DAILY [place] Administration Ascorbic Acid 1,000 mg 02/14/20 16:45 02/15/20 08:33 Ascorbic Acid 500 Mg Tab PO 1,000 mg DAILY [place] Administration Aspirin 81 mg 02/15/20 09:00 02/15/20 08:32 Aspirin 81 Mg PO 81 mg DAILY [place] Administration Atorvastatin Calcium 10 mg 02/15/20 09:00 02/15/20 08:33 Atorvastatin 10 Mg Tab PO 10 mg DAILY [place] Administration Azithromycin 500 mg 02/15/20 09:00 02/15/20 08:34 Azithromycin 500 Mg Tab PO 02/19/20 09:01 500 mg DAILY [place] Administration Carvedilol 25 mg 02/14/20 17:30 02/15/20 08:33 Carvedilol 12.5 Mg Tab PO 25 mg AC-BID [place] Administration Cholecalciferol 400 unit 02/14/20 16:45 02/15/20 08:34 Cholecalciferol 400 Unit Tab PO 400 unit DAILY [place] Administration Dexamethasone 6 mg 02/15/20 09:00 02/15/20 08:32 Dexamethasone 2 Mg Tab PO 02/25/20 09:01 6 mg DAILY [place] Administration Enoxaparin Sodium 30 mg 02/14/20 16:15 02/15/20 08:30 Enoxaparin 30 Mg/0.3 Ml Syringe SQ 30 mg Q24HR [place] Administration Furosemide 40 mg 02/14/20 16:00 02/15/20 04:39 Furosemide 10 Mg/Ml 4 Ml Vial IV 40 mg Q12H [place] Administration Hydralazine HCl 25 mg 02/14/20 22:00 02/15/20 08:33 Hydralazine Hcl 25 Mg Tab PO 25 mg TID [place] Administration Hydrocortisone 10 mg 02/15/20 09:00 02/15/20 08:33 Hydrocortisone 10 Mg Tab PO 10 mg DAILY [place] Administration Hydrocortisone 20 mg 02/14/20 21:00 02/14/20 20:42 Hydrocortisone 20 Mg Tab PO 20 mg HS [place] Administration Sodium Chloride 1,000 mls @ 20 mls/hr 02/14/20 15:30 02/14/20 18:26 Saline 0.9% IV Not Given .Q24H [place] Ceftriaxone Sodium 2 gm/ 50 mls @ 100 mls/hr 02/15/20 09:00 02/15/20 08:38 Sodium Chloride IVPB 02/17/20 09:01 100 mls/hr Q24HR [place] Administration Insulin Aspart 0 unit 02/14/20 17:30 02/15/20 08:31 Insulin Aspart (Novolog) 100 Unit/Ml Vial SQ 9 unit ACHS [place] Administration Protocol Insulin Aspart 3 unit 02/15/20 12:30 Insulin Aspart (Novolog) 100 Unit/Ml Vial SQ ACHS [place] Insulin Detemir 30 unit 02/14/20 21:00 02/14/20 20:35 Insulin Detemir (Levemir) 100 Unit/Ml Syr SQ 30 unit HS [place] Administration Levothyroxine Sodium 137 mcg 02/15/20 06:30 02/15/20 05:35 Levothyroxine 137 Mcg Tab PO 137 mcg 0630 [place] Administration Miscellaneous Information 1 each 02/14/20 16:11 Pneumonia Protocol Utilized 1 Each Misc PO ONCE PRN Per Protocol Naloxone HCl 0.2 mg 02/14/20 15:27 Naloxone 0.4 Mg/Ml 1 Ml Vial IV Q2M PRN Opioid Reversal Zinc Sulfate 220 mg 02/14/20 16:45 02/15/20 08:32 Zinc Sulfate 220 Mg Cap PO 220 mg DAILY [place] Administration Intake and Output 02/14/20 02/15/20 02/15/20 22:59 06:59 14:59 Intake Total 60 590 Balance 60 590 Intake: Oral 60 590 Other: Voiding Method Bedside Commode Diaper Incontinent # Voids 3 # Bowel Movements 1 3 Weight 81.445 kg 02/15/20 04:51 02/14/20 14:22
[2020-02-15 09:49] LABS: African American GFR (CKD) 21.9 (60.0-200.0); Albumin/Globulin Ratio 1.67 (1.60-3.17); Anion Gap 9.8 mmol/L (4.00-12.00); BUN/Creat Ratio 32.17 Ratio (12.00-20.00); Calcium 8.1 mg/dL (8.7-10.3); Carbon Dioxide 19.2 mmol/L (21.6-31.8); Globulin 2.4 g/dL (1.6-3.3); Non-African American GFR(CKD) 18.9 (60.0-200.0); Potassium 5.8 mmol/L (3.5-5.5); Total Bilirubin 0.3 mg/dL (0.3-1.2); Total Protein 6.4 g/dL (6.2-8.2)
[2020-02-15 10:44] LABS: Glucose,Whole Blood 504 mg/dL (75-99)
[2020-02-15 10:44] LABS: Glucose,Whole Blood 528 mg/dL (75-99)
--- NOTE | 2020-02-15 12:16 | P.HPIM ---
History of Present Illness H&P Date: 02/15/20 Chief Complaint: Shortness of breath This is an 84-year-old female patient of Dr. Jacques, with a past medical history of diastolic congestive heart failure, COPD, hypothyroidism, adrenal insufficiency, hypertension and diabetes. Patient was recently admitted to [facility] for complaints of shortness of breath and was treated for a CHF exacerbation. She was discharged home on 02/08. Patient returned back to the emergency department with low-grade fever, productive cough and worsening shortness of breath. [facility] Chest x-ray showed congestive heart failure, right upper lobe and right lower lobe pneumonia. Troponins were negative 2, wbc 8.1, hemoglobin 10.3, sodium 126, potassium 5.8, BUN 74, creatinine 2.3. Cardiology, nephrology, pulmonary have been consulted. Patient currently 97% on 3 L via nasal cannula, vital signs are stable. Past Medical History Past Medical History: Heart Failure, COPD, Diabetes Mellitus, GERD/Reflux, Hyperlipidemia, Hypertension, Osteoarthritis (OA), Thyroid Disorder Additional Past Medical History / Comment(s): Adrenal insufficiency requiring chronic hydrocortisone replacement, menopause, prior UTI, diabetic neuropathy gout History of Any Multi-Drug Resistant Organisms: ESBL Date of last positivie culture/infection: 08-24-13 MDRO Source:: Urine Past Surgical History: Joint Replacement Additional Past Surgical History / Comment(s): 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 patient's full code there is no CPAP needs no assistive devices for ambulation Smoking Status: Never smoker, Second hand smoke exposure Past Alcohol Use History: None Reported Past Drug Use History: None Reported - Past Family History Mother Family Medical History: Diabetes Mellitus Medications and Allergies Home Medications Medication Instructions Recorded Confirmed Type Hydrocortisone [Cortef] 10 mg PO DAILY 08/23/13 02/14/20 History Hydrocortisone [Cortef] 20 mg PO HS 08/23/13 02/14/20 History Levothyroxine Sodium [Synthroid] 137 mcg PO DAILY 08/23/13 02/14/20 History amLODIPine BESYLATE [Norvasc] 10 mg PO HS 08/09/17 02/14/20 History Acetaminophen Tab [Tylenol] 650 mg PO Q6H PRN 02/14/20 02/14/20 History Allopurinol [Zyloprim] 300 mg PO DAILY 02/14/20 02/14/20 History Aspirin EC [Ecotrin Low Dose] 81 mg PO DAILY 02/14/20 02/14/20 History Carvedilol [Coreg] 25 mg PO BID 02/14/20 02/14/20 History Furosemide [Lasix] 40 mg PO DAILY 02/14/20 02/14/20 History Insulin Glargine,Hum.rec.anlog 30 unit SQ HS 02/14/20 02/14/20 History [Lantus Solostar] Insulin Lispro [humaLOG Kwikpen] 28 unit SQ AC-TID 02/14/20 02/14/20 History Rosuvastatin Calcium [Crestor] 5 mg PO DAILY 02/14/20 02/14/20 History hydrALAZINE HCL [Apresoline] 25 mg PO TID 02/14/20 02/14/20 History Allergies Allergy/AdvReac Type Severity Reaction Status Date / Time No Known Allergies Allergy Verified 02/14/20 15:17 Physical Exam Vitals: Vital Signs Temp Pulse Pulse Resp BP BP Pulse Ox 02/15/20 11:00 98.9 F 62 17 137/64 97 02/15/20 05:15 97.8 F 56 L 16 124/63 94 L 02/14/20 22:26 97.7 F 60 20 135/61 93 L 02/14/20 21:09 92 L 02/14/20 20:00 60 20 02/14/20 18:35 97.0 F L 78 18 144/65 93 L 02/14/20 15:33 58 L 26 H 144/83 92 L 02/14/20 14:00 28 H 02/14/20 13:57 94 L 02/14/20 13:50 99.3 F 66 24 151/68 90 L Intake and Output 02/14/20 02/15/20 02/15/20 22:59 06:59 14:59 Intake Total 60 590 Balance 60 590 Intake: Oral 60 590 Other: Voiding Method Bedside Commode Bedside Commode Diaper Diaper Incontinent Incontinent # Voids 3 # Bowel Movements 1 3 Weight 81.445 kg - Constitutional General appearance: cooperative, no acute distress, obese - EENT Eyes: EOMI, PERRLA, normal appearance ENT: hearing grossly normal, normal oropharynx, no pharyngeal erythema, no thrush - Neck Neck: no lymphadenopathy, normal ROM, no rigidity, no thyromegaly - Respiratory Respiratory: bilateral: diminished, rhonchi, negative: dullness, rales, wheezing - Cardiovascular Rhythm: regular Heart sounds: normal: S1, S2 leg Peripheral Edema: bilateral: 3+ - Gastrointestinal General gastrointestinal: no distended, no hepatomegaly, normal bowel sounds, no organomegaly, no splenomegaly, no tenderness - Neurologic Neurologic: CNII-XII intact - Musculoskeletal Musculoskeletal: generalized weakness, strength equal bilaterally, no right sided weakness, no left sided weakness - Psychiatric Psychiatric: A&O x's 3, appropriate affect Results CBC & Chem 7: 02/15/20 04:51 02/15/20 04:51 Labs: Abnormal Lab Results - Last 24 Hours (Table) 02/14/20 02/14/20 02/14/20 Range/Units 14:22 14:22 14:22 RBC 3.44 L (3.80-5.40) m/uL Hgb 11.2 L (11.4-16.0) gm/dL Hct 33.2 L (34.0-46.0) % Neutrophils # 8.6 H (1.3-7.7) k/uL Lymphocytes # 0.8 L (1.0-4.8) k/uL D-Dimer (<0.60) mg/L FEU Sodium 131 L (137-145) mmol/L Potassium 5.2 H (3.5-5.1) mmol/L Carbon Dioxide (21.6-31.8) mmol/L BUN 61 H (7-17) mg/dL Creatinine 2.20 H (0.52-1.04) mg/dL Est GFR (CKD-EPI)AfAm (60.0-200.0) Est GFR (CKD-EPI)NonAf (60.0-200.0) BUN/Creatinine Ratio (12.00-20.00) Ratio Glucose 57 L (74-99) mg/dL POC Glucose (mg/dL) (75-99) mg/dL Calcium (8.7-10.3) mg/dL AST 42 H (14-36) U/L Lactate Dehydrogenase 1000 H (313-618) U/L C-Reactive Protein 79.0 H (<10.0) mg/L Coronavirus (PCR) Detected A (Not Detectd) 02/14/20 02/14/20 02/14/20 Range/Units 14:22 15:11 15:31 RBC (3.80-5.40) m/uL Hgb (11.4-16.0) gm/dL Hct (34.0-46.0) % Neutrophils # (1.3-7.7) k/uL Lymphocytes # (1.0-4.8) k/uL D-Dimer 1.67 H (<0.60) mg/L FEU Sodium (137-145) mmol/L Potassium (3.5-5.1) mmol/L Carbon Dioxide (21.6-31.8) mmol/L BUN (7-17) mg/dL Creatinine (0.52-1.04) mg/dL Est GFR (CKD-EPI)AfAm (60.0-200.0) Est GFR (CKD-EPI)NonAf (60.0-200.0) BUN/Creatinine Ratio (12.00-20.00) Ratio Glucose (74-99) mg/dL POC Glucose (mg/dL) 56 L 175 H (75-99) mg/dL Calcium (8.7-10.3) mg/dL AST (14-36) U/L Lactate Dehydrogenase (313-618) U/L C-Reactive Protein (<10.0) mg/L Coronavirus (PCR) (Not Detectd) 02/14/20 02/14/20 02/15/20 Range/Units 16:33 20:10 04:51 RBC 3.13 L (3.80-5.40) m/uL Hgb 10.3 L (11.4-16.0) gm/dL Hct 31.3 L (34.0-46.0) % Neutrophils # (1.3-7.7) k/uL Lymphocytes # 0.5 L (1.0-4.8) k/uL D-Dimer (<0.60) mg/L FEU Sodium (137-145) mmol/L Potassium (3.5-5.1) mmol/L Carbon Dioxide (21.6-31.8) mmol/L BUN (7-17) mg/dL Creatinine (0.52-1.04) mg/dL Est GFR (CKD-EPI)AfAm (60.0-200.0) Est GFR (CKD-EPI)NonAf (60.0-200.0) BUN/Creatinine Ratio (12.00-20.00) Ratio Glucose (74-99) mg/dL POC Glucose (mg/dL) 119 H 309 H (75-99) mg/dL Calcium (8.7-10.3) mg/dL AST (14-36) U/L Lactate Dehydrogenase (313-618) U/L C-Reactive Protein (<10.0) mg/L Coronavirus (PCR) (Not Detectd) 02/15/20 02/15/20 02/15/20 Range/Units 04:51 07:02 10:42 RBC (3.80-5.40) m/uL Hgb (11.4-16.0) gm/dL Hct (34.0-46.0) % Neutrophils # (1.3-7.7) k/uL Lymphocytes # (1.0-4.8) k/uL D-Dimer (<0.60) mg/L FEU Sodium 126 L (137-145) mmol/L Potassium 5.8 H (3.5-5.1) mmol/L Carbon Dioxide 19.2 L (21.6-31.8) mmol/L BUN 74.0 H (7-17) mg/dL Creatinine 2.3 H (0.52-1.04) mg/dL Est GFR (CKD-EPI)AfAm 21.9 L (60.0-200.0) Est GFR (CKD-EPI)NonAf 18.9 L (60.0-200.0) BUN/Creatinine Ratio 32.17 H (12.00-20.00) Ratio Glucose 401 H (74-99) mg/dL POC Glucose (mg/dL) 427 H 528 H (75-99) mg/dL Calcium 8.1 L (8.7-10.3) mg/dL AST (14-36) U/L Lactate Dehydrogenase (313-618) U/L C-Reactive Protein (<10.0) mg/L Coronavirus (PCR) (Not Detectd) 02/15/20 Range/Units 10:43 RBC (3.80-5.40) m/uL Hgb (11.4-16.0) gm/dL Hct (34.0-46.0) % Neutrophils # (1.3-7.7) k/uL Lymphocytes # (1.0-4.8) k/uL D-Dimer (<0.60) mg/L FEU Sodium (137-145) mmol/L Potassium (3.5-5.1) mmol/L Carbon Dioxide (21.6-31.8) mmol/L BUN (7-17) mg/dL Creatinine (0.52-1.04) mg/dL Est GFR (CKD-EPI)AfAm (60.0-200.0) Est GFR (CKD-EPI)NonAf (60.0-200.0) BUN/Creatinine Ratio (12.00-20.00) Ratio Glucose (74-99) mg/dL POC Glucose (mg/dL) 504 H (75-99) mg/dL Calcium (8.7-10.3) mg/dL AST (14-36) U/L Lactate Dehydrogenase (313-618) U/L C-Reactive Protein (<10.0) mg/L Coronavirus (PCR) (Not Detectd) Thrombosis Risk Factor Assmnt - Choose All That Apply Each Factor Represents 1 point: Abnormal pulmonary function (COPD), Heart failure (<1month), Medical pt on bed rest, Obesity (BMI >25), Serious lung disease incl. pneumonia (< 1month), Swollen legs (current) Each Risk Factor Represents 2 Points: Patient confined to bed Each Risk Factor Represents 3 Points: Age 75 years or older Other congenital or acquired thrombophilia - If yes, enter type in comment: No Thrombosis Risk Factor Assessment Total Risk Factor Score: 11 Thrombosis Risk Factor Assessment Level: High Risk Assessment and Plan Plan: 1. Acute hypoxic respiratory failure. Combination of COVID 19 pneumonia along with acute on chronic diastolic heart failure. Patient started on Lasix 40 mg twice a day, dexamethasone,Lovenox, IV ceftriaxone and azithromycin, updraft treatments, pulmonary as well as cardiology on consult 2. Covid 19 pneumonia. Pulmonary on consult, continue dexamethasone 6 mg daily, Lovenox, ceftriaxone and azithromycin, vitamin C and zinc, supplemental oxygen 3. Acute on chronic diastolic heart failure. Cardiology on consult, continue Lasix 40 mg twice a day IV, and Coreg 25 mg twice a day, and hydralazine 25 mg 3 times a day, I&Os 4. Acute kidney injury on chronic kidney disease stage III. We'll continue to watch kidney function closely, nephrology on consult 5. COPD. Continue updraft treatments 6. Hypertension. Continue Coreg 25 mg twice a day as well as hydralazine 25 mg 3 times a day 7. Hypothyroidism. Continue levothyroxine 137 g daily 8. Adrenal insufficiency continue Cortef 25 mg at bedtime, 10 mg in the morning 9. Diabetes mellitus type 2. Levemir 30 units at bedtime along with NovoLog 3 units with meals plus Accu-Cheks sliding scale coverage 10. Hyperlipidemia. Continue atorvastatin 10 mg daily 11. History of gout. No current exacerbation, resume allopurinol 300 mg daily 12. GI prophylaxis. Pantoprazole 13. DVT prophylaxis. Lovenox The above impression and plan of care have been discussed and directed by signing physician. Lilliana Waldron nurse practitioner acting as scribe for signing physician.
[2020-02-15 12:31] VITALS: BMI 35.0
--- NOTE | 2020-02-15 13:39 | P.CNPUL ---
History of Present Illness Consult date: 02/15/20 Requesting physician: Lilliana Waldron Reason for consult: dyspnea Chief complaint: Shortness of breath, hypoxia History of present illness: 84-year-old female patient of Dr. Isaac, with the past medical history of COPD, not oxygen dependent, diabetes mellitus type 2, chronic CHF with diastolic dysfunction, hypertension, hyperlipidemia, hypothyroidism, chronic adrenal insufficiency on hydrocortisone, who was recently treated at [facility] and discharged home on 02/09/2020. Patient was doing well until yesterday on 02/14/2020 when she developed shortness of breath, cough with some phlegm production, and mild fevers at home, she denied a sore throat, denied runny nose. She was brought into the hospital by her daughter. Her daughter reports that her recent admission to [facility] was for CHF exacerbation. No worsening edema, her swelling has actually improved. The status of quit 19 testing was unknown. Patient was tested in the emergency department at the time of admission was found to be positive for COVID 19. She is currently on 3 L of oxygen and a pulse ox of 97%, hemodynamically she is stable, she's been afebrile while in the hospital. Admission labs showed a white cell count of 10.4, hemoglobin of 11.2, lymphocyte, 0.8, d-dimer 1.67, sodium is 131, potassium is 5.2, chloride is 100, BUN of 61 creatinine is 2.2, LDH was elevated at 1000, troponin was negative 2 at less than 0.012, CRP was 79, proBNP was 2490, pro-calcitonin was negative at 0.08. Her chest x-ray shows pulmonary vessel congestion and pulmonary interstitial edema. The heart is enlarged, and there is some mild blunting of the costophrenic angles, and there is poor inspiration. She was started on antibiotics for possibility of chlamydia, pneumonia in the form of azithromycin and Rocephin. She is on oral Decadron 6 mg daily, and IV Lasix of 40 mg twice daily. Review of Systems All systems: negative Constitutional: Denies chills, Denies fever Eyes: denies blurred vision, denies pain Ears, nose, mouth and throat: Denies headache, Denies sore throat Cardiovascular: Denies chest pain, Denies shortness of breath Respiratory: Reports cough with sputum, Reports dyspnea, Denies cough Gastrointestinal: Denies abdominal pain, Denies diarrhea, Denies nausea, Denies vomiting Genitourinary: Denies dysuria, Denies hematuria Musculoskeletal: Denies myalgias Integumentary: Denies pruritus, Denies rash Neurological: Denies numbness, Denies weakness Psychiatric: Denies anxiety, Denies depression Endocrine: Denies fatigue, Denies weight change Past Medical History Past Medical History: Heart Failure, COPD, Diabetes Mellitus, GERD/Reflux, Hyperlipidemia, Hypertension, Osteoarthritis (OA), Thyroid Disorder Additional Past Medical History / Comment(s): Adrenal insufficiency requiring chronic hydrocortisone replacement, menopause, prior UTI, diabetic neuropathy gout History of Any Multi-Drug Resistant Organisms: ESBL Date of last positivie culture/infection: 08-24-13 MDRO Source:: Urine Past Surgical History: Joint Replacement Additional Past Surgical History / Comment(s): 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 patient's full code there is no CPAP needs no assistive devices for ambulation Smoking Status: Never smoker, Second hand smoke exposure Past Alcohol Use History: None Reported Past Drug Use History: None Reported - Past Family History Mother Family Medical History: Diabetes Mellitus Medications and Allergies Home Medications Medication Instructions Recorded Confirmed Type Hydrocortisone [Cortef] 10 mg PO DAILY 08/23/13 02/14/20 History Hydrocortisone [Cortef] 20 mg PO HS 08/23/13 02/14/20 History Levothyroxine Sodium [Synthroid] 137 mcg PO DAILY 08/23/13 02/14/20 History amLODIPine BESYLATE [Norvasc] 10 mg PO HS 08/09/17 02/14/20 History Acetaminophen Tab [Tylenol] 650 mg PO Q6H PRN 02/14/20 02/14/20 History Allopurinol [Zyloprim] 300 mg PO DAILY 02/14/20 02/14/20 History Aspirin EC [Ecotrin Low Dose] 81 mg PO DAILY 02/14/20 02/14/20 History Carvedilol [Coreg] 25 mg PO BID 02/14/20 02/14/20 History Furosemide [Lasix] 40 mg PO DAILY 02/14/20 02/14/20 History Insulin Glargine,Hum.rec.anlog 30 unit SQ HS 02/14/20 02/14/20 History [Lantus Solostar] Insulin Lispro [humaLOG Kwikpen] 28 unit SQ AC-TID 02/14/20 02/14/20 History Rosuvastatin Calcium [Crestor] 5 mg PO DAILY 02/14/20 02/14/20 History hydrALAZINE HCL [Apresoline] 25 mg PO TID 02/14/20 02/14/20 History Allergies Allergy/AdvReac Type Severity Reaction Status Date / Time No Known Allergies Allergy Verified 02/14/20 15:17 Physical Exam Vitals: Vital Signs Temp Pulse Pulse Resp BP BP Pulse Ox 02/15/20 11:00 98.9 F 62 17 137/64 97 02/15/20 05:15 97.8 F 56 L 16 124/63 94 L 02/14/20 22:26 97.7 F 60 20 135/61 93 L 02/14/20 21:09 92 L 02/14/20 20:00 60 20 02/14/20 18:35 97.0 F L 78 18 144/65 93 L 02/14/20 15:33 58 L 26 H 144/83 92 L 02/14/20 14:00 28 H 02/14/20 13:57 94 L 02/14/20 13:50 99.3 F 66 24 151/68 90 L Intake and Output 02/14/20 02/15/20 02/15/20 22:59 06:59 14:59 Intake Total 60 590 Balance 60 590 Intake: Oral 60 590 Other: Voiding Method Bedside Commode Bedside Commode Diaper Diaper Incontinent Incontinent # Voids 3 # Bowel Movements 1 3 Weight 81.445 kg 81.445 kg GENERAL EXAM: Alert, very pleasant, 84-year-old white female, 3 liters of oxygen the pulse ox of 97%, comfortable in no apparent distress. HEAD: Normocephalic/atraumatic. EYES: Normal reaction of pupils, equal size. Conjunctiva pink, sclera white. NOSE: Clear with pink turbinates. THROAT: No erythema or exudates. NECK: No masses, no JVD, no thyroid enlargement, no adenopathy. CHEST: No chest wall deformity. Symmetrical expansion. LUNGS: Equal air entry with mild crackles bilateral bases CVS: Regular rate and rhythm, normal S1 and S2, no gallops, no murmurs, no rubs ABDOMEN: Soft, nontender. No hepatosplenomegaly, normal bowel sounds, no guarding or rigidity. EXTREMITIES: No clubbing, no edema, no cyanosis, 2+ pulses and upper and lower extremities. MUSCULOSKELETAL: Muscle strength and tone normal. SPINE: No scoliosis or deformity SKIN: No rashes CENTRAL NERVOUS SYSTEM: Alert and oriented -3. No focal deficits, tone is normal in all 4 extremities. PSYCHIATRIC: Alert and oriented -3. Appropriate affect. Intact judgment and insight. Results - Laboratory Findings CBC and BMP: 02/15/20 04:51 02/15/20 04:51 PT/INR, D-dimer PT 10.4 sec (9.0-12.0) 02/14/20 14:22 INR 1.0 (<1.2) 02/14/20 14:22 D-Dimer 1.67 mg/L FEU (<0.60) H 02/14/20 14:22 Abnormal lab findings: Abnormal Labs 02/14/20 02/14/20 02/14/20 14:22 14:22 14:22 RBC 3.44 L Hgb 11.2 L Hct 33.2 L Neutrophils # 8.6 H Lymphocytes # 0.8 L D-Dimer Sodium 131 L Potassium 5.2 H Carbon Dioxide BUN 61 H Creatinine 2.20 H Est GFR (CKD-EPI)AfAm Est GFR (CKD-EPI)NonAf BUN/Creatinine Ratio Glucose 57 L POC Glucose (mg/dL) Calcium AST 42 H Lactate Dehydrogenase 1000 H C-Reactive Protein 79.0 H Coronavirus (PCR) Detected A 02/14/20 02/14/20 02/14/20 14:22 15:11 15:31 RBC Hgb Hct Neutrophils # Lymphocytes # D-Dimer 1.67 H Sodium Potassium Carbon Dioxide BUN Creatinine Est GFR (CKD-EPI)AfAm Est GFR (CKD-EPI)NonAf BUN/Creatinine Ratio Glucose POC Glucose (mg/dL) 56 L 175 H Calcium AST Lactate Dehydrogenase C-Reactive Protein Coronavirus (PCR) 02/14/20 02/14/20 02/15/20 16:33 20:10 04:51 RBC 3.13 L Hgb 10.3 L Hct 31.3 L Neutrophils # Lymphocytes # 0.5 L D-Dimer Sodium Potassium Carbon Dioxide BUN Creatinine Est GFR (CKD-EPI)AfAm Est GFR (CKD-EPI)NonAf BUN/Creatinine Ratio Glucose POC Glucose (mg/dL) 119 H 309 H Calcium AST Lactate Dehydrogenase C-Reactive Protein Coronavirus (PCR) 02/15/20 02/15/20 02/15/20 04:51 07:02 10:42 RBC Hgb Hct Neutrophils # Lymphocytes # D-Dimer Sodium 126 L Potassium 5.8 H Carbon Dioxide 19.2 L BUN 74.0 H Creatinine 2.3 H Est GFR (CKD-EPI)AfAm 21.9 L Est GFR (CKD-EPI)NonAf 18.9 L BUN/Creatinine Ratio 32.17 H Glucose 401 H POC Glucose (mg/dL) 427 H 528 H Calcium 8.1 L AST Lactate Dehydrogenase C-Reactive Protein Coronavirus (PCR) 02/15/20 10:43 RBC Hgb Hct Neutrophils # Lymphocytes # D-Dimer Sodium Potassium Carbon Dioxide BUN Creatinine Est GFR (CKD-EPI)AfAm Est GFR (CKD-EPI)NonAf BUN/Creatinine Ratio Glucose POC Glucose (mg/dL) 504 H Calcium AST Lactate Dehydrogenase C-Reactive Protein Coronavirus (PCR) - Diagnostic Findings Chest x-ray: report reviewed, image reviewed Assessment and Plan Plan: Assessment: #1. Acute hypoxic respiratory failure related to COVID 19 pneumonitis and mild pulmonary vascular congestion, related to acute exacerbation of diastolic CHF #2. Recent hospitalization for diastolic CHF exacerbation at [facility] discharged on 02/09/2020 #3. Low-grade fever, productive cough related to COVID 19 infection #4. Acute kidney injury #5. History of COPD is not oxygen dependent at baseline #6. Obese mellitus with the diabetic neuropathy #7. Hypertension #8. Hyperlipidemia #9. Hypothyroidism #10. Chronic adrenal insufficiency, on Cortef 10 mg in the morning and 20 mg at bedtime on a regular basis #11. Lifetime nonsmoker Plan: Continue with the Decadron, continue diuretics, obtain records from [facility], continue supportive treatment for now, repeat chest x-ray in the morning, continue prophylactic dose Lovenox, would stop antibiotics, and pro-calcitonin level is low. Continue to follow I performed a history & physical examination of the patient and discussed their management with my nurse practitioner, Stella Odom. I reviewed the nurse practitioner's note and agree with the documented findings and plan of care. Lung sounds are positive for diminished breath sounds. The findings and the impression was discussed with the patient. I attest to the documentation by the nurse practitioner. Time with Patient: Greater than 30
--- NOTE | 2020-02-15 14:18 | PN ---
PROGRESS NOTE Patient is seen for followup for acute kidney injury. Serum creatinine staying at about 2.2 to 2.3 mg/dL. The patient is admitted to the hospital with COVID-19 infection. She is stable. She denies any significant shortness of breath. She is also being diuresed and maintained on IV Lasix. PHYSICAL EXAMINATION: On examination today, blood pressure was 137/64, heart rate 62 per minute. She is afebrile. Examination of the lower extremities shows no significant edema. Abdomen is soft, nontender. LABS: Labs show hemoglobin 10.3, sodium 126, potassium 5.8, BUN of 74, serum creatinine 2.3 mg/dL. ASSESSMENT: 1. Acute kidney injury. Renal function about the same with serum creatinine at 2.2- 2.3 mg/dL. UA is not available. Check ultrasound of the kidneys also, rule out underlying hydronephrosis. We need to check accurate I's and O's and check postvoid scan, rule out urine retention. 2. Hyperkalemia associated with acute kidney injury. Rule out urinary retention. No active gastrointestinal bleed noted at this time. 3. Hyponatremia. Sodium dropped from 131 yesterday to 126 today. The patient appears mildly hypervolemic. I will continue with the Lasix. Check random urine osmolality. Encourage increased oral intake, particularly protein. 4. COVID-19 infection, maintained on steroids. PLAN: Treat hyperkalemia with insulin and D50. Maintain low-potassium diet. Continue with IV Lasix. Check bladder scan. Rule out urine retention. Repeat sodium this evening. Continue with IV Lasix. MMODL / IJN: [id number] /
[2020-02-15 14:29] LABS: Glucose,Whole Blood 475 mg/dL (75-99)
[2020-02-15 14:29] LABS: Glucose,Whole Blood 550 mg/dL (75-99)
[2020-02-15 15:57] LABS: Glucose,Whole Blood 503 mg/dL (75-99); Glucose,Whole Blood 523 mg/dL (75-99)
[2020-02-15] MEDS ORDERED: INSULIN REGULAR 100 UNIT/ML VIAL (IV) IV ONE ×2 (16:11→18:17)
[2020-02-15] MEDS: SODIUM CHLORIDE 0.9% 1,000 ML IV SCH (16:30)
[2020-02-15 17:21] LABS: Glucose,Whole Blood 526 mg/dL (75-99)
[2020-02-15 17:21] LABS: Glucose,Whole Blood 479 mg/dL (75-99)
[2020-02-15 19:18] LABS: Potassium 4.9 mmol/L (3.5-5.1)
[2020-02-15 20:39] LABS: Glucose,Whole Blood 423 mg/dL (75-99)
[2020-02-15] MEDS: INSULIN DETEMIR (LEVEMIR) 100 UNIT/ML SYR SQ SCH (20:44)
[2020-02-15] MEDS: HYDROCORTISONE 20 MG TAB PO SCH (20:45)
[2020-02-16] MEDS: FUROSEMIDE 10 MG/ML 4 ML VIAL IV SCH ×2 (03:22→14:02)
[2020-02-16] MEDS: LEVOTHYROXINE 137 MCG TAB PO SCH (05:39)
[2020-02-16 06:57] LABS: Basophils % (A) 0 %; Eosinophils % (A) 0 %; HCT 33.7 % (34.0-46.0); HGB 10.8 gm/dL (11.4-16.0); Lymphocytes # (A) 0.6 k/uL (1.0-4.8); Lymphocytes % (A) 3 %; MCH 31.5 pg (25.0-35.0); MCHC 32.1 g/dL (31.0-37.0); MCV 98.2 fL (80.0-100.0); Mean Platelet Volume 7.9; Monocytes # (A) 0.5 k/uL (0-1.0); Monocytes % (A) 3 %; Neutrophils # (A) 15.2 k/uL (1.3-7.7); Neutrophils % (A) 93 %; Platelet Count 215 k/uL (150-450); RBC 3.43 m/uL (3.80-5.40); RDW 14.4 % (11.5-15.5); WBC 16.4 k/uL (3.8-10.6)
[2020-02-16 07:17] LABS: Glucose,Whole Blood 394 mg/dL (75-99)
--- NOTE | 2020-02-16 07:54 | XR ---
EXAMINATION TYPE: XR chest 1V portable DATE OF EXAM: 02/16/2020 COMPARISON: 02/14/2020 INDICATION: Covid 19 TECHNIQUE: Single frontal view of the chest is obtained. FINDINGS: The heart size is enlarged. The pulmonary vasculature is prominent. Patchy infiltrates are present bilaterally. Findings are worsening. Advanced degenerative joint robb es at the right shoulder. IMPRESSION: 1. Worsening bilateral lung infiltrates
[2020-02-16] MEDS: hydrALAZINE HCL 25 MG TAB PO SCH ×3 (07:58→21:19)
[2020-02-16] MEDS: carvediloL 12.5 MG TAB PO SCH ×2 (07:59→17:30)
[2020-02-16] MEDS: ZINC SULFATE 220 MG CAP PO SCH (07:59)
[2020-02-16] MEDS: dexAMETHasone 2 MG TAB PO SCH (07:59)
[2020-02-16] MEDS: ASPIRIN 81 MG PO SCH (07:59)
[2020-02-16] MEDS: ASCORBIC ACID 500 MG TAB PO SCH (07:59)
[2020-02-16] MEDS: ATORVASTATIN 10 MG TAB PO SCH (08:00)
[2020-02-16] MEDS: allopurinoL 100 MG TAB PO SCH (08:00)
[2020-02-16] MEDS: ENOXAPARIN 30 MG/0.3 ML SYRINGE SQ SCH (08:00)
[2020-02-16] MEDS: INSULIN ASPART (NovoLOG) 100 UNIT/ML VIAL SQ SCH ×8 (08:01→21:19)
[2020-02-16] MEDS: HYDROCORTISONE 10 MG TAB PO SCH (08:05)
[2020-02-16] MEDS: CHOLECALCIFEROL 400 UNIT TAB PO SCH (08:05)
[2020-02-16] MEDS: ALBUTEROL HFA INHALER INHALATION SCH ×3 (08:30→19:37)
[2020-02-16 10:58] LABS: Glucose,Whole Blood 383 mg/dL (75-99)
[2020-02-16 11:30] LABS: African American GFR (CKD) 23.1 (60.0-200.0); Albumin 4.1 g/dL (3.80-4.90); Albumin/Globulin Ratio 1.58 (1.60-3.17); Anion Gap 9.2 mmol/L (4.00-12.00); BUN/Creat Ratio 39.09 Ratio (12.00-20.00); C Reactive Protein 7.5 mg/dL (0.0-0.8); Calcium 8.7 mg/dL (8.7-10.3); Carbon Dioxide 22.8 mmol/L (21.6-31.8); Globulin 2.6 g/dL (1.6-3.3); Non-African American GFR(CKD) 19.9 (60.0-200.0); Total Bilirubin 0.3 mg/dL (0.3-1.2); Total Protein 6.7 g/dL (6.2-8.2)
--- NOTE | 2020-02-16 12:02 | P.PN ---
Subjective This is an 84-year-old female patient of Dr. Jacques, with a past medical history of diastolic congestive heart failure, COPD, hypothyroidism, adrenal insufficiency, hypertension and diabetes. Patient was recently admitted to [facility] for complaints of shortness of breath and was treated for a CHF exacerbation. She was discharged home on 02/08. Patient returned back to the emergency department with low-grade fever, productive cough and worsening shortness of breath. Patient was tested for Covid 19 in the emergency department, and was positive. Chest x-ray showed congestive heart failure, right upper lobe and right lower lobe pneumonia. Troponins were negative 2, wbc 8.1, hemoglobin 10.3, sodium 126, potassium 5.8, BUN 74, creatinine 2.3. Cardiology, nephrology, pulmonary have been consulted. Patient currently 97% on 3 L via nasal cannula, vital signs are stable. 02/15: Patient evaluated, noted to laying in bed. Patient reports more difficulty breathing and more short of breath today. Repeat x-ray shows worsening bilateral lung infiltrates. She continues on Decadron 6 mg, along with Lasix 40 mg IV push every 12 hours. Pro-calcitonin was low at 0.08, antibiotics were discontinued. Pulmonary continues to follow, patient may benefit from Remdesivir or convalescent plasma. Patient is requiring 4 L via nasal cannula and is saturating upper 80s to lower 90s. Echocardiogram is pending, repeat chest x-ray tomorrow morning. Objective - Vital Signs Vital signs: Vital Signs Temp 98.9 F 02/16/20 11:00 Pulse 65 02/16/20 11:00 Resp 17 02/16/20 11:00 BP 153/58 02/16/20 11:00 Pulse Ox 90 L 02/16/20 11:00 Intake & Output 02/15/20 02/16/20 02/16/20 18:59 06:59 18:59 Intake Total 650 600 Output Total 800 Balance 650 600 -800 Weight 81.445 kg 88 kg Intake: Intake, IV Titration 50 240 Amount Sodium Chloride 0.9% 1, 240 000 ml @ 20 mls/hr IV . Q24H [place] Rx#:[id number] cefTRIAXone 2 gm In 50 Sodium Chloride 0.9% 50 ml @ 100 mls/hr IVPB Q24HR [place] Rx#:[id number] Oral 600 360 Output: Urine 800 Other: Voiding Method Bedside Commode Bedside Commode Bedside Commode Diaper Diaper Diaper Incontinent Incontinent Incontinent # Voids 1 - Exam - Constitutional General appearance: cooperative, mild distress, obese - EENT Eyes: EOMI, PERRLA, normal appearance ENT: hearing grossly normal, normal oropharynx, no pharyngeal erythema, no thrush - Neck Neck: no lymphadenopathy, normal ROM, no rigidity, no thyromegaly - Respiratory Respiratory: bilateral: diminished, rhonchi, negative: dullness, rales, wheezing - Cardiovascular Rhythm: regular Heart sounds: normal: S1, S2 leg Peripheral Edema: bilateral: 3+ - Gastrointestinal General gastrointestinal: no distended, no hepatomegaly, normal bowel sounds, no organomegaly, no splenomegaly, no tenderness - Neurologic Neurologic: CNII-XII intact - Musculoskeletal Musculoskeletal: generalized weakness, strength equal bilaterally, no right sided weakness, no left sided weakness - Psychiatric Psychiatric: A&O x's 3, appropriate affect - Labs CBC & Chem 7: 02/16/20 06:21 02/16/20 06:21 Labs: Abnormal Lab Results - Last 24 Hours (Table) 02/15/20 02/15/20 02/15/20 Range/Units 04:51 14:26 14:27 WBC (3.8-10.6) k/uL RBC (3.80-5.40) m/uL Hgb (11.4-16.0) gm/dL Hct (34.0-46.0) % Neutrophils # (1.3-7.7) k/uL Lymphocytes # (1.0-4.8) k/uL D-Dimer (<0.60) mg/L FEU Sodium (137-145) mmol/L Carbon Dioxide (22-30) mmol/L BUN (9.0-27.0) mg/dL Creatinine (0.6-1.5) mg/dL Est GFR (CKD-EPI)AfAm (60.0-200.0) Est GFR (CKD-EPI)NonAf (60.0-200.0) BUN/Creatinine Ratio (12.00-20.00) Ratio Glucose (70-110) mg/dL POC Glucose (mg/dL) 550 H 475 H (75-99) mg/dL Hemoglobin A1c 7.4 H (4.0-6.0) % AST (13-35) U/L Lactate Dehydrogenase (120-246) U/L C-Reactive Protein (0.0-0.8) mg/dL Albumin/Globulin Ratio (1.60-3.17) g/dL 02/15/20 02/15/20 02/15/20 Range/Units 14:35 15:55 15:55 WBC (3.8-10.6) k/uL RBC (3.80-5.40) m/uL Hgb (11.4-16.0) gm/dL Hct (34.0-46.0) % Neutrophils # (1.3-7.7) k/uL Lymphocytes # (1.0-4.8) k/uL D-Dimer (<0.60) mg/L FEU Sodium 128 L (137-145) mmol/L Carbon Dioxide (22-30) mmol/L BUN (9.0-27.0) mg/dL Creatinine (0.6-1.5) mg/dL Est GFR (CKD-EPI)AfAm (60.0-200.0) Est GFR (CKD-EPI)NonAf (60.0-200.0) BUN/Creatinine Ratio (12.00-20.00) Ratio Glucose (70-110) mg/dL POC Glucose (mg/dL) 503 H 523 H (75-99) mg/dL Hemoglobin A1c (4.0-6.0) % AST (13-35) U/L Lactate Dehydrogenase (120-246) U/L C-Reactive Protein (0.0-0.8) mg/dL Albumin/Globulin Ratio (1.60-3.17) g/dL 02/15/20 02/15/20 02/15/20 Range/Units 17:19 17:20 18:51 WBC (3.8-10.6) k/uL RBC (3.80-5.40) m/uL Hgb (11.4-16.0) gm/dL Hct (34.0-46.0) % Neutrophils # (1.3-7.7) k/uL Lymphocytes # (1.0-4.8) k/uL D-Dimer (<0.60) mg/L FEU Sodium 131 L (137-145) mmol/L Carbon Dioxide 16 L (22-30) mmol/L BUN (9.0-27.0) mg/dL Creatinine (0.6-1.5) mg/dL Est GFR (CKD-EPI)AfAm (60.0-200.0) Est GFR (CKD-EPI)NonAf (60.0-200.0) BUN/Creatinine Ratio (12.00-20.00) Ratio Glucose (70-110) mg/dL POC Glucose (mg/dL) 526 H 479 H (75-99) mg/dL Hemoglobin A1c (4.0-6.0) % AST (13-35) U/L Lactate Dehydrogenase (120-246) U/L C-Reactive Protein (0.0-0.8) mg/dL Albumin/Globulin Ratio (1.60-3.17) g/dL 02/15/20 02/16/20 02/16/20 Range/Units 20:38 06:21 06:21 WBC 16.4 H (3.8-10.6) k/uL RBC 3.43 L (3.80-5.40) m/uL Hgb 10.8 L (11.4-16.0) gm/dL Hct 33.7 L (34.0-46.0) % Neutrophils # 15.2 H (1.3-7.7) k/uL Lymphocytes # 0.6 L (1.0-4.8) k/uL D-Dimer (<0.60) mg/L FEU Sodium 132 L (137-145) mmol/L Carbon Dioxide (22-30) mmol/L BUN 86.0 H (9.0-27.0) mg/dL Creatinine 2.2 H (0.6-1.5) mg/dL Est GFR (CKD-EPI)AfAm 23.1 L (60.0-200.0) Est GFR (CKD-EPI)NonAf 19.9 L (60.0-200.0) BUN/Creatinine Ratio 39.09 H (12.00-20.00) Ratio Glucose 384 H (70-110) mg/dL POC Glucose (mg/dL) 423 H (75-99) mg/dL Hemoglobin A1c (4.0-6.0) % AST 38 H (13-35) U/L Lactate Dehydrogenase 503 H (120-246) U/L C-Reactive Protein 7.5 H (0.0-0.8) mg/dL Albumin/Globulin Ratio 1.58 L (1.60-3.17) g/dL 02/16/20 02/16/20 02/16/20 Range/Units 06:21 07:15 10:57 WBC (3.8-10.6) k/uL RBC (3.80-5.40) m/uL Hgb (11.4-16.0) gm/dL Hct (34.0-46.0) % Neutrophils # (1.3-7.7) k/uL Lymphocytes # (1.0-4.8) k/uL D-Dimer 0.88 H (<0.60) mg/L FEU Sodium (137-145) mmol/L Carbon Dioxide (22-30) mmol/L BUN (9.0-27.0) mg/dL Creatinine (0.6-1.5) mg/dL Est GFR (CKD-EPI)AfAm (60.0-200.0) Est GFR (CKD-EPI)NonAf (60.0-200.0) BUN/Creatinine Ratio (12.00-20.00) Ratio Glucose (70-110) mg/dL POC Glucose (mg/dL) 394 H 383 H (75-99) mg/dL Hemoglobin A1c (4.0-6.0) % AST (13-35) U/L Lactate Dehydrogenase (120-246) U/L C-Reactive Protein (0.0-0.8) mg/dL Albumin/Globulin Ratio (1.60-3.17) g/dL Microbiology - Last 24 Hours (Table) 02/14/20 14:22 Blood Culture - Preliminary Blood No Growth after 24 hours 02/14/20 14:22 Blood Culture - Preliminary Blood No Growth after 24 hours Assessment and Plan Plan: 1. Acute hypoxic respiratory failure. Combination of COVID 19 pneumonia along with acute on chronic diastolic heart failure. Patient started on Lasix 40 mg twice a day, dexamethasone,Lovenox, IV ceftriaxone and azithromycin discontinued since pro-calcitonin is low, updraft treatments, pulmonary as well as cardiology on consult, may benefit from Remdesivir or convalescent plasma 2. Covid 19 pneumonia. Pulmonary on consult, continue dexamethasone 6 mg daily, supplemental oxygen 3. Acute on chronic diastolic heart failure. Cardiology on consult, continue Lasix 40 mg twice a day IV, and Coreg 25 mg twice a day, and hydralazine 25 mg 3 times a day, I&Os 4. Acute kidney injury on chronic kidney disease stage III. We'll continue to watch kidney function closely, nephrology on consult 5. COPD. Continue updraft treatments 6. Hypertension. Continue Coreg 25 mg twice a day as well as hydralazine 25 mg 3 times a day 7. Hypothyroidism. Continue levothyroxine 137 g daily 8. Adrenal insufficiency continue Cortef 25 mg at bedtime, 10 mg in the morning 9. Diabetes mellitus type 2. Levemir 30 units at bedtime along with NovoLog 3 units with meals plus Accu-Cheks sliding scale coverage 10. Hyperlipidemia. Continue atorvastatin 10 mg daily 11. History of gout. No current exacerbation, resume allopurinol 300 mg daily 12. GI prophylaxis. Pantoprazole 13. DVT prophylaxis. Lovenox The above impression and plan of care have been discussed and directed by signing physician. Lilliana Waldron nurse practitioner acting as scribe for signing physician.
--- NOTE | 2020-02-16 12:07 | ECHOF ---
Referral Reason:Heart Failure MEASUREMENTS -------- HEIGHT: 152.4 cm WEIGHT: 81.2 kg BP: IVSd: 1.1 cm (0.6 - 1.1) LVIDd: 4.8 cm (3.9 - 5.3) LVPWd: 1.4 cm (0.6 - 1.1) IVSs: 1.5 cm LVIDs: 3.7 cm LVPWs: 1.8 cm MV E Jono: 1.45 m/s MV DecT: 308 ms MV A Jono: 0.99 m/s MV E/A Ratio: 1.46 AV maxP.58 mmHg AV meanP.08 mmHg RAP: 5.00 mmHg RVSP: 42.94 mmHg FINDINGS -------- Sinus rhythm. Covid 19 patient. The left ventricular size is normal. There is mild concentric left ventricular hypertrophy. Overa ll left ventricular systolic function is low-normal with, an EF between 50 - 55 %. The right ventricle is mildly enlarged. The left atrium is mildly dilated. The right atrial size is normal. xx ml of Lumason was utilized for enhancement of images. The aortic valve was not well visualized. There is moderate aortic stenosis present. Peak/mean gr adient across the Aortic Valve is 28.58mmHg / 14.08mmHg. Mild mitral annular calcification present. Mild mitral regurgitation is present. The peak and me an MV gradients are 10.06mmHg 2.62mmHg as measured by doppler. Mild tricuspid regurgitation present. There is mild pulmonary hypertension. The right ventricular systolic pressure, as measured by Doppler, is 42.94mmHg. The pulmonic valve was not well visualized. The aortic root size is normal. Echo free space indicative of a pericardial fat pad. CONCLUSIONS -------- 1. Covid 19 patient. 2. The left ventricular size is normal. 3. There is mild concentric left ventricular hypertrophy. 4. Overall left ventricular systolic function is low-normal with, an EF between 50 - 55 %. 5. The right ventricle is mildly enlarged. 6. The left atrium is mildly dilated. 7. The right atrial size is normal. 8. xx ml of Lumason was utilized for enhancement of images. 9. The aortic valve was not well visualized. 10. There is moderate aortic stenosis present. 11. Peak/mean gradient across the Aortic Valve is 28.58mmHg / 14.08mmHg. 12. Mild mitral annular calcification present. 13. Mild mitral regurgitation is present. 14. The peak and mean MV gradients are 10.06mmHg 2.62mmHg as measured by doppler. 15. Mild tricuspid regurgitation present. 16. There is mild pulmonary hypertension. 17. The right ventricular systolic pressure, as measured by Doppler, is 42.94mmHg. 18. The pulmonic valve was not well visualized. 19. The aortic root size is normal. 20. Echo free space indicative of a pericardial fat pad. FACER OPERATOR: Karin Aponte RDCS
[2020-02-16] MEDS ORDERED: guaiFENesin-Coden 100-10MG/5ML 10 ML CUP PO PRN (12:23)
--- NOTE | 2020-02-16 12:54 | P.PN ---
Subjective Progress Note Date: 02/16/20 Principal diagnosis: Shortness of breath, hypoxia 84-year-old female patient of Dr. Isaac, with the past medical history of COPD, not oxygen dependent, diabetes mellitus type 2, chronic CHF with diastolic dysfunction, hypertension, hyperlipidemia, hypothyroidism, ch ronic adrenal insufficiency on hydrocortisone, who was recently treated at [facility] and discharged home on 02/09/2020. Patient was doing well until yesterday on 02/14/2020 when she developed shortness of breath, cough with some phlegm production, and mild fevers at home, she denied a sore throat, denied runny nose. She was brought into the hospital by her daughter. Her daughter reports that her recent admission to [facility] was for CHF exacerbation. No worsening edema, her swelling has actually improved. The status of quit 19 testing was unknown. Patient was tested in the emergency department at the time of admission was found to be positive for COVID 19. She is currently on 3 L of oxygen and a pulse ox of 97%, hemodynamically she is stable, she's been afebrile while in the hospital. Admission labs showed a white cell count of 10.4, hemoglobin of 11.2, lymphocyte, 0.8, d-dimer 1.67, sodium is 131, potassium is 5.2, chloride is 100, BUN of 61 creatinine is 2.2, LDH was elevated at 1000, troponin was negative 2 at less than 0.012, CRP was 79, proBNP was 2490, pro-calcitonin was negative at 0.08. Her chest x-ray shows pulmonary vessel congestion and pulmonary interstitial edema. The heart is enlarged, and there is some mild blunting of the costophrenic angles, and there is poor inspiration. She was started on antibiotics for possibility of chlamydia, pneumonia in the form of azithromycin and Rocephin. She is on oral Decadron 6 mg daily, and IV Lasix of 40 mg twice daily. On 02/16/2020 patient seen in follow-up on medical surgical floor, patient is more short of breath today, she is currently on 3 L of oxygen her pulse ox is 86%, FiO2 was increased to 4 L, her pulse ox is 90-93%, patient is afebrile, but she sounds very congested, with diffuse rhonchi and crackles. Today's chest x- ray has been reviewed showing worsening bilateral lung infiltrates. Patient continues on IV Lasix at 40 mg every 12 hours, no significant lower extremity edema, her pro-calcitonin level was low at 0.08, we did discontinue her antibiotics yesterday however in view of worsening pulmonary infiltrates increasing shortness of breath and possibility of underlying healthcare acquired pneumonia we'll go ahead and place the patient back on Zosyn. Objective - Vital Signs Vital signs: Vital Signs Temp 98.9 F 02/16/20 11:00 Pulse 65 02/16/20 11:00 Resp 17 02/16/20 11:00 BP 153/58 02/16/20 11:00 Pulse Ox 90 L 02/16/20 11:00 Intake & Output 02/15/20 02/16/20 02/16/20 18:59 06:59 18:59 Intake Total 650 600 Output Total 800 Balance 650 600 -800 Weight 81.445 kg 88 kg Intake: Intake, IV Titration 50 240 Amount Sodium Chloride 0.9% 1, 240 000 ml @ 20 mls/hr IV . Q24H [place] Rx#:[id number] cefTRIAXone 2 gm In 50 Sodium Chloride 0.9% 50 ml @ 100 mls/hr IVPB Q24HR [place] Rx#:[id number] Oral 600 360 Output: Urine 800 Other: Voiding Method Bedside Commode Bedside Commode Bedside Commode Diaper Diaper Diaper Incontinent Incontinent Incontinent # Voids 1 - Exam GENERAL EXAM: Alert, very pleasant, 84-year-old white female, on 3 L of oxygen with a pulse ox of 86%, dyspneic, congested comfortable in no apparent distress. HEAD: Normocephalic/atraumatic. EYES: Normal reaction of pupils, equal size. Conjunctiva pink, sclera white. NOSE: Clear with pink turbinates. THROAT: No erythema or exudates. NECK: No masses, no JVD, no thyroid enlargement, no adenopathy. CHEST: No chest wall deformity. Symmetrical expansion. LUNGS: Equal air entry with diffuse rhonchi and crackles CVS: Regular rate and rhythm, normal S1 and S2, no gallops, no murmurs, no rubs ABDOMEN: Soft, nontender. No hepatosplenomegaly, normal bowel sounds, no guarding or rigidity. EXTREMITIES: No clubbing, no edema, no cyanosis, 2+ pulses and upper and lower extremities. MUSCULOSKELETAL: Muscle strength and tone normal. SPINE: No scoliosis or deformity SKIN: No rashes CENTRAL NERVOUS SYSTEM: Alert and oriented -3. No focal deficits, tone is normal in all 4 extremities. PSYCHIATRIC: Alert and oriented -3. Appropriate affect. Intact judgment and insight. - Labs CBC & Chem 7: 02/16/20 06:21 02/16/20 06:21 Labs: Abnormal Lab Results - Last 24 Hours (Table) 02/15/20 02/15/20 02/15/20 Range/Units 04:51 14:26 14:27 WBC (3.8-10.6) k/uL RBC (3.80-5.40) m/uL Hgb (11.4-16.0) gm/dL Hct (34.0-46.0) % Neutrophils # (1.3-7.7) k/uL Lymphocytes # (1.0-4.8) k/uL D-Dimer (<0.60) mg/L FEU Sodium (137-145) mmol/L Carbon Dioxide (22-30) mmol/L BUN (9.0-27.0) mg/dL Creatinine (0.6-1.5) mg/dL Est GFR (CKD-EPI)AfAm (60.0-200.0) Est GFR (CKD-EPI)NonAf (60.0-200.0) BUN/Creatinine Ratio (12.00-20.00) Ratio Glucose (70-110) mg/dL POC Glucose (mg/dL) 550 H 475 H (75-99) mg/dL Hemoglobin A1c 7.4 H (4.0-6.0) % AST (13-35) U/L Lactate Dehydrogenase (120-246) U/L C-Reactive Protein (0.0-0.8) mg/dL Albumin/Globulin Ratio (1.60-3.17) g/dL 02/15/20 02/15/20 02/15/20 Range/Units 14:35 15:55 15:55 WBC (3.8-10.6) k/uL RBC (3.80-5.40) m/uL Hgb (11.4-16.0) gm/dL Hct (34.0-46.0) % Neutrophils # (1.3-7.7) k/uL Lymphocytes # (1.0-4.8) k/uL D-Dimer (<0.60) mg/L FEU Sodium 128 L (137-145) mmol/L Carbon Dioxide (22-30) mmol/L BUN (9.0-27.0) mg/dL Creatinine (0.6-1.5) mg/dL Est GFR (CKD-EPI)AfAm (60.0-200.0) Est GFR (CKD-EPI)NonAf (60.0-200.0) BUN/Creatinine Ratio (12.00-20.00) Ratio Glucose (70-110) mg/dL POC Glucose (mg/dL) 503 H 523 H (75-99) mg/dL Hemoglobin A1c (4.0-6.0) % AST (13-35) U/L Lactate Dehydrogenase (120-246) U/L C-Reactive Protein (0.0-0.8) mg/dL Albumin/Globulin Ratio (1.60-3.17) g/dL 02/15/20 02/15/20 02/15/20 Range/Units 17:19 17:20 18:51 WBC (3.8-10.6) k/uL RBC (3.80-5.40) m/uL Hgb (11.4-16.0) gm/dL Hct (34.0-46.0) % Neutrophils # (1.3-7.7) k/uL Lymphocytes # (1.0-4.8) k/uL D-Dimer (<0.60) mg/L FEU Sodium 131 L (137-145) mmol/L Carbon Dioxide 16 L (22-30) mmol/L BUN (9.0-27.0) mg/dL Creatinine (0.6-1.5) mg/dL Est GFR (CKD-EPI)AfAm (60.0-200.0) Est GFR (CKD-EPI)NonAf (60.0-200.0) BUN/Creatinine Ratio (12.00-20.00) Ratio Glucose (70-110) mg/dL POC Glucose (mg/dL) 526 H 479 H (75-99) mg/dL Hemoglobin A1c (4.0-6.0) % AST (13-35) U/L Lactate Dehydrogenase (120-246) U/L C-Reactive Protein (0.0-0.8) mg/dL Albumin/Globulin Ratio (1.60-3.17) g/dL 02/15/20 02/16/20 02/16/20 Range/Units 20:38 06:21 06:21 WBC 16.4 H (3.8-10.6) k/uL RBC 3.43 L (3.80-5.40) m/uL Hgb 10.8 L (11.4-16.0) gm/dL Hct 33.7 L (34.0-46.0) % Neutrophils # 15.2 H (1.3-7.7) k/uL Lymphocytes # 0.6 L (1.0-4.8) k/uL D-Dimer (<0.60) mg/L FEU Sodium 132 L (137-145) mmol/L Carbon Dioxide (22-30) mmol/L BUN 86.0 H (9.0-27.0) mg/dL Creatinine 2.2 H (0.6-1.5) mg/dL Est GFR (CKD-EPI)AfAm 23.1 L (60.0-200.0) Est GFR (CKD-EPI)NonAf 19.9 L (60.0-200.0) BUN/Creatinine Ratio 39.09 H (12.00-20.00) Ratio Glucose 384 H (70-110) mg/dL POC Glucose (mg/dL) 423 H (75-99) mg/dL Hemoglobin A1c (4.0-6.0) % AST 38 H (13-35) U/L Lactate Dehydrogenase 503 H (120-246) U/L C-Reactive Protein 7.5 H (0.0-0.8) mg/dL Albumin/Globulin Ratio 1.58 L (1.60-3.17) g/dL 02/16/20 02/16/20 02/16/20 Range/Units 06:21 07:15 10:57 WBC (3.8-10.6) k/uL RBC (3.80-5.40) m/uL Hgb (11.4-16.0) gm/dL Hct (34.0-46.0) % Neutrophils # (1.3-7.7) k/uL Lymphocytes # (1.0-4.8) k/uL D-Dimer 0.88 H (<0.60) mg/L FEU Sodium (137-145) mmol/L Carbon Dioxide (22-30) mmol/L BUN (9.0-27.0) mg/dL Creatinine (0.6-1.5) mg/dL Est GFR (CKD-EPI)AfAm (60.0-200.0) Est GFR (CKD-EPI)NonAf (60.0-200.0) BUN/Creatinine Ratio (12.00-20.00) Ratio Glucose (70-110) mg/dL POC Glucose (mg/dL) 394 H 383 H (75-99) mg/dL Hemoglobin A1c (4.0-6.0) % AST (13-35) U/L Lactate Dehydrogenase (120-246) U/L C-Reactive Protein (0.0-0.8) mg/dL Albumin/Globulin Ratio (1.60-3.17) g/dL Microbiology - Last 24 Hours (Table) 02/14/20 14:22 Blood Culture - Preliminary Blood No Growth after 24 hours 02/14/20 14:22 Blood Culture - Preliminary Blood No Growth after 24 hours Assessment and Plan Plan: Assessment: #1. Acute hypoxic respiratory failure related to COVID 19 pneumonitis and mild pulmonary vascular congestion, the possibility for fluid overload and pos sibility of healthcare acquired pneumonia is not completely excluded #2. Recent hospitalization for diastolic CHF exacerbation at [facility] discharged on 02/09/2020 #3. Low-grade fever, productive cough related to COVID 19 infection #4. Acute kidney injury #5. History of COPD is not oxygen dependent at baseline #6. Obese mellitus with the diabetic neuropathy #7. Hypertension #8. Hyperlipidemia #9. Hypothyroidism #10. Chronic adrenal insufficiency, on Cortef 10 mg in the morning and 20 mg at bedtime on a regular basis #11. Lifetime nonsmoker Plan: We'll start the patient on Remdesivir, we will give the patient 2 units of convalescent plasma, we will add Zosyn for antibiotic coverage for possibility of healthcare acquired pneumonia. Increase oxygen flow to keep O2 sat at 90% or above, patient's daughter was contacted via phone, and updated on patient's c ondition. I performed a history & physical examination of the patient and discussed their management with my nurse practitioner, Stella Odom. I reviewed the nurse practitioner's note and agree with the documented findings and plan of care. Lung sounds are positive for diminished breath sounds. The findings and the impression was discussed with the patient. I attest to the documentation by the nurse practitioner. Time with Patient: Less than 30
[2020-02-16] MEDS ORDERED: REMDESIVIR 200 MG in SODIUM CHLORIDE 0.9% 250 ML IVPB ONE (14:00)
[2020-02-16 16:49] LABS: Glucose,Whole Blood 429 mg/dL (75-99)
--- NOTE | 2020-02-16 17:23 | PN ---
PROGRESS NOTE The patient is seen for followup for acute kidney injury. She has underlying COVID-19 infection/pneumonia. Patient's renal function is fairly stable, creatinine staying at about 2.1 to 2.2 mg/dL. Yesterday sodium had dropped to 126. However, I believe that was related to the significant hyperglycemia. Blood sugars have improved although still elevated. PHYSICAL EXAMINATION: On examination today, blood pressure was 153/58, heart rate 65 per minute. She is afebrile. Patient is mildly short of breath. Examination of lower extremities shows 1+ edema bilaterally. ABDOMEN: Soft nontender. BICYCLE SERVICE TECHNICIAN exam: Grossly intact. LABS: Labs from today show sodium 132, potassium 5.0, chloride 100, BUN 86, serum creatinine 2.2 mg/dL. ASSESSMENT: 1. Acute kidney injury, acute tubular necrosis, associated with underlying COVID infection. Renal function fairly stable. Patient has been incontinent but has had good urine output. She is maintained on IV Lasix, which we can continue for now. 2. Volume overload, maintained on IV Lasix. Will continue. 3. COVID-19 pneumonia, status post remdesivir, which will be repeated again tomorrow. Patient is also maintained on steroids. 4. Severe hyperglycinemia associated with concurrent use of steroids. Blood sugars are somewhat improved from yesterday. 5. Hyponatremia associated with severe hyperglycemia, now improved. PLAN: Continue with IV Lasix. Repeat labs in a.m. Control blood sugars. MMODL / IJN: [id number] /
[2020-02-16] MEDS: SODIUM CHLORIDE 0.9% 1,000 ML IV SCH (18:11)
[2020-02-16 21:05] LABS: Glucose,Whole Blood 291 mg/dL (75-99)
[2020-02-16] MEDS: INSULIN DETEMIR (LEVEMIR) 100 UNIT/ML SYR SQ SCH (21:18)
[2020-02-16] MEDS: HYDROCORTISONE 20 MG TAB PO SCH (21:19)
[2020-02-17 00:31] LABS: Glucose,Whole Blood 192 mg/dL (75-99)
[2020-02-17] MEDS: FUROSEMIDE 10 MG/ML 4 ML VIAL IV SCH ×2 (03:49→17:55)
[2020-02-17] MEDS: ALPRAZolam 0.25 MG TAB PO PRN ×2 (03:49→09:20)
[2020-02-17 04:34] LABS: HCT 36.8 % (34.0-46.0); HGB 12.1 gm/dL (11.4-16.0); MCH 32.1 pg (25.0-35.0); MCHC 32.8 g/dL (31.0-37.0); MCV 97.8 fL (80.0-100.0); Mean Platelet Volume 7.6; Platelet Count 255 k/uL (150-450); RBC 3.77 m/uL (3.80-5.40); RDW 14.5 % (11.5-15.5); WBC 30.5 k/uL (3.8-10.6)
[2020-02-17 04:54] LABS: ALT 50 U/L (4-34); AST 65 U/L (14-36); African American GFR (CKD) 31 (>60 ml/min/1.73 sqM); Albumin 3.9 g/dL (3.5-5.0); Albumin/Globulin Ratio 1.1; Alkaline Phosphatase 89 U/L (38-126); Anion Gap 15 mmol/L; Blood Urea Nitrogen 94 mg/dL (7-17); Calcium 9.1 mg/dL (8.4-10.2); Carbon Dioxide 17 mmol/L (22-30); Chloride 104 mmol/L (98-107); Globulin 3.5 g/dL; Glucose 165 mg/dL (74-99); Lymphocytes # (M) 0.31 k/uL (1.0-4.8); Monocytes # (M) 1.83 k/uL (0-1.0); Neutrophils # (M) 28.37 k/uL (1.3-7.7); Neutrophils % (M) 93 %; Non-African American GFR(CKD) 27 (>60 ml/min/1.73 sqM); Nucleated Red Blood Cells 0 /100 WBC (0-0); Potassium 5.2 mmol/L (3.5-5.1); Sodium 136 mmol/L (137-145); Total Bilirubin 0.4 mg/dL (0.2-1.3); Total Cells Counted 100; Total Protein 7.4 g/dL (6.3-8.2)
[2020-02-17 04:55] LABS: C Reactive Protein 67.9 mg/L (<10.0)
[2020-02-17 07:04] LABS: Glucose,Whole Blood 180 mg/dL (75-99)
[2020-02-17 07:11] LABS: Potassium 5.1 mmol/L (3.5-5.1)
[2020-02-17 07:20] LABS: HCT 38.5 % (34.0-46.0); HGB 12.2 gm/dL (11.4-16.0); MCH 31.1 pg (25.0-35.0); MCHC 31.7 g/dL (31.0-37.0); MCV 98.3 fL (80.0-100.0); Mean Platelet Volume 7.8; Platelet Count 258 k/uL (150-450); RBC 3.92 m/uL (3.80-5.40); RDW 14.8 % (11.5-15.5); WBC 34.4 k/uL (3.8-10.6)
[2020-02-17] MEDS: INSULIN ASPART (NovoLOG) 100 UNIT/ML VIAL SQ SCH ×5 (07:33→18:40)
--- NOTE | 2020-02-17 07:35 | XR ---
EXAMINATION TYPE: XR chest 1V DATE OF EXAM: 02/17/2020 COMPARISON: 02/16/2020 HISTORY: 84-year-old female, COVID improvement TECHNIQUE: Single frontal view of the chest is obtained. FINDINGS: Heart mildly enlarged. Multifocal patchy and confluent airspace disease may have minimal improvement in the midlung. No sizable effusion. IMPRESSION: Extensive multifocal patchy airspace disease persists. Minimal improvement in the right midlung.
[2020-02-17] MEDS: ALBUTEROL HFA INHALER INHALATION SCH ×3 (08:17→21:33)
[2020-02-17 08:26] LABS: Lymphocytes # (M) 0.34 k/uL (1.0-4.8); Metamyelocytes # (M) 0.34 k/uL (0); Metamyelocytes % 1 %; Monocytes # (M) 0.34 k/uL (0-1.0); Neutrophils # (M) 34.06 k/uL (1.3-7.7); Neutrophils % (M) 99 %; Nucleated Red Blood Cells 0 /100 WBC (0-0); Total Cells Counted 200
[2020-02-17 08:27] LABS: Anisocytosis (M) Present; Poikilocytosis (M) Present
[2020-02-17] MEDS ORDERED: CEFEPIME 2 GM in SODIUM CHLORIDE 0.9% 100 ML IVPB SCH (09:00)
[2020-02-17] MEDS ORDERED: FAMOTIDINE 20 MG/2 ML VIAL IV SCH (09:00)
[2020-02-17] MEDS: hydrALAZINE HCL 25 MG TAB PO SCH ×2 (09:18→18:07)
[2020-02-17] MEDS: carvediloL 12.5 MG TAB PO SCH ×2 (09:18→17:58)
[2020-02-17] MEDS: ATORVASTATIN 10 MG TAB PO SCH (09:18)
[2020-02-17] MEDS: allopurinoL 100 MG TAB PO SCH (09:18)
[2020-02-17] MEDS: dexAMETHasone 2 MG TAB PO SCH (09:18)
[2020-02-17] MEDS: ASPIRIN 81 MG PO SCH (09:19)
[2020-02-17] MEDS: LEVOTHYROXINE 137 MCG TAB PO SCH (09:19)
[2020-02-17] MEDS: ASCORBIC ACID 500 MG TAB PO SCH (09:19)
[2020-02-17] MEDS: HYDROCORTISONE 10 MG TAB PO SCH (09:20)
[2020-02-17] MEDS: ENOXAPARIN 30 MG/0.3 ML SYRINGE SQ SCH (09:20)
[2020-02-17] MEDS: CHOLECALCIFEROL 400 UNIT TAB PO SCH (09:20)
[2020-02-17] MEDS: ZINC SULFATE 220 MG CAP PO SCH (09:20)
[2020-02-17 10:08] LABS: Ferritin 309.1 ng/mL (10.0-291.0)
--- NOTE | 2020-02-17 10:28 | PN ---
PROGRESS NOTE PULMONARY/CRITICAL CARE PROGRESS NOTE: DATE OF SERVICE: February 17, 2020 Critical care time greater than 30 minutes. This is an 84-year-old female with a history of acute hypoxemic respiratory failure secondary to COVID-19 pneumonia/pneumonitis, complicated by mild pulmonary vascular congestion and fluid overload. In addition, there may be a possible associated healthcare acquired pneumonia. She had a recent hospitalization at [facility]. She was there for about 7 days from 01 of February to the , with apparent heart failure, diastolic in nature. The patient was up on the 6th floor, moved to the ICU. The patient was moved because of worsening hypoxemic respiratory failure. Currently, she is on BiPAP at 12/5 and 100%. She is getting saline at 20 mL an hour. I did talk to the daughter. Apparently, there is a number of siblings. She agrees that the patient should not be on life support. She is going to talk to her other brothers and sisters about this decision. Apparently, it is a collaborative decision amongst the various kids. I did mention that there needs to be some sort of consensus as it relates to this. In addition, she has obesity, COPD, acute kidney injury, diabetes, hypertension, hyperlipidemia, hypothyroidism, and chronic adrenal insufficiency. PHYSICAL EXAMINATION: VITAL SIGNS: Current vital signs are reviewed. Temperature is 97.6, heart rate 67, respiratory rate 30 to 35 breaths per minute, blood pressure 168/85, mean 112, saturations are in the high 80s low 90s. GENERAL: Appears mildly tachypneic and dyspneic. Respiratory rate is in the 30s. HEENT: Examination is grossly unremarkable. BiPAP mask in place. NECK: Supple. Full range of motion. No adenopathy. Neck veins are flat. CARDIOVASCULAR: Examination reveals regular rhythm and rate. Heart rate in the upper 80s. S1, S2 normal. No murmur. LUNGS: Reveal diffuse coarse rhonchi and crackles. Breath sounds equal. ABDOMEN: Soft. No masses or tenderness. EXTREMITIES: Are intact. No cyanosis, clubbing, or edema. SKIN: Without rash. NEUROLOGIC: Examination is difficult to assess. No focal deficits. She does move all 4 extremities. LAB DATA: Lab data is reviewed. White count 34.4, hemoglobin 12.2, hematocrit 38.5, platelet count 258,000. Sodium 135, potassium 5.1, chloride 104, CO2 of 19. Anion gap is 12. BUN and creatinine were 96 and 1.69. The rest of the labs are reviewed. LDH is 1751. C- reactive protein 67.9. Troponin less than 0.012. The D-dimer was 1.67. Most recent D- dimer is 0.88. Microbiology: Currently blood cultures are negative. Chest x-ray from this morning shows diffuse bilateral infiltrates with greater degrees of consolidation in the right peritracheal area, right mid lung, and left lower lobe. CURRENT MEDICATIONS: Current medications are reviewed. The patient is currently on Tylenol, albuterol inhaler, Zyloprim, Xanax, vitamin C, aspirin, Lipitor, Coreg, Maxipime, vitamin D3, Decadron, Lovenox, Pepcid, Lasix, Robitussin, hydralazine, Cortef, insulin, levothyroxine, Narcan, remdesivir, saline IV, and zinc. ASSESSMENT: 1. Acute hypoxemic respiratory failure secondary to COVID-19 pneumonitis/pneumonia, possibly complicated by mild fluid overload/congestive heart failure, as well as possible underlying healthcare acquired pneumonia. 2. Recent hospitalization for 7 or 8 days at [facility], with diastolic congestive heart failure, status post discharge on February 08. 3. Low-grade fever, likely related to COVID-19 infection and/or pneumonia. 4. Acute kidney injury. 5. History of chronic obstructive pulmonary disease. 6. Diabetes mellitus with diabetic neuropathy. 7. Essential hypertension. 8. Hyperlipidemia. 9. Hypothyroidism. 10.Chronic adrenal insufficiency. PLAN: Currently, the patient is on appropriate medications. I did have a discussion with one of the daughters about code status. She is in agreement that the patient should not be placed on life support given the severity of her disease and her age and multiple other medical problems. The daughter I spoke to is going to talk to the other family members and siblings. Currently, she is on appropriate medications. She is on the BiPAP at 100% 12/5. We will continue with the other medications. Prognosis is guarded. We will continue to follow. Critical care time greater than 30 minutes. JOHN / SAMINAN: [id number] / ERIN
[2020-02-17 10:37] LABS: Appearance,Urine Clear (Clear); Bilirubin,Urine Negative (Negative); Blood,Urine Small (Negative); Color,Urine Light Yellow; Glucose,Urine (UA) Negative (Negative); Ketones,Urine Negative (Negative); Leukocyte Esterase,Urine Negative (Negative); Mucus,Urine Rare /hpf; Nitrite,Urine Negative (Negative); Protein,Urine Trace (Negative); RBC,Urine <1 /hpf (0-5); Specific Gravity,Urine 1.008 (1.001-1.035); Squamous Epithelial Cell,Urine <1 /hpf (0-4); Urobilinogen,Urine <2.0 mg/dL (<2.0); WBC,Urine <1 /hpf (0-5)
--- NOTE | 2020-02-17 10:52 | P.PN ---
Subjective This is an 84-year-old female patient of Dr. Jacques, with a past medical history of diastolic congestive heart failure, COPD, hypothyroidism, adrenal insufficiency, hypertension and diabetes. Patient was recently admitted to [facility] for complaints of shortness of breath and was treated for a CHF exacerbation. She was discharged home on 02/08. Patient returned back to the emergency department with low-grade fever, productive cough and worsening shortness of breath. Patient was tested for Covid 19 in the emergency department, and was positive. Chest x-ray showed congestive heart failure, right upper lobe and right lower lobe pneumonia. Troponins were negative 2, wbc 8.1, hemoglobin 10.3, sodium 126, potassium 5.8, BUN 74, creatinine 2.3. Cardiology, nephrology, pulmonary have been consulted. Patient currently 97% on 3 L via nasal cannula, vital signs are stable. 02/15: Patient evaluated, noted to laying in bed. Patient reports more difficulty breathing and more short of breath today. Repeat x-ray shows worsening bilateral lung infiltrates. She continues on Decadron 6 mg, along with Lasix 40 mg IV push every 12 hours. Pro-calcitonin was low at 0.08, antibiotics were discontinued. Pulmonary continues to follow, patient may benefit from Remdesivir or convalescent plasma. Patient is requiring 4 L via nasal cannula and is saturating upper 80s to lower 90s. Echocardiogram is pending, repeat chest x-ray tomorrow morning. 02/16: Patient evaluated this morning in the ICU patient continued to have increased shortness of breath and oxygen demands are higher, she was placed on BiPAP and moved from the floor to ICU. Pulmonary did start her back on the Zosyn for possible healthcare acquired pneumonia, she was also started on Remdesivir and convalescent plasma. Repeat chest x-ray shows extensive multifocal patchy airspace disease, minimal improvement. Blood cultures show no growth to date. Objective - Vital Signs Vital signs: Vital Signs Temp 97.8 F 02/17/20 04:00 Pulse 63 02/17/20 06:00 Resp 32 H 02/17/20 06:00 BP 167/92 02/17/20 06:00 Pulse Ox 89 L 02/17/20 06:00 Intake & Output 02/16/20 02/17/20 02/17/20 18:59 06:59 18:59 Intake Total 205 340 Output Total 1200 450 Balance -995 -110 Weight 86 kg Intake: IV 40 0.9 40 Oral 300 Blood Product 205 Ffp Pher Conval Covid19 205 Acda 3 Unit [id number] Output: Urine 1200 450 Other: Voiding Method Bedside Commode Bedside Commode Diaper Diaper Incontinent Incontinent - Exam - Constitutional General appearance: cooperative, mild respiratory distress, tachypnea, obese - EENT Eyes: EOMI, PERRLA, normal appearance ENT: hearing grossly normal, normal oropharynx, no pharyngeal erythema, no thrush - Neck Neck: no lymphadenopathy, normal ROM, no rigidity, no thyromegaly - Respiratory Respiratory: bilateral: diminished, diffuse coarse rhonchi and crackles - Cardiovascular Rhythm: regular Heart sounds: normal: S1, S2 leg Peripheral Edema: bilateral: 3+ - Gastrointestinal General gastrointestinal: no distended, no hepatomegaly, normal bowel sounds, no organomegaly, no splenomegaly, no tenderness - Neurologic Neurologic: CNII-XII intact - Musculoskeletal Musculoskeletal: generalized weakness, strength equal bilaterally, no right sided weakness, no left sided weakness - Psychiatric Psychiatric: A&O x's 3, appropriate affect - Labs CBC & Chem 7: 02/17/20 06:38 02/17/20 06:37 Labs: Abnormal Lab Results - Last 24 Hours (Table) 02/16/20 02/16/20 02/16/20 Range/Units 06:21 06:21 10:57 WBC (3.8-10.6) k/uL RBC (3.80-5.40) m/uL Neutrophils # (Manual) (1.3-7.7) k/uL Lymphocytes # (Manual) (1.0-4.8) k/uL Monocytes # (Manual) (0-1.0) k/uL D-Dimer 0.88 H (<0.60) mg/L FEU Sodium 132 L (135-145) mmol/L Potassium (3.5-5.1) mmol/L Carbon Dioxide (22-30) mmol/L BUN 86.0 H (9.0-27.0) mg/dL Creatinine 2.2 H (0.6-1.5) mg/dL Est GFR (CKD-EPI)AfAm 23.1 L (60.0-200.0) Est GFR (CKD-EPI)NonAf 19.9 L (60.0-200.0) BUN/Creatinine Ratio 39.09 H (12.00-20.00) Ratio Glucose 384 H (70-110) mg/dL POC Glucose (mg/dL) 383 H (75-99) mg/dL AST 38 H (13-35) U/L ALT (4-34) U/L Lactate Dehydrogenase 503 H (120-246) U/L C-Reactive Protein 7.5 H (0.0-0.8) mg/dL Albumin/Globulin Ratio 1.58 L (1.60-3.17) g/dL 02/16/20 02/16/20 02/17/20 Range/Units 16:48 21:04 00:28 WBC (3.8-10.6) k/uL RBC (3.80-5.40) m/uL Neutrophils # (Manual) (1.3-7.7) k/uL Lymphocytes # (Manual) (1.0-4.8) k/uL Monocytes # (Manual) (0-1.0) k/uL D-Dimer (<0.60) mg/L FEU Sodium (135-145) mmol/L Potassium (3.5-5.1) mmol/L Carbon Dioxide (22-30) mmol/L BUN (9.0-27.0) mg/dL Creatinine (0.6-1.5) mg/dL Est GFR (CKD-EPI)AfAm (60.0-200.0) Est GFR (CKD-EPI)NonAf (60.0-200.0) BUN/Creatinine Ratio (12.00-20.00) Ratio Glucose (70-110) mg/dL POC Glucose (mg/dL) 429 H 291 H 192 H (75-99) mg/dL AST (13-35) U/L ALT (4-34) U/L Lactate Dehydrogenase (120-246) U/L C-Reactive Protein (0.0-0.8) mg/dL Albumin/Globulin Ratio (1.60-3.17) g/dL 02/17/20 02/17/20 02/17/20 Range/Units 04:02 04:02 04:02 WBC 30.5 H (3.8-10.6) k/uL RBC 3.77 L (3.80-5.40) m/uL Neutrophils # (Manual) 28.37 H (1.3-7.7) k/uL Lymphocytes # (Manual) 0.31 L (1.0-4.8) k/uL Monocytes # (Manual) 1.83 H (0-1.0) k/uL D-Dimer (<0.60) mg/L FEU Sodium 136 L (135-145) mmol/L Potassium 5.2 H (3.5-5.1) mmol/L Carbon Dioxide 17 L (22-30) mmol/L BUN 94 H (9.0-27.0) mg/dL Creatinine 1.72 H (0.6-1.5) mg/dL Est GFR (CKD-EPI)AfAm (60.0-200.0) Est GFR (CKD-EPI)NonAf (60.0-200.0) BUN/Creatinine Ratio (12.00-20.00) Ratio Glucose 165 H (70-110) mg/dL POC Glucose (mg/dL) (75-99) mg/dL AST 65 H (13-35) U/L ALT 50 H (4-34) U/L Lactate Dehydrogenase 1751 H (120-246) U/L C-Reactive Protein 67.9 H (0.0-0.8) mg/dL Albumin/Globulin Ratio (1.60-3.17) g/dL 02/17/20 02/17/20 02/17/20 Range/Units 06:37 06:38 07:02 WBC 34.4 H (3.8-10.6) k/uL RBC (3.80-5.40) m/uL Neutrophils # (Manual) (1.3-7.7) k/uL Lymphocytes # (Manual) (1.0-4.8) k/uL Monocytes # (Manual) (0-1.0) k/uL D-Dimer (<0.60) mg/L FEU Sodium 135 L (135-145) mmol/L Potassium (3.5-5.1) mmol/L Carbon Dioxide 19 L (22-30) mmol/L BUN 96 H (9.0-27.0) mg/dL Creatinine 1.69 H (0.6-1.5) mg/dL Est GFR (CKD-EPI)AfAm (60.0-200.0) Est GFR (CKD-EPI)NonAf (60.0-200.0) BUN/Creatinine Ratio (12.00-20.00) Ratio Glucose 180 H (70-110) mg/dL POC Glucose (mg/dL) 180 H (75-99) mg/dL AST (13-35) U/L ALT (4-34) U/L Lactate Dehydrogenase (120-246) U/L C-Reactive Protein (0.0-0.8) mg/dL Albumin/Globulin Ratio (1.60-3.17) g/dL Microbiology - Last 24 Hours (Table) 02/14/20 14:22 Blood Culture - Preliminary Blood No Growth after 48 hours 02/14/20 14:22 Blood Culture - Preliminary Blood No Growth after 48 hours Assessment and Plan Plan: 1. Acute hypoxic respiratory failure. Combination of COVID 19 pneumonia along with acute on chronic diastolic heart failure, possible underlining healthcare acquired pneumonia. Patient started on Lasix 40 mg twice a day, dexamethasone, Lovenox. She was started on Remdesivir and convalescent plasma yesterday, continues oncefepime 2. Covid 19 pneumonia with possible underlining healthcare acquired pneumonia. Pulmonary on consult, continue dexamethasone 6 mg daily, convalescent plasma and Remdesivir started yesterday, cefepime 3. Acute on chronic diastolic heart failure. Cardiology on consult, continue Lasix 40 mg twice a day IV, and Coreg 25 mg twice a day, and hydralazine 25 mg 3 times a day, I&Os 4. Acute kidney injury on chronic kidney disease stage III. We'll continue to watch kidney function closely, nephrology on consult 5. COPD. Continue updraft treatments 6. Hypertension. Continue Coreg 25 mg twice a day as well as hydralazine 25 mg 3 times a day 7. Hypothyroidism. Continue levothyroxine 137 g daily 8. Adrenal insufficiency continue Cortef 25 mg at bedtime, 10 mg in the morning 9. Diabetes mellitus type 2. Levemir 30 units at bedtime along with NovoLog 3 units with meals plus Accu-Cheks sliding scale coverage 10. Hyperlipidemia. Continue atorvastatin 10 mg daily 11. History of gout. No current exacerbation, resume allopurinol 300 mg daily 12. GI prophylaxis. Pantoprazole 13. DVT prophylaxis. Lovenox The above impression and plan of care have been discussed and directed by signing physician. Lilliana Waldron nurse practitioner acting as scribe for signing physician.
[2020-02-17 11:44] LABS: Glucose,Whole Blood 233 mg/dL (75-99)
--- NOTE | 2020-02-17 12:58 | PN ---
PROGRESS NOTE The patient is seen for followup for acute kidney injury associated with underlying COVID pneumonia and infection. Patient's respiratory status deteriorated overnight and she was transferred to the ICU. Currently patient is maintained on 100% non- rebreather. She was also on BiPAP. She is currently on BiPAP. Code status is been addressed with the family. Her chest x-ray is worse. PHYSICAL EXAMINATION: The patient is not examined. The case is discussed with nursing staff. Vital signs are reviewed. Blood pressure 135/72, heart rate 62 per minute. Patient is afebrile. O2 saturations 95% on high-flow oxygen, FiO2 currently at 100%. Lungs and heart are not examined. Patient had been moving her extremities. She is lethargic according to nursing staff. LABS: Labs show sodium 135, potassium 5.1, chloride 104, CO2 is 19. BUN 96, serum creatinine 1.69. ASSESSMENT: 1. Acute kidney injury, acute tubular necrosis, associated with underlying COVID-19 infection and pneumonia, currently nonoliguric. Estrella catheter will be placed later on today. Currently patient has good urine output. 2. Mild metabolic acidosis associated with underlying renal failure. I will hold off on the sodium bicarb for now. 3. COVID-19 pneumonia, maintained on steroids, started on remdesivir, maintained on antibiotics as well. 4. Volume overload, maintained on IV Lasix. 5. Severe hyperglycemia associated with current use of steroids currently improved. PLAN: Continue with IV Lasix. Continue treatment for underlying COVID infection and pneumonia. Overall prognosis is guarded. MMODL / IJN: [id number] /
[2020-02-17] MEDS ORDERED: REMDESIVIR 100 MG in SODIUM CHLORIDE 0.9% 250 ML IVPB SCH (14:00)
[2020-02-17] MEDS: SODIUM CHLORIDE 0.9% 1,000 ML IV SCH (18:06)
[2020-02-17 18:29] LABS: Glucose,Whole Blood 249 mg/dL (75-99)
[2020-02-18] MEDS: HYDROCORTISONE 20 MG TAB PO SCH (00:35)
[2020-02-18] MEDS: INSULIN ASPART (NovoLOG) 100 UNIT/ML VIAL SQ SCH ×3 (00:35→19:40)
[2020-02-18] MEDS: INSULIN DETEMIR (LEVEMIR) 100 UNIT/ML SYR SQ SCH (00:35)
[2020-02-18] MEDS: hydrALAZINE HCL 25 MG TAB PO SCH ×2 (00:35→09:10)
[2020-02-18 03:56] VITALS: TEMP 98.9
[2020-02-18 05:33] LABS: Basophils % (A) 0 %; Eosinophils % (A) 0 %; HCT 35.5 % (34.0-46.0); HGB 11.5 gm/dL (11.4-16.0); Lymphocytes # (A) 0.5 k/uL (1.0-4.8); Lymphocytes % (A) 2 %; MCH 31.9 pg (25.0-35.0); MCHC 32.4 g/dL (31.0-37.0); MCV 98.6 fL (80.0-100.0); Mean Platelet Volume 8.1; Monocytes # (A) 0.7 k/uL (0-1.0); Monocytes % (A) 3 %; Neutrophils # (A) 20.7 k/uL (1.3-7.7); Neutrophils % (A) 94 %; Platelet Count 205 k/uL (150-450); RDW 14.8 % (11.5-15.5)
[2020-02-18 05:42] LABS: Calcium 8.7 mg/dL (8.4-10.2); Potassium 5.5 mmol/L (3.5-5.1)
[2020-02-18] MEDS: CEFEPIME 1 GM in SODIUM CHLORIDE 0.9% 50 ML IVPB SCH ×2 (06:29→09:09)
[2020-02-18] MEDS: LEVOTHYROXINE 137 MCG TAB PO SCH (06:34)
[2020-02-18] MEDS: FUROSEMIDE 10 MG/ML 4 ML VIAL IV SCH (06:57)
[2020-02-18] MEDS: ALBUTEROL HFA INHALER INHALATION SCH ×3 (07:39→20:03)
[2020-02-18] MEDS: carvediloL 12.5 MG TAB PO SCH (07:55)
[2020-02-18 08:36] LABS: Glucose,Whole Blood 394 mg/dL (75-99)
[2020-02-18] MEDS ORDERED: FAMOTIDINE 20 MG TAB PO SCH (09:00)
[2020-02-18] MEDS: CHOLECALCIFEROL 400 UNIT TAB PO SCH (09:05)
[2020-02-18] MEDS: dexAMETHasone 2 MG TAB PO SCH (09:05)
[2020-02-18] MEDS: ATORVASTATIN 10 MG TAB PO SCH (09:05)
[2020-02-18] MEDS: ASCORBIC ACID 500 MG TAB PO SCH (09:05)
[2020-02-18] MEDS: ASPIRIN 81 MG PO SCH (09:05)
[2020-02-18] MEDS: allopurinoL 100 MG TAB PO SCH (09:05)
[2020-02-18] MEDS: ENOXAPARIN 30 MG/0.3 ML SYRINGE SQ SCH (09:09)
[2020-02-18] MEDS: ZINC SULFATE 220 MG CAP PO SCH (09:10)
[2020-02-18] MEDS: HYDROCORTISONE 10 MG TAB PO SCH (09:10)
--- NOTE | 2020-02-18 10:28 | PN ---
PROGRESS NOTE PULMONARY/CRITICAL CARE PROGRESS NOTE: DATE OF SERVICE: February 18, 2020. Critical care time greater than 30 minutes. An 84-year-old female who was admitted on February 13 with a diagnosis of acute hypoxemic respiratory failure secondary to COVID-19 pneumonia/pneumonitis. This was also complicated by pulmonary vascular congestion and mild fluid overload. The patient may also have healthcare acquired pneumonia. She had a recent hospitalization at [facility] between February 01 and . At that time, she was admitted there for diagnosis of diastolic congestive heart failure. The patient was moved from the 6th floor to the ICU a couple days ago. This was because of worsening hypoxemic respiratory failure. She remains on BiPAP at 12/5 and 90%. Her saline is running at 20 mL an hour. She is now a DNR. I did mention to the nurse that we should talk to the family about comfort measures. Currently, the patient is not showing any responsiveness. She becomes quite hypoxemic when she takes off her BiPAP device. She does not speak any Uz[place]. I did speak to the daughter yesterday, which is how the patient was made a DO NOT RESUSCITATE. In addition, she has a history of obesity, COPD, kidney injury, diabetes, hypertension, hyperlipidemia, hypothyroidism, and chronic adrenal insufficiency. PHYSICAL EXAMINATION: VITAL SIGNS: Current vital signs are reviewed. Temperature is 98.9, heart rate is 52, respiratory rate between 25 and 30 breaths per minute, blood pressure 158/63, mean 94, saturations are in the low 90s on the BiPAP. Appears quite tachypneic and dyspneic. HEENT: Examination is grossly unremarkable. BiPAP mask in place. NECK: Supple. Full range of motion. No adenopathy. Neck veins are flat. CARDIOVASCULAR: Examination reveals regular rhythm and rate. Heart rate in the 60s. S1, S2 normal. Heart sounds are distant. No murmur. LUNGS: Reveal diffuse coarse rhonchi. No wheezes or crackles. Breath sounds equal but diminished. ABDOMEN: Soft. Bowel sounds are not noted. EXTREMITIES: Intact. Minimal edema. No cyanosis or clubbing. SKIN: Without rash. NEUROLOGIC: Examination is difficult to assess. She is poorly responsive. LAB DATA: Reviewed. White count 22, hemoglobin 11.5, hematocrit 35.5, platelet count 305,000. Sodium 137, potassium 5.5, chloride 106, CO2 19, anion gap is 12. BUN and creatinine were 111 and 1.69 respectively. Glucose 333. Microbiology including blood cultures are negative. IMAGING: No chest x-ray today. Yesterday's chest x-ray showed diffuse extensive patchy airspace disease. MEDICATIONS: Reviewed. Currently, the patient is on Tylenol, albuterol inhaler, allopurinol, vitamin C, aspirin, Lipitor, Coreg, Maxipime, vitamin D3, Decadron, Lovenox, famotidine, Lasix, hydralazine, hydrocortisone, insulin, levothyroxine, Narcan, remdesivir and zinc. The patient is not able to take any oral medications currently because of her poor mental status. ASSESSMENT: 1. Acute hypoxemic respiratory failure secondary to COVID-19 pneumonitis/pneumonia, possibly complicated by mild fluid overload/CHF, as well as underlying healthcare acquired pneumonia. 2. Recent hospitalization for 7 or 8 days at [facility], with diastolic CHF, discharged on February 08. 3. Low-grade fever, likely related COVID-19 infection and/or pneumonia. 4. Acute kidney injury. 5. History of chronic obstructive pulmonary disease. 6. Diabetes mellitus with diabetic neuropathy. 7. Essential hypertension. 8. Hyperlipidemia. 9. Hypothyroidism. 10.Chronic renal insufficiency. PLAN: The patient is doing poorly. She is not awake enough to be able to take any oral medications. When she comes off the BiPAP, she desaturates down into the 60s. She is a DNR. Soon we are going to talk to the family about comfort measures. No additional recommendations are made. Overall prognosis remains poor. Critical care time greater than 30 minutes. MMODL / IJN: [id number] /
[2020-02-18] MEDS ORDERED: MORPHINE SULFATE 4 MG/ML SYRINGE IV PRN (11:26)
[2020-02-18] MEDS ORDERED: ATROPINE OPHTH SOLN 1% 5ML BTL SUBLINGUAL PRN (11:26)
[2020-02-18] MEDS ORDERED: LORazepam 2 MG/ML INJ IV PRN (11:26)
[2020-02-18] MEDS ORDERED: MORPHINE SULFATE (100 MG/2 ML) 100 MG in SODIUM CHLORIDE 0.9% 100 ML IV SCH (11:30)
--- NOTE | 2020-02-18 12:19 | P.PN ---
Subjective This is an 84-year-old female patient of Dr. Jacques, with a past medical history of diastolic congestive heart failure, COPD, hypothyroidism, adrenal insufficiency, hypertension and diabetes. Patient was recently admitted [facility] for complaints of shortness of breath and was treated for a CHF exacerbation. She was discharged home on 02/08. Patient returned back to the emergency department with low-grade fever, productive cough and worsening shortness of breath. Patient was tested for Covid 19 in the emergency department, and was positive. Chest x-ray showed congestive heart failure, right upper lobe and right lower lobe pneumonia. Troponins were negative 2, wbc 8.1, hemoglobin 10.3, sodium 126, potassium 5.8, BUN 74, creatinine 2.3. Cardiology, nephrology, pulmonary have been consulted. Patient currently 97% on 3 L via nasal cannula, vital signs are stable. 02/15: Patient evaluated, noted to laying in bed. Patient reports more difficulty breathing and more short of breath today. Repeat x-ray shows worsening bilateral lung infiltrates. She continues on Decadron 6 mg, along with Lasix 40 mg IV push every 12 hours. Pro-calcitonin was low at 0.08, antibiotics were discontinued. Pulmonary continues to follow, patient may benefit from Remdesivir or convalescent plasma. Patient is requiring 4 L via nasal cannula and is saturating upper 80s to lower 90s. Echocardiogram is pending, repeat chest x-ray tomorrow morning. 02/16: Patient evaluated this morning in the ICU patient continued to have increased shortness of breath and oxygen demands are higher, she was placed on BiPAP and moved from the floor to ICU. Pulmonary did start her back on the Zosyn for possible healthcare acquired pneumonia, she was also started on Remdesivir and convalescent plasma. Repeat chest x-ray shows extensive multifocal patchy airspace disease, minimal improvement. Blood cultures show no growth to date. 02/17: Patient evaluated again in the ICU this morning, she continues to overall decline. Now requiring BiPAP at 90% and is saturating in the low 90s, if she's taken off the BiPAP she goes down to the low 60s , she is now less responsive. Critical care team did speak with the daughter yesterday and patient was made a DO NOT RESUSCITATE and does not want mechanical ventilation. Critical care team plans to speak with her daughter again regarding comfort care Objective - Vital Signs Vital signs: Vital Signs Temp 98.9 F 02/18/20 00:00 Pulse 60 02/18/20 11:00 Resp 26 H 02/18/20 11:00 BP 154/60 02/18/20 11:00 Pulse Ox 91 L 02/18/20 11:00 Intake & Output 02/17/20 02/18/20 02/18/20 18:59 06:59 18:59 Intake Total 320 220 100 Output Total 1200 475 300 Balance -880 -255 -200 Weight 86.3 kg Intake: IV 220 220 100 0.9 220 220 100 Oral 100 Output: Urine 1200 475 300 Other: Voiding Method External Catheter External Catheter External Catheter - Exam - Constitutional General appearance: tachypnea, dyspneic, on BiPAP - EENT Eyes: EOMI, PERRLA, normal appearance ENT: hearing grossly normal, normal oropharynx, no pharyngeal erythema, no thrush - Neck Neck: no lymphadenopathy, normal ROM, no rigidity, no thyromegaly - Respiratory Respiratory: bilateral: diminished, diffuse coarse rhonchi and crackles - Cardiovascular Rhythm: regular Heart sounds: normal: S1, S2 leg Peripheral Edema: bilateral: 3+ - Gastrointestinal General gastrointestinal: no distended, no hepatomegaly, normal bowel sounds, no organomegaly, no splenomegaly, no tenderness - Neurologic Neurologic: Patient is minimally responsive - Musculoskeletal Musculoskeletal: generalized weakness, strength equal bilaterally, no right sided weakness, no left sided weakness - Psychiatric Psychiatric: A&O x's 3, appropriate affect - Labs CBC & Chem 7: 02/18/20 04:53 02/18/20 04:53 Labs: Abnormal Lab Results - Last 24 Hours (Table) 02/17/20 02/18/20 02/18/20 Range/Units 18:28 04:53 04:53 WBC 22.0 H (3.8-10.6) k/uL RBC 3.60 L (3.80-5.40) m/uL Neutrophils # 20.7 H (1.3-7.7) k/uL Lymphocytes # 0.5 L (1.0-4.8) k/uL Potassium 5.5 H (3.5-5.1) mmol/L Carbon Dioxide 19 L (22-30) mmol/L BUN 111 H* (7-17) mg/dL Creatinine 1.69 H (0.52-1.04) mg/dL Glucose 333 H (74-99) mg/dL POC Glucose (mg/dL) 249 H (75-99) mg/dL 02/18/20 Range/Units 08:34 WBC (3.8-10.6) k/uL RBC (3.80-5.40) m/uL Neutrophils # (1.3-7.7) k/uL Lymphocytes # (1.0-4.8) k/uL Potassium (3.5-5.1) mmol/L Carbon Dioxide (22-30) mmol/L BUN (7-17) mg/dL Creatinine (0.52-1.04) mg/dL Glucose (74-99) mg/dL POC Glucose (mg/dL) 394 H (75-99) mg/dL Microbiology - Last 24 Hours (Table) 02/14/20 14:22 Blood Culture - Preliminary Blood No Growth after 72 hours 02/14/20 14:22 Blood Culture - Preliminary Blood No Growth after 72 hours Assessment and Plan Plan: 1. Acute hypoxic respiratory failure. Combination of COVID 19 pneumonia along with acute on chronic diastolic heart failure, possible underlining healthcare acquired pneumonia. Patient started on Lasix 40 mg twice a day, dexamethasone, Lovenox. She was started on Remdesivir and convalescent plasma yesterday, continues on cefepime, worsening respiratory failure, patient was made no code overall prognosis is very poor 2. Covid 19 pneumonia with possible underlining healthcare acquired pneumonia. Pulmonary on consult, continue dexamethasone 6 mg daily, convalescent plasma and Remdesivir started yesterday, cefepime 3. Acute on chronic diastolic heart failure. Cardiology on consult, continue Lasix 40 mg twice a day IV, and Coreg 25 mg twice a day, and hydralazine 25 mg 3 times a day, I&Os 4. Acute kidney injury on chronic kidney disease stage III. We'll continue to watch kidney function closely, nephrology on consult 5. COPD. Continue updraft treatments 6. Hypertension. Continue Coreg 25 mg twice a day as well as hydralazine 25 mg 3 times a day 7. Hypothyroidism. Continue levothyroxine 137 g daily 8. Adrenal insufficiency continue Cortef 25 mg at bedtime, 10 mg in the morning 9. Diabetes mellitus type 2. Levemir 30 units at bedtime along with NovoLog 3 units with meals plus Accu-Cheks sliding scale coverage 10. Hyperlipidemia. Continue atorvastatin 10 mg daily 11. History of gout. No current exacerbation, resume allopurinol 300 mg daily 12. GI prophylaxis. Pantoprazole 13. DVT prophylaxis. Lovenox The above impression and plan of care have been discussed and directed by signing physician. Lilliana Waldron nurse practitioner acting as scribe for signing physician.
[2020-02-18] MEDS ORDERED: INSULIN ASPART (NovoLOG) 100 UNIT/ML VIAL SQ SCH (12:30)
--- NOTE | 2020-02-18 14:28 | PN ---
PROGRESS NOTE The patient is seen for followup for acute kidney injury associated with Covid 19 pneumonia sepsis. The patient's respiratory status has deteriorated. She is maintained on BiPAP. Family will be coming in today. Decision is being made for comfort care measures. Urine output at about 1675 mL for 24 hours. The patient is not examined. The case is discussed with nursing staff. VITAL SIGNS: Reviewed. Blood pressure this morning 154/60, heart rate 60 per minute. She is afebrile. The patient is maintained on BiPAP. LABS: Reviewed. Lab show sodium 137, potassium 5.5, chloride 106, CO2 is 19, BUN 11, serum creatinine 169, blood sugar was 394. ASSESSMENT: 1. Acute kidney injury associated with underlying sepsis Covid 19 pneumonia and infection. 2. Hyperkalemia associated with acute kidney injury and hyperglycemia. 3. Covid 19 pneumonia and hypoxic respiratory failure. 4. Metabolic acidosis associated with renal failure. PLAN: We will sign off as there are plans to change to comfort care measures. MMODL / IJN: [id number] /
[2020-02-18] MEDS: SODIUM CHLORIDE 0.9% 1,000 ML IV SCH (19:38)
--- NOTE | 2020-02-18 20:35 | CONS ---
CONSULTATION DATE OF SERVICE: 02/15/2020 REASON FOR CONSULT: Renal failure. HISTORY OF PRESENT ILLNESS: The patient is an 84-year-old female with history of hypertension, chronic kidney disease, NKF stage III, osteoarthritis and type 2 diabetes who was admitted to the hospital with complaints of shortness of breath and cough. The patient tested positive for COVID-19. Serum creatinine was 2.2 mg/dL on initial admission. Prior creatinine was about 1.14 on 09/03/2018. Blood pressure has not been low. Patient has had good urine output. She is currently maintained on Lasix and is being diuresed. PAST MEDICAL HISTORY: Significant for hypertension, CKD, type 2 diabetes, gastroesophageal reflux disease, hyperlipidemia, CHF, osteoarthritis, hypothyroidism, history of adrenal insufficiency, menopause, UTI, diabetic neuropathy, gout. PAST SURGICAL HISTORY: Total bilateral knee arthroplasty, right hip arthroplasty, cataract surgery. SOCIAL HISTORY: Negative for smoking, drug abuse or alcohol abuse. MEDICATIONS: Medications at home prior to admission included Cortef, Synthroid, Norvasc, Tylenol, Zyloprim, aspirin, Coreg, Lasix, insulin, Crestor, hydralazine. ALLERGIES: NONE. REVIEW OF SYSTEMS: As per HPI. Other systems negative. PHYSICAL EXAMINATION: Patient is comfortable, awake. She is not in any acute distress. Blood pressure was 137/64, heart rate 62 per minute. Patient is afebrile. ABDOMEN: Soft, nontender. Examination of lower extremities shows no significant edema. Heart and lungs were not examined, as patient has COVID pneumonia. HAND TOOL LAPPER exam grossly intact. Patient has been moving all extremities. LABS: Labs show hemoglobin 10.3, sodium 126, potassium 5.8, BUN 74, serum creatinine 2.3 mg/dL. UA shows trace protein, small blood, no significant cells noted. ASSESSMENT: 1. Acute kidney injury associated with underlying COVID infection, mostly acute tubular necrosis, currently nonoliguric. Rule out urine retention. 2. Hyperkalemia associated with acute kidney injury. Possible urine retention. Also the hyperglycemia is contributing to the hyperkalemia. No active GI bleed noted at this time. 3. Hyponatremia associated with significant hyperglycemia. Sodium dropped from 131 to 126 today, mildly hypervolemic. Patient is maintained on Lasix, which we will continue. 4. COVID-19 pneumonia, maintained on steroids. 5. History of adrenal insufficiency, maintained on steroids prior to admission. PLAN: Treat hyperglycemia. Repeat labs this p.m. Treatment for COVID pneumonia. Avoid hypotension and repeat labs in a.m. Monitor urine output accurately. Thank you for this consultation. Will continue to follow the patient with you during her hospitalization. JOHN / SANDOR: [id number] /
[2020-02-18 22:43] VITALS: BP 72/39; PULSE 39; RESP 12
--- NOTE | 2020-03-01 12:24 | CDI ---
Documentation Clarification Form Mortality Review Date: 03/01/2020 12:06:58 PM From: Elizabet Cedillo RN, CCDS Admit Date: 02/14/2020 03:27:00 PM Patient Name: Berkley Casarez Visit Number: [id number] Discharge Date: 02/19/2020 05:10:00 AM ATTENTION: The Clinical Documentation Specialists (CDI) and [facility] Coding Staff appreciate your assistance in clarifying documentation. Please respond to the clarification below the line at the bottom and electronically sign. The CDI & [facility] Coding staff will review the response and follow-up if needed. Please note: Queries are made part of the Legal Health Record. If you have any questions, please contact the author of this message via ITS. Dr. Noel Bullock The patient presented with Covid 19 pneumonia and sepsis is documented by nephrology and requires Attending MD acknowledgement and documentation. History/Risk Factors: CHF, COPD, DM2, Adrenal insufficiency with chronic hydrocortisone replacement, CKD stage 3 Clinical Indicators: 02/17 Nephrology note: "Acute kidney injury associated with underlying sepsis Covid 19 pneumonia and infection." 02/13-02/17 WBC 10.4/8.1/16.4/34.4/22 02/13 Lactic acid: 0.9 02/13 1422 Blood cultures x 2: Negative 02/13 1350 Vitals signs on admission: Temp 99.3, HR 66, RR 24-28, B/P 151/68, Spo2 90% on room air, improved to 94% on 2L NC 02/13-02/16 Ferritin 122.5/309.1, LDH 1000/503/1751, CRP 79/7.5/67.9 Other Clinical Indicators: 02/13 + Coronavirus (PCR), SANTIAGO on CKD stage 3, acute hypoxic respiratory failure d/t Covid 19 pneumonia and aciute on chronic diastolic CHF, adrenal insufficiency Treatment: ID Consult: not ordered 1 unit of Convalescent plasma transfused 02/15 Remdesivir 200 mg IVPB x 1 followed by 100mg IVPB x 1 dose Antibiotics: 02/14 500 mg Zithromax Po X 1 dose 02/14 Ceftriaxone 2 g,m IVPB x 1 dose 02/16 Cefepime 2gm IVPB x 1 dose followed by 1gm IVPB Q 12 hrs 02/15 Remdesivir 200 mg IVPB x 1 followed by 100mg IVPB x 1 dose In your professional opinion, please clarify if these findings signify one of the following conditions, whether the condition is POA, and cause, if known: Condition Sepsis ruled out xx Sepsis Severe Sepsis Other, please specify Unable to determine Present on Admission x Yes No Identify the (suspected) organism_COVID 19 Link or clarify if there is associated (due to/with): Organ failure SIRS Criteria (2 or more of the following may indicate SIRS): -Temperature < 96.8F (36C) or > 101.0F (38.3C) -Heart Rate > 90 bpm -Respiratory Rate > 20 breaths/min or PaCO2 < 32 mmHg -White Blood Cell Count > 12,000 or < 4,000 cells/mm3 or > 10% bands -Lactate >2.0 mmol/L (>4.0 is equivalent to septic shock) (Last Revision: May 2017) MTDD
--- NOTE | 2020-03-02 13:44 | P.DS ---
Providers Date of admission: 02/14/20 15:27 Expected date of discharge: 02/19/20 Attending physician: Noel Bullock Consults: 02/14/20 15:28 Consult Physician Routine Consulting Provider: Sukhdeep Lara Consult Reason/Comments: covid 19 Do you want consulting provider notified?: Yes 02/14/20 15:57 Consult Physician Urgent Consulting Provider: Og Appiah Consult Reason/Comments: Heart failure Do you want consulting provider notified?: Yes 02/14/20 15:58 Consult Physician Urgent Consulting Provider: Lloyd Fernandez Consult Reason/Comments: SANTIAGO Do you want consulting provider notified?: Yes Primary care physician: [facility] Course: This is an 84-year-old female patient of Dr. Jacques, with a past medical history of diastolic congestive heart failure, COPD, hypothyroidism, adrenal insufficiency, hypertension and diabetes. Patient was recently admitted to [facility] for complaints of shortness of breath and was treated for a CHF exacerbation. She was discharged home on 02/08. Patient returned back to the emergency department with low-grade fever, productive cough and worsening shortness of breath. Patient was tested for Covid 19 in the emergency department, and was positive. Chest x-ray showed congestive heart failure, right upper lobe and right lower lobe pneumonia. Troponins were negative 2, wbc 8.1, hemoglobin 10.3, sodium 126, potassium 5.8, BUN 74, creatinine 2.3. Cardiology, nephrology, pulmonary have been consulted. Patient currently 97% on 3 L via nasal cannula, vital signs are stable. 02/15: Patient evaluated, noted to laying in bed. Patient reports more difficulty breathing and more short of breath today. Repeat x-ray shows worsening bilateral lung infiltrates. She continues on Decadron 6 mg, along wi th Lasix 40 mg IV push every 12 hours. Pro-calcitonin was low at 0.08, antibiotics were discontinued. Pulmonary continues to follow, patient may benefit from Remdesivir or convalescent plasma. Patient is requiring 4 L via nasal cannula and is saturating upper 80s to lower 90s. Echocardiogram is pending, repeat chest x-ray tomorrow morning. 02/16: Patient evaluated this morning in the ICU patient continued to have increased shortness of breath and oxygen demands are higher, she was placed on BiPAP and moved from the floor to ICU. Pulmonary did start her back on the Zosyn for possible healthcare acquired pneumonia, she was also started on Remdesivir and convalescent plasma. Repeat chest x-ray shows extensive multifocal patchy airspace disease, minimal improvement. Blood cultures show no growth to date. 02/17: Patient evaluated again in the ICU this morning, she continues to overall decline. Now requiring BiPAP at 90% and is saturating in the low 90s, if she's taken off the BiPAP she goes down to the low 60s , she is now less responsive. Critical care team did speak with the daughter yesterday and patient was made a DO NOT RESUSCITATE and does not want mechanical ventilation. Critical care team plans to speak with her daughter again regarding comfort care Patient on the nurseryperson of February 18. Please see nursing documentation for details. Discharge diagnoses: 1. Sepsis and acute hypoxic respiratory failure secondary to combination of COVID 19 pneumonia, acute on chronic diastolic heart failure, possible underlining gram-negative pneumonia, all present on admission. 2. Sepsis with acute multiorgan failure with acute kidney injury, acute respiratory failure and liver involvement. 3. Covid 19 pneumonia with possible gram-negative pneumonia. 4. Acute on chronic diastolic heart failure. 5. Acute kidney injury on chronic kidney disease stage III. 6. COPD. 7. Hypertension. 8. Hypothyroidism. 9. Adrenal insufficiency. 10. Diabetes mellitus type 2. 11. Hyperlipidemia. 12. Chronic gout. Impression and plan of care have been directed as dictated by the signing physician. Jocy Coombs nurse practitioner acting as scribe for signing physician. Patient Condition at Discharge: Undetermined Plan - Discharge Summary Discharge Rx Participant: No New Discharge Prescriptions: No Action Levothyroxine Sodium [Synthroid] 137 mcg PO DAILY Hydrocortisone [Cortef] 10 mg PO DAILY Hydrocortisone [Cortef] 20 mg PO HS amLODIPine BESYLATE [Norvasc] 10 mg PO HS Rosuvastatin Calcium [Crestor] 5 mg PO DAILY Insulin Lispro [humaLOG Kwikpen] 28 unit SQ AC-TID Insulin Glargine,Hum.rec.anlog [Lantus Solostar] 30 unit SQ HS Carvedilol [Coreg] 25 mg PO BID Aspirin EC [Ecotrin Low Dose] 81 mg PO DAILY hydrALAZINE HCL [Apresoline] 25 mg PO TID Allopurinol [Zyloprim] 300 mg PO DAILY Acetaminophen Tab [Tylenol] 650 mg PO Q6H PRN PRN Reason: Pain Furosemide [Lasix] 40 mg PO DAILY Discharge Medication List Hydrocortisone [Cortef] 10 mg PO DAILY 08/23/13 [History] Hydrocortisone [Cortef] 20 mg PO HS 08/23/13 [History] Levothyroxine Sodium [Synthroid] 137 mcg PO DAILY 08/23/13 [History] amLODIPine BESYLATE [Norvasc] 10 mg PO HS 08/09/17 [History] Acetaminophen Tab [Tylenol] 650 mg PO Q6H PRN 02/14/20 [History] Allopurinol [Zyloprim] 300 mg PO DAILY 02/14/20 [History] Aspirin EC [Ecotrin Low Dose] 81 mg PO DAILY 02/14/20 [History] Carvedilol [Coreg] 25 mg PO BID 02/14/20 [History] Furosemide [Lasix] 40 mg PO DAILY 02/14/20 [History] Insulin Glargine,Hum.rec.anlog [Lantus Solostar] 30 unit SQ HS 02/14/20 [History] Insulin Lispro [humaLOG Kwikpen] 28 unit SQ AC-TID 02/14/20 [History] Rosuvastatin Calcium [Crestor] 5 mg PO DAILY 02/14/20 [History] hydrALAZINE HCL [Apresoline] 25 mg PO TID 02/14/20 [History] Follow up Appointment(s)/Referral(s): Lewis Isaac DO [Primary Care Provider] - 1-2 days Discharge Disposition: - Preliminary Cause of Preliminary Cause of : COVID 19 pneumonia
== END 2020-02-19 05:10 | disposition expired | DRG 871 ==
LOC: EC 13:43 → 6NMEDSUR 15:27 → 2SICU 02-17 00:45 → 6NMEDSUR 02-18 15:51
PROVIDERS: ADMIT Internal Medicine Geriatric Medicine; ATTEND Internal Medicine Geriatric Medicine
PROC: 5A09457 Assistance with Respiratory Ventilation, 24-96 Consecutive Hours, Continuous Positive Airway Pressure (ICD-10-PCS; principal; 2020-02-16)
PROC: XW033E5 Introduction of Remdesivir Anti-infective into Peripheral Vein, Percutaneous Approach, New Technology Group 5 (ICD-10-PCS; 2020-02-16)
PROC: XW13325 Transfusion of Convalescent Plasma (Nonautologous) into Peripheral Vein, Percutaneous Approach, New Technology Group 5 (ICD-10-PCS; 2020-02-16)
DX: A41.89 Other specified sepsis (principal); U07.1 COVID-19; J12.82 Pneumonia due to coronavirus disease 2019; I50.33 Acute on chronic diastolic (congestive) heart failure; J96.01 Acute respiratory failure with hypoxia; N17.0 Acute kidney failure with tubular necrosis; J44.0 Chronic obstructive pulmonary disease with (acute) lower respiratory infection; E27.40 Unspecified adrenocortical insufficiency; I13.0 Hypertensive heart and chronic kidney disease with heart failure and stage 1 through stage 4 chronic kidney disease, or unspecified chronic kidney disease; E87.1 Hypo-osmolality and hyponatremia; E87.2 Acidosis; E11.22 Type 2 diabetes mellitus with diabetic chronic kidney disease; E03.9 Hypothyroidism, unspecified; D72.810 Lymphocytopenia; E11.65 Type 2 diabetes mellitus with hyperglycemia; R32 Unspecified urinary incontinence; Z66 Do not resuscitate; Z51.5 Encounter for palliative care; M19.90 Unspecified osteoarthritis, unspecified site; K21.9 Gastro-esophageal reflux disease without esophagitis; E11.40 Type 2 diabetes mellitus with diabetic neuropathy, unspecified; Z96.641 Presence of right artificial hip joint; Z96.653 Presence of artificial knee joint, bilateral; E78.5 Hyperlipidemia, unspecified; M10.9 Gout, unspecified; E66.9 Obesity, unspecified; E87.5 Hyperkalemia; T38.0X5A Adverse effect of glucocorticoids and synthetic analogues, initial encounter; N18.30 Chronic kidney disease, stage 3 unspecified; Z79.899 Other long term (current) drug therapy; Z79.890 Hormone replacement therapy; Z79.82 Long term (current) use of aspirin; Z79.52 Long term (current) use of systemic steroids; Z79.4 Long term (current) use of insulin; Z87.440 Personal history of urinary (tract) infections; Z98.42 Cataract extraction status, left eye; Z98.41 Cataract extraction status, right eye; Z83.3 Family history of diabetes mellitus; Z68.37 Body mass index [BMI] 37.0-37.9, adult
CPT/HCPCS: 36415; 71045; 80048; 80051; 80053; 81001; 82728; 83036; 83605; 83615; 83735; 83880; 84145; 84295; 84484; 85025; 85379; 85610; 85730; 86140; 86850; 86900; 86901; 87040; 87635; 93005; 93306; 94640; 94660; 94760; 96374; 96375; 99285